=== PATIENT | female | born 1945 | race Caucasian/White ===

== ENCOUNTER 2024-12-18 08:02 | Inpatient (IN) | payer MEDICARE, BC, SELFPAY ==
[2024-12-18] VITALS (24 sets, daily range): BP systolic 115–140; BP diastolic 57–103; PULSE 2–125; BMI 53.7; BMI 53.2
--- NOTE | 2024-12-18 05:09 | ED.GENMED ---
History of Present Illness
General
Chief Complaint: Breathing Problem
Source: patient, ambulance crew, [facility] and physician
Exam Limitations: none
Time Seen by Provider: 12/18/24 04:44
Nursing documentation reviewed up to this point in time: agreed with
History of Present Illness
History of Present Illness:
The patient is a 79-year-old female with a recent history of atrial fibrillation and suspected heart failure, which was identified during her recent visit to [facility]. She was recently discharged to [facility]. She is found to have
worsening hypoxia they are also tachycardic specifically significantly hypoxic today after she took her CPAP off due to it not fitting correctly earlier in the evening. Currently pulse ox was very low in the [facility] facility. She did have some
shortness of breath and has had some difficulty with increased phlegm. Does have a history of smoking and a history of COPD.
Review of Systems
Review of Systems
Allergies reviewed?: Yes
All Other Systems: ROS reviewed and negative except as documented in HPI and ROS
Phy Exam
Physical Exam
Physical Exam:
GENERAL: Alert , in no apparent distress
EYE: pupils equal and reactive
NECK: Supple, no significant adenopathy.
ENT: o/p clr, mmm.
CARDIAC: Regular rate and rhythm .
LUNGS: Diffuse expiratory rales
ABDOMEN: Soft, without focal tenderness, no r/g, no cvat
NEUROLOGICAL: Alert and oriented, no focal neuro deficits
SKIN: Warm and dry, skin intact.
MUSCULOSKELETAL: No edema, well perfused.
PSYCH: Normal and appropriate interaction.
Scores
Heart Failure Risk
Heart Failure Risk Score: Not Applicable
Course
Orders/Labs/Results
Orders:
Orders
12/18/24 04:44
Electrocardiogram (*1) Stat
Reason for Study: Other
Other Reason for Exam: chest pain
EKG- Treatment ONCE
CR Chest Portable - 1 View Urgent
Comment:
Reason For Exam: sob
Reason Study Needs to be Portable: Patient Unstable
12/18/24 05:02
Complete Blood Count/With Diff Urgent
Comprehensive Metabolic Panel Urgent
Free T4 Urgent
Comment: ADD ON
Magnesium Urgent
TSH Urgent
12/18/24 05:10
NT-proBNP Urgent
Troponin I Urgent
12/18/24 05:14
Cefepime HCl [Maxipime] 2,000 mg IV NOW STA
Furosemide [Lasix] 40 mg IV NOW STA
12/18/24 Breakfast
Cholesterol Lowering
At Your Request: Full Participation
Cholesterol Lowering: Sodium, 2 Gram
12/18/24 06:04
Vancomycin [Vancocin] 2,000 mg 0.9% Sodium Chloride 500 ml [Nss] 500 ml IV NOW
12/18/24 06:25
Cefepime HCl [Maxipime] 2,000 mg .ROUTE .STK-MED ONE
12/18/24 07:11
Admit/Transfer Patient As Directed
Co-Sign Provider:
Level of Care: Inpatient admission
Assign to:: IMU- Intermediate Care
Physician / Group: [facility]
Diagnosis: Hypoxic respiratory failure
Reason for Hospitalization: Hypoxia
Expected length of stay greater than two midnights?: Yes
ELOS- Estimated Length of Stay in days: 2
I certify the patient meets the requirements for IP care: Yes
PRN Pain Medication Management As Directed
May give lesser potent ordered pain med per pt: Yes
preference::
Protocol:: Medication orders for pain may be administered in a
manner that supports deferring to patient preference
when the pt is:
- Requesting an ordered lesser potent pain medication.
Least to most potent pain medications are defined
as: acetaminophen < NSAID < tramadol < opioids
(morphine, oxycodone, hydromorphone).
- Requesting a lesser dose of the same medication IF
ORDERED.
- Requesting a less intrusive route of administration
if both routes are prescribed by the provider (PO <
IV).
12/18/24 07:12
Code Status As Directed
Resuscitation Status: Do not resuscitate
Reached after discussion with pt or family/Healthcare POA: Yes
12/18/24 07:13
DNR Bracelet Application ONCE
12/18/24 07:21
COVID-19 Antigen Stat
Source: Nasal Swab
Influenza A+B Rapid Molecular Stat
MOIRA Source: Nasal Swab
Specimen Description:
12/18/24 07:26
Arterial Blood Gas Stat
%Oxygen/Room Air: 30
Aspirin Chewable [Low Strength Aspirin] 324 mg PO NOW STA
12/18/24 07:30
Diltiazem 125 mg/125 ml Nss [Cardizem] 125 mg in 125 ml IV PER PROTOCOL
Initial dose in mg/hr, then titrate:: 5
Titrate to keep:: Heart rate 80-100 bpm
Titrate by mg/hr:: 5 mg/hr
Frequency of titrations (minutes):: 15
Maximum dose in mg/hr:: 15
12/18/24 09:45
Apixaban [Eliquis] 5 mg PO BID
Diltiazem 125 mg/125 ml Nss [Cardizem] 125 mg in 125 ml IV PER PROTOCOL
Currently infusing. Continue current dose and titrate:: Yes
Titrate to keep:: Heart rate 80-100 bpm
Titrate by mg/hr:: 5 mg/hr
Frequency of titrations (minutes):: 15
Maximum dose in mg/hr:: 15
Guaifenesin/Dextromethorphan [Robitussin Dm] 5 ml PO Q4HPRN PRN
Ipratropium/Albuterol Sulfate [Duoneb] 3 ml INH R Q4HPRN PRN
Ipratropium/Albuterol Sulfate [Duoneb] 3 ml INH R QID
Nicotine [Nicoderm Transdermal] 7 mg TRANSDERM DAILY
12/18/24 09:45
Echo 2D MMode Color/Doppler Routine
Reason for Study: heart failure
CARDIOLOGY CONSULT Routine
Consulting Provider: Robinson Love
Was physician already notified: Yes
HF DIETARY CONSULT Routine
HF EDUCATOR CONSULT Routine
Comment:
WOUND/OSTOMY CONSULT Routine
Reason for Consult: sacral wound
VTE Contraindication Routine
VTE Mechanical Device Contraindication: Medical Contraindication
Pharmocologic Contraindication: Medical Contraindication
Sputum Culture [Respiratory Culture/Gram Stain] Routine
MOIRA Source: Sputum
Specimen Description:
Activity As Directed
Activity Level: With Assistance
Intake/ Output As Directed
Frequency: Per unit guidelines
Patient Education As Directed
Type: CHF folder
Comment: give on admission. Document in Interdisciplinary Education record
Sleep Apnea Assessment by RN As Directed
Comment:
Physician Instructions:
Vital Signs As Directed
Frequency: Other
Additional Instructions:: Q12 or per unit guidelines if more frequent.
Weight As Directed
Frequency: Daily
Type of Scale: Standing Scale
Comment: Daily morning weight. If unable to stand, use balanced bed scale.
Weight As Directed
Frequency: Once
Type of Scale: Standing Scale
Comment: Upon Admission. If unable to stand, use balanced bed scale.
Bipap [RESP] Routine
Patient to use own unit?: No
Inspiratory Pressure (cm H2O): 10
Expiratory Pressure (cm H2O): 5
Oxygen Liter Flow: 4
Instructions: Titrate to patient comfort or home settings
O2 Therapy [RESP] Routine
Nasal Cannula Liter Flow: 4 LPM
Titrate/Wean O2 to maintain O2 sat greater than (%): 90
Pulse Ox/cont/shift [RESP] Routine
Quantity: 1
Special Instructions: Daily pulse oximetry at rest. If greater than 92% at rest also obtain pulse oximetry
while ambulating as tolerated.
12/18/24 10:00
Doxycycline Hyclate [Vibramycin] 100 mg 0.9% Sodium Chloride 250 ml [Nss] 250 ml IV Q12H
12/18/24 11:00
Atorvastatin [Lipitor] 20 mg PO DAILY
Levothyroxine [Synthroid] 175 mcg PO DAILY@0600
Metoprolol [Lopressor] 50 mg PO BID
12/18/24 16:00
Furosemide [Lasix] 80 mg IV BID AT 0800,1600
12/18/24 16:24
Troponin I Q6H
Comment: at admission & every 6 hours x 2 (3 total), ECG to be done with each level
12/18/24 23:17
Troponin I Q6H
Comment: at admission & every 6 hours x 2 (3 total), ECG to be done with each level
12/18/24 23:21
Legionella Urinary Antigen Routine
MOIRA Source: Urine
Specimen Description:
Strep pneumoniae Antigen Routine
MOIRA Source: Urine
Specimen Description:
12/19/24 05:03
Basic Metabolic Panel IN AM
Complete Blood Count/No Diff IN AM
Magnesium IN AM
12/19/24 08:00
Aspirin Low Dose EC [Aspir Low (Enteric Coated)] 81 mg PO DAILY
12/20/24 06:00
Basic Metabolic Panel IN AM
12/21/24 06:00
Basic Metabolic Panel IN AM
Abnormal Lab Results
12/18/24 12/18/24 12/18/24
05:02 05:10 07:26
RBC 4.06 L 10^6/uL
(4.20-5.40)
Hgb 10.3 L g/dL
(12.0-16.0)
Hct 35.7 L %
(37.0-47.0)
MCH 25.4 L pg
(27.0-31.0)
MCHC 28.9 L g/dL
(33.0-37.0)
RDW 22.5 H %
(11.5-14.5)
MPV 11.9 H fL
(7.4-10.4)
Abs Immat Gran (auto) 0.1 H 10^3/uL
(0-0.05)
Absolute Neuts (auto) 6.8 H 10^3/uL
(1.4-6.5)
Absolute Lymphs (auto) 1.0 L 10^3/uL
(1.2-3.4)
Absolute Monos (auto) 1.4 H 10^3/uL
(0.1-0.6)
Immature Gran % 0.6 H %
(0-0.5)
Lymphocytes % 10.7 L %
(20.5-51.1)
Monocytes % 15.0 H %
(1.7-9.3)
pCO2 75 H* mmHg
(32-35)
pO2 66 L mmHg
(83-108)
HCO3 52.1 H* mmol/L
(21-28)
Chloride 96 L mmol/L
(98-107)
Carbon Dioxide 48 H mmol/L
(22-30)
BUN 21 H mg/dl
(7-17)
Troponin I 0.036 H* ng/ml
Total Protein 5.3 L g/dl
(6.3-8.2)
Albumin 2.9 L g/dl
(3.5-5.0)
TSH 8.05 H uIU/ml
(0.47-4.68)
12/18/24 05:02
12/18/24 05:02
Vital Signs
Initial and Last Documented VS:
Initial Vital Signs
Temp Pulse Resp BP Pulse Ox
98.4 F 127 40 136/73 95
12/18/24 04:37 12/18/24 04:37 12/18/24 04:37 12/18/24 04:37 12/18/24 04:37
Last Documented Vital Signs
Temp Pulse Resp BP Pulse Ox
98 F 84 18 168/97 95
12/19/24 15:17 12/19/24 18:06 12/19/24 18:06 12/19/24 12:58 12/19/24 18:06
MDM/Problems Addressed
MDM/Problems Addressed:
79-year-old female presenting from nursing facility with concerns of shortness of breath and worsening hypoxia over the past few days also has had increased respiratory secretions. Was recently in [facility] diagnosed with a flutter..
Patient is currently Eliquis and metoprolol. Additionally has had increased fluid retention to her legs and arms. Here she is tachycardic pulse ox is in the low 90s on 6 L. She is currently in a flutter. Blood pressure in the 130s over 70s. She
is interactive and able to speak. Chest x-ray was performed that showed a right lower lobe consolidation as well as increased vascular markings and potential signs of some slight edema diffusely. She was started on antibiotics as well as diuretic.
Plan to admit for further treatment.
*Critical Care Note
Total Time (30-74mins, 75-104mins- exclusive of procedures): Not Applicable
ED Attending Note
-
Portions of this chart may have been created with voice recognition software.� Occasional wrong word or��sound alike� substitutions may have occurred due to the inherent limitations of voice recognition software.
Discharge Plan
Departure
Patient Disposition: Admit
Date of Disposition: 12/18/24
Time of Disposition: 06:14
Admit to: IMU
Admit to doctor: Benito
Presentation/result/management discussed w/ accepting MD/DO: Hospitalist
Patient with high blood pressure during this ER visit?: No
Condition: Good
Covid-19: Not Applicable
Discharge Problem:
Pneumonia, Hypoxemia, Heart failure
Interventions
Interventions:
*Risk Screen - Suicide Last Done: 12/18/24 13:30
*General Assessment Last Done: 12/18/24 04:37
*Neglect/Abuse Screening Last Done: 12/18/24 04:37
*ED- Fall Risk Assessment Last Done: 12/18/24 04:37
*ED COVID-19 Vaccine History Last Done: 12/18/24 16:14
*Nursing Disposition Last Done: 12/18/24 09:26
ED- Cardiac Assessment Last Done: 12/18/24 04:45
ED- Pulmonary Assessment Last Done: 12/18/24 04:45
Discharge Date and Time
Discharge Date/Time: 12/18/24 09:30
[2024-12-18 05:56] LABS: % Basophils 0.4 % (0-2); % Eosinophils 0.7 % (0-6); % Immature Granulocytes 0.6 % (0-0.5); % Lymphocytes 10.7 % (20.5-51.1); % Neutrophils 72.6 % (42.2-75.2); Absolute Eosinophils 0.1 10^3/uL (0-0.7); Absolute Immature Granulocytes 0.1 10^3/uL (0-0.05); Absolute Monocytes 1.4 10^3/uL (0.1-0.6); Absolute Neutrophils 6.8 10^3/uL (1.4-6.5); Hematocrit 35.7 % (37.0-47.0); Hemoglobin 10.3 g/dL (12.0-16.0); Mean Corp Hgb Conc. 28.9 g/dL (33.0-37.0); Mean Corpuscular Hgb 25.4 pg (27.0-31.0); Mean Corpuscular Volume 87.9 fL (81.0-99.0); Mean Platelet Volume 11.9 fL (7.4-10.4); Nucleated Red Blood Cells % 0 %; Platelet Count 180 10^3/uL (130-400); Red Blood Cell Count 4.06 10^6/uL (4.20-5.40); Red Cell Dist. Width 22.5 % (11.5-14.5); White Blood Cell Count 9.4 10^3/uL (4.8-10.8)
[2024-12-18] MEDS: LASIX 40 MG IV (06:00)
[2024-12-18] MEDS: MAXIPIME 2000 MG IV (06:06)
[2024-12-18 06:08] LABS: NT-proBNP 1990 pg/ml; Troponin I 0.036 ng/ml
[2024-12-18 06:16] LABS: ALT (SGPT) 22 U/L (0-35); AST (SGOT) 22 U/L (14-36); Albumin 2.9 g/dl (3.5-5.0); Alkaline Phosphatase 62 U/L (38-126); Blood Urea Nitrogen 21 mg/dl (7-17); Calcium 8.6 mg/dl (8.4-10.2); Chloride 96 mmol/L (98-107); Estimated Creatinine Clearance 102 ml/min; Glucose 81 mg/dl (70-99); Magnesium 2.1 mg/dl (1.6-2.3); Potassium 3.7 mmol/L (3.5-5.1); Sodium 144 mmol/L (135-145); Total Bilirubin 0.8 mg/dl (0.2-1.3); Total Protein 5.3 g/dl (6.3-8.2); eGFR > 60.00
[2024-12-18] MEDS: VANCOCIN 540 MG IV (06:27)
[2024-12-18 06:28] LABS: TSH 8.05 uIU/ml (0.47-4.68)
[2024-12-18 06:30] LABS: Carbon Dioxide 48 mmol/L (22-30)
--- NOTE | 2024-12-18 06:48 | HPS.HSE ---
Family Physician
-
Family Physician: NOT KNOW UNKNOWN - PT DOES
Chief Complaint
-
Hypoxia
History of Present Illness
Patient is a 79-year-old female with past medical history significant for recent diagnosis of obstructive sleep apnea, atrial flutter, congestive heart failure, hypothyroidism, oxygen dependent COPD who presents from [facility] with acute hypoxic
episode.
Patient was recently discharged from [facility] where she was diagnosed as stated above and placed on 4 L on discharge. She was on furosemide 80 mg twice daily diltiazem and started on Eliquis. At the time of discharge she was satting mid
90s on 4 L. According the patient and family she started coughing 2 days ago. Initially it was yellow. However today from liquid diet patient stated she had greenish cough production which occurred 4 times. She was still satting on her usual 4 L
when she went to sleep. However she was found by hospital staff hypoxic without oxygen and CPAP off. Later attempted to place her back on BiPAP but dimension was nonfunctional. By time EMS arrived the patient was hypoxic to the low 40s. She was
still awake and responsive. EMS placed the patient on nonrebreather and got her oxygen up to the mid 90s. She was slowly titrated down. When the titrated to 5 L she was satting in the low 90s. However she desatted again and she was placed on
nonrebreather and brought to the emergency department.
She was not complaining of any chest pain. She denies having recent fevers or chills. She has no known sick contacts. It appears they have been titrating diltiazem and Lasix and currently she is getting 80 mg twice daily of Lasix and 360 mg daily
of diltiazem.
She was afebrile with temp of 98.4, blood pressure was 136/75, she was tachycardic to 127. Respiratory rate was in the mid 30s. ECG shows atrial flutter at a rate of 127. Chest x-ray revealed small pleural effusions, pulmonary edema with patchy
scattered opacities in the right lower lobe. Cannot rule out a retrocardiac opacity.
Troponin was elevated at 0.036, BNP was 1900.
CBC shows a white count 9.4 with otherwise unremarkable hemoglobin and platelets. Electrolytes notable for bicarb of 46, BUN, creatinine, LFTs were normal.
Medical History
Past Medical History
Past Medical History: Reports Other
Additional Past Medical History:
CHF unknown EF
Atrial flutter on anticoagulation
Obstructive sleep apnea
Emphysema on 4 L home O2
Hypothyroidism
Past Surgical History: Reports Other
Additional Past Surgical History:
Thyroidectomy
Right knee replacement
Social History
Tobacco: Smoker
Alcohol: None
Drug: None
Living: Halfway
Employment: Retired
Family History
Family History: Not pertinent
Allergies / Home Medications
Allergies reflects when Allergies were last updated in [facility].
Home Medications with original date entered in [facility]
Allergy/Medication List:
Allergies
Allergy/AdvReac Type Severity Reaction Status Date / Time
lisinopril Allergy Unknown Verified 12/18/24 04:35
Home Medications
acetaminophen 325 mg tablet (Tylenol) 650 mg PO Q6H PRN mild pain 12/18/24
apixaban 5 mg tablet 5 mg PO BID 12/18/24
aspirin 81 mg tablet 81 mg PO DAILY 12/18/24
atorvastatin 20 mg tablet 20 mg PO DAILY 12/18/24
bisacodyl 10 mg rectal suppository 10 mg HI Q12 PRN constipation 12/18/24
diltiazem HCl 360 mg capsule,extended release 24 hr 360 mg PO DAILY 12/18/24
furosemide 40 mg tablet (Lasix) 40 mg PO BID 12/18/24
ipratropium 0.5 mg-albuterol 3 mg (2.5 mg base)/3 mL nebulization soln 3 ml inhalation Q4H PRN wheezing 12/18/24
levothyroxine 175 mcg tablet 175 mcg PO DAILY 12/18/24
magnesium hydroxide 400 mg/5 mL oral suspension (Milk of Magnesia) 30 ml PO BID PRN constipation 12/18/24
magnesium oxide 400 mg PO TID 12/18/24
metoprolol tartrate 25 mg tablet 50 mg PO BID 12/18/24
nicotine 7 mg/24 hr daily transdermal patch 1 patch transdermal Q24H 12/18/24
potassium, sodium phosphates 280 mg-160 mg-250 mg oral powder packet (Phos-NaK) 1 packet PO BID PRN low blood sugar 12/18/24
Review of Systems
-
History Source: Patient
Constitutional: Reports No Symptoms
EENT: Reports No Symptoms
Respiratory: Reports Cough and Trouble Breathing
Cardiac: Reports No Symptoms
Abdomen/GI: Reports No Symptoms
: Reports No Symptoms
Musculoskeletal: Reports No Symptoms
Skin: Reports No Symptoms
Neurological: Reports No Symptoms
Endocrine: Reports No Symptoms
Hematologic/Lymphatic: Reports No Symptoms
Psych: Reports No Symptoms
Physical Exam
Vital Signs
Vital Signs
Temp Pulse Resp BP Pulse Ox
98.4 F 127 32 128/80 90
12/18/24 04:37 12/18/24 06:30 12/18/24 06:30 12/18/24 06:00 12/18/24 06:30
Physical Exam
General: Respiratory Distress and Obese
HEENT: NormoCephalic, Anicteric, Moist mucous membranes, Atraumatic, PERRLA, Guerra Conjunctivae and Oxygen
Respiratory: Non Labored Respirations and Decreased Breath Sounds
Cardiac: S1/S2, Regular Rhythm and Tachycardia
Breast: Deferred by me
GI: Soft, Non Tender, Non Distended and Normal Bowel Sounds
Rectal: Deferred by Provider
Genito-urinary: Deferred by me
Musculoskeletal: No Clubbing, No Cyanosis, Edema, Left Lower Extremity and Edema, Right Lower Extremity
Skin: Warm
Neuro: AO x 3 and Nonfocal/grossly intact
Hematologic/Lymphatic: No Lymphadenopathy
Psych: Calm
Laboratory Results
-
12/18/24 05:02
12/18/24 05:02
Laboratory Results
Total Bilirubin 0.8 mg/dl (0.2-1.3) 12/18/24 05:02
AST 22 U/L (14-36) 12/18/24 05:02
ALT 22 U/L (0-35) 12/18/24 05:02
Alkaline Phosphatase 62 U/L (38-126) 12/18/24 05:02
Troponin I 0.036 ng/ml H* 12/18/24 05:10
Data Reviewed
-
Diagnostic Radiology: Image Personally Visualized and interpreted
CT Scan: Report Reviewed by me
Medical Tests (Nuc Med, Echo, EKG etc): Image Personally Visualized and interpreted
Lab Data: Labs Reviewed by me
Old Records: Reviewed
Impression/Plan
-
IMPRESSION:
79 y.o female with COPD on 4 L, MARLEY on cpap, CHF, Aflutter pesenting to the emergency department from [place] with acute hypoxia and cough. Cough x 3 days, now productive of green sputum. She is not wheezing but has shallow breaths. She is volume
overloaded with elevated BNP and troponin but no ischemia on ECG. She is in regular tachycardia fixed at rate of 127 c/w aflutter. Hypoxic and possible hypercarbic respiratory failure
PLAN:
1. PNA/COPD exacerbation -
- admit to IMU
- afebrile and no leukocytosis, no blood cultures
- obtain sputum culture
- urine pneumococcal ag
- IV Vanc/ceftriaxone/doxycycline for now
- solumedrol 40 q 12
- nebs RTC and prn
- ABG with chronic resp acidosis and metabolic alk, no indication for bipap unless work of breathing worsenes.
- pulmonary consultation
2. CHF exacerbation - Recently diagnosed but likely quite chronic. No hx of CAD. BNP 1900
- responding to lasix, continue lasix 80mg iv q 12
- continue metoprolol
- daily weights and i/os
- will diurese as BP tolerates but likely will remain on 4 L of oxygen
- obtain records from [facility] in am
- echo
- getting treated for hypothyroidism, check [facility] records, continue levothyroxine
3. Uncontrolled Aflutter - Rate 127 steadily. Not particulary compromising cardiac status
- continue with diltiazem gtt (unlikely to break)
- continue metoprolol
- continue eliquis
- cardiology consultation
5. Trop elevation - Suspect hypoxic injury and possibly demand ischemia. No cp.
- oxygenate and treat copd/pna
- diuresis
- rate control
- cycle enzymes, continue eliquis for now, unless trop rising
- asa 324 x 1
- echo
4. MARLEY
- CPAP/BIPAP prn and hs
5. Chronic wound
- ostomy consultation
DVT PPX - on apixaban,
Code status - DNR
[2024-12-18 07:09] LABS: Anisocytosis 1+; Hypochromasia Slight; Normal RBC Morphology No
[2024-12-18 07:37] LABS: B.E. 24.2 mmol/L; O2 Saturation % 95.2 % (94-98); PO2 66 mmHg (83-108); pH 7.45 (7.35-7.45)
[2024-12-18 07:39] LABS: HCO3 52.1 mmol/L (21-28); PCO2 75 mmHg (32-35)
[2024-12-18 07:54] LABS: COVID-19 Antigen Negative (Negative)
--- NOTE | 2024-12-18 09:31 | W.PN.HOSP.TC ---
Today's Communication/Plan
-
Admit to IMU
Cardiology consult
Pulmonary consult
lower extremity Doppler ultrasound
Echocardiogram
Diuresis
BiPAP
Assessment / Plan
Assessment / Plan
Gen-awake, not fully alert, conversational dyspnea, morbid obesity
HEENT-NC, AT, anicteric, clear oral mm
Neck-supple
CV-reg, no M, +S1/S2
Lungs-decreased breath sounds bilaterally
Abd-soft, NT, ND
Ext-bilateral lower extremity edema, right greater than left
Musculoskeletal-no cyanosis, clubbing
Skin-warm and dry
Neuro-grossly non-focal
Psych-calm, cooperative
Acute on chronic hypoxic/hypercapnic respiratory failure -suspect multifactorial etiology including underlying obesity hypoventilation, MARLEY, pulmonary edema from heart failure, bronchitis, etc.
Oxygenation adequate on 5 L nasal cannula. ABG noted, PCO2 75, PO2 66, bicarb 52, pH 7.4. Suspect chronic hypercapnia and hypoxia.
Does not normally use oxygen at home. Was using CPAP at home for the past 7 months.
Recently hospitalized at [facility] 7 days ago, discharged 2 days ago with transition to BiPAP. Discharged to [facility]. Subsequently admitted to our hospital for hypoxia.
New onset of cough productive of phlegm, yellow and green, 2 days ago. Denies fevers or chills. Reportedly did not get antibiotics in outside hospital. Try to obtain records. Clinically doubt pneumonia.
She is afebrile, WBC count is normal. Continue doxycycline for suspected bronchitis.
Patient denies history of COPD and states that her outpatient general hardware salesperson worked her up and told her that she does not have COPD despite lifelong smoking.
Continue BiPAP therapy at nighttime and with naps.
Pulmonary consulted.
Suspected acute on chronic heart failure exacerbation -unknown type. Echocardiogram pending. Continue IV Lasix. Looks grossly volume overloaded. BNP 1989. Cardiology consulted.
Chest x-ray with findings of pulmonary edema, I have reviewed it myself. Official report pending.
Rapid atrial flutter -continue Eliquis. IV Cardizem ordered. Is on diltiazem and metoprolol at home. Cardiology consulted.
Troponin elevation - possibly due to acute nonischemic myocardial injury. Will trend troponins.
Tobacco dependence -cessation advised.
MARLEY -previously on CPAP at home, transitioned to BiPAP on discharge a few days ago from [facility]. Patient states that the mask did not fit her well in the [facility] which likely contributed to the hypoxic event prompting her admission.
Hypothyroidism -continue levothyroxine. History of thyroidectomy.
Morbid obesity due to excess calories
DNR/DNI -confirmed with patient and niece.
Patient was living in a condo in [place] prior to her hospitalization a week ago.
Patient's niece updated at the bedside.
Anticipated Discharge: > 48 hours
Subjective/Interval History
-
Date of Service: December 18, 2024
Patient seen and examined. Able to answer questions but slow to respond. Denies shortness of breath currently.
Patient's niece is at the bedside and able to corroborate history and review of systems.
Objective Data
-
Labs:
Laboratory Results
12/18/24 12/18/24
05:02 07:26
WBC 9.4
Hgb 10.3 L
Hct 35.7 L
Plt Count 180
HCO3 52.1 H*
Sodium 144
Potassium 3.7
Chloride 96 L
Carbon Dioxide 48 H
BUN 21 H
Creatinine 0.6
Glucose 81
Calcium 8.6
Total Bilirubin 0.8
AST 22
ALT 22
Alkaline Phosphatase 62
Vital Signs:
Vital Signs
Temp Pulse Resp BP Pulse Ox
98.4 F 85 15 122/67 93
12/18/24 04:37 12/18/24 09:00 12/18/24 09:16 12/18/24 09:00 12/18/24 09:16
I&O
12/17/24 12/18/24 12/19/24
06:59 06:59 06:59
Output Total 2199 / 2199
Balance -2199 / -2199
Review of Systems
-
History Source: Patient
All other systems: Reviewed and negative
[2024-12-18 09:46] LABS: Free T4 0.86 ng/dl (0.78-2.19)
[2024-12-18] MEDS: DUONEB INH ×2 (10:18→10:27)
[2024-12-18] MEDS: DUONEB 3 ML INH ×3 (10:25→17:35)
[2024-12-18] MEDS: ELIQUIS 5 MG PO ×2 (10:33→19:39)
[2024-12-18] MEDS: LIPITOR 20 MG PO (10:33)
[2024-12-18] MEDS: DELTASONE 50 MG PO (10:33)
[2024-12-18] MEDS: LOPRESSOR 50 MG PO ×2 (10:33→19:39)
[2024-12-18] MEDS: SYNTHROID 175 MCG PO (10:39)
--- NOTE | 2024-12-18 10:39 | CON.CAR ---
Addendum entered and electronically signed by Nancy Kincaid PA-C 12/18/24 15:53:
Records obtained and reviewed from [facility]. Last cardiology office visit 01/01/2024. Follows with Dr. Guevara for hypertension, hypercholesterolemia, abdominal aortic aneurysm which by last measurements were 4.4 x 4.1 cm on 09/2021 study, PVD, nicotine
dependence. At time of that office visit was on losartan. No listed history of arrhythmia or heart failure previously. EKG from 12/2023 visit sinus rhythm with occasional PVCs.
Addendum entered and electronically signed by Robinson Love MD 12/18/24 11:35:
I saw and examined the patient.
The SECURITY SOLUTIONS ENGINEER or PA's note was reviewed and I agree with the note.
Comment: General: Well developed, well nourished in NAD.
Neck: Supple, no JVD, HJR, carotids +2 B/L, no bruits bilaterally.
Heart: Non displaced PMI, RRR, no murmurs, No S3, S4, no rubs.
Lungs: Scattered rhonchi
Extremities: No clubbing, cyanosis or edema bilaterally.
Neuro: Grossly nonfocal, awake, alert and oriented x3
Tawana has a history of atrial fibrillation, CHF, hypothyroidism, ongoing tobacco abuse, AAA, memory deficit. She was admitted to [facility] a week and a half ago due to falls. She was treated for CHF and also was rate controlled in
atrial fibrillation. She was started on Lopressor, Cardizem CD, and Eliquis. Also potassium was repleted. She was discharged on 4 L. She was [place] [facility] [place] less than 24 hours and is readmitted with shortness of breath and acute CHF.
Will treat CHF with IV Lasix. Will check echocardiogram. Will add amiodarone for rate control. Unclear whether she might be a candidate for SAMMI/cardioversion versus cardioversion alone after 4 weeks of anticoagulation. Discussed with patient and
patient's niece at bedside in detail. Will get records from [facility].
Original Note:
Consultation
Consultation Request
Date/Time Consultation Performed: 12/18/24
Requesting Provider: Dr. Amador
Performing Provider: Nancy Kincaid PA-C for Dr. Love
Reason for Consultation: CHf, aflutter
Medical History
-
Chief Complaint: SOB
History of Present Illness:
Patient is a 79 yo F with PMH of hypothyroidism resulting from nodule requiring thyroidectomy, ongoing tobacco use, abdominal aortic aneurysms, baseline forgetfulness who was admitted to [facility] a week and a half ago due to
falls. She reportedly had had 4 falls in a 2-month time span, 2 of which were within a 24-hour period leading up to admission. She reports the falls were secondary to weakness rather than dizziness or lightheadedness and denies loss of
consciousness with the events. She was living independently at the time. On admission to [facility] she was noted to be in acute heart failure and also to have rapid A-fib, both of which were new diagnoses for patient. She was diuresed
and started on Lopressor, cardizem cd, and Eliquis. Her potassium was also repleted as was noted to be low on arrival. She was discharged to [facility] on 12/16 PM, then yesterday was noted to have worsening shortness of breath and was brought
to [facility] for further evaluation. She was noted to be hypoxic requiring supplemental O2 and felt to be in heart failure. Also in rapid atrial flutter. Cardiology consulted for evaluation. Patient's niece is at bedside and helps to provide history.
PMH:
Admission to [facility] 12/2024 for new A-fib and CHF
Hypertension
Hyperlipidemia
Thyroid nodule status post thyroidectomy
Resultant hypothyroidism
AAA
Ongoing tobacco use
Obesity
MARLEY
Past Medical History
Past Medical History: Other (in HPI)
Social History
Tobacco: Smoker
Alcohol: None
Living: Other (was living independently prior to [facility] admission, was discharged to [facility])
Family History
Family History: CAD and Hypertension
Allergies / Home Medications
Allergy/AdvReac Type Severity Reaction Status Date / Time
lisinopril Allergy Unknown Verified 12/18/24 04:35
�Medication �Instructions �Recorded �Confirmed �Type
acetaminophen 325 mg tablet 650 mg PO Q6H PRN mild pain 12/18/24 12/18/24 History
(Tylenol)
apixaban 5 mg tablet 5 mg PO BID Blood Clot 12/18/24 12/18/24 History
Prevention/Tx
aspirin 81 mg tablet 81 mg PO DAILY Blood Clot 12/18/24 12/18/24 History
Prevention/Tx
atorvastatin 20 mg tablet 20 mg PO DAILY High Cholesterol 12/18/24 12/18/24 History
bisacodyl 10 mg rectal suppository 10 mg AR Q12 PRN constipation 12/18/24 12/18/24 History
diltiazem HCl 360 mg 360 mg PO DAILY Arrhythmia 12/18/24 12/18/24 History
capsule,extended release 24 hr
furosemide 40 mg tablet (Lasix) 40 mg PO BID Fluid 12/18/24 12/18/24 History
Retention/Swelling
ipratropium 0.5 mg-albuterol 3 mg 3 ml inhalation Q4H PRN wheezing 12/18/24 12/18/24 History
(2.5 mg base)/3 mL nebulization
soln
levothyroxine 175 mcg tablet 175 mcg PO DAILY Thyroid 12/18/24 12/18/24 History
magnesium hydroxide 400 mg/5 mL 30 ml PO BID PRN constipation 12/18/24 12/18/24 History
oral suspension (Milk of Magnesia)
magnesium oxide 400 mg PO TID Supplement 12/18/24 12/18/24 History
metoprolol tartrate 25 mg tablet 50 mg PO BID Heart 12/18/24 12/18/24 History
Disease/Condition
nicotine 7 mg/24 hr daily 1 patch transdermal Q24H Smoking 12/18/24 12/18/24 History
transdermal patch Cessation
potassium, sodium phosphates 280 1 packet PO BID PRN low blood sugar 12/18/24 12/18/24 History
mg-160 mg-250 mg oral powder
packet (Phos-NaK)
Review of Systems
-
History Source: Patient and Family
All other systems: Negative unless noted
Physical Exam
Vital Signs
Temp Pulse Resp BP Pulse Ox
98.4 F 126 38 140/88 94
12/18/24 04:37 12/18/24 10:33 12/18/24 10:25 12/18/24 10:33 12/18/24 10:25
Lab Results
12/18/24 05:02
12/18/24 05:02
Troponin I 0.036 ng/ml H* 12/18/24 05:10
Pev-D-Nullvfaatma Pept 1990 pg/ml 12/18/24 05:10
Physical Exam
General: No Apparent Distress, Comfortable and Other (obese. on supp O2)
HEENT: Normocephalic, Anicteric and Moist Mucous Membranes
Respiratory: Crackles and Non Labored Respirations
Cardiac: S1/S2 and Irregular Rhythm
GI: Soft, Non Tender, Non Distended and Normal Bowel Sounds
Musculoskeletal: No Clubbing, No Cyanosis and Edema (1+ of B/L LE)
Skin: Warm, Dry and Other (scattered ecchymoses of B/L UE)
Neuro: AO x 3
Impression / Plan
-
Primary Director Of Retail Analytics: Dr. Guevara of [facility]
Assessment:
SOB
Atrial flutter with RVR
Acute HFpEF
Acute on chronic hypoxic/hypercapnic respiratory failure
Elevated troponin, suspected non ischemic myocardial injury
Admission to [facility] 12/2024 for new A-fib and CHF
Hypertension
Hyperlipidemia
Thyroid nodule status post thyroidectomy
Resultant hypothyroidism
AAA
Ongoing tobacco use
Obesity
MARLEY
Forgetfulness
DNR CODE STATUS
ECHO 12/18/24: pending
Plan:
- Patient with recent admission to [facility] for new A-fib and heart failure now presents to [facility] less than 24 hours after discharge with shortness of breath. Found to be in a flutter with RVR and acute heart failure.
- Records from [facility] requested for our review. Also requested records from Dr. Guevara's office
- proBNP 1989. CXR report pending but by my review appears to have pulm edema. Continue diuresis with IV Lasix 80 mg twice daily. Creatinine stable at 0.6. Had been discharged on p.o. Lasix 40 mg twice daily. Dry weight unknown
- CHF education
- Wean supplemental oxygen as able, placing on BIPAP
- Check echo
- Continue Lopressor. Discussed with patient and niece at bedside, will plan to initiate amiodarone for rate/rhythm control. Holding outpatient Cardizem for now, however could consider resuming. follow QTc by EKG
- Continue Eliquis
- Pending clinical course could consider for SAMMI/cardioversion prior to discharge
- TSH 8 with compensated free T4. Defer adjustment in Synthroid dosing to primary service
- with mild trop elevation, 0.036. no CP. trend to peak. suspected nonischemic myocardial injury
- tobacco cessation encouraged
- d/w nursing
Data Reviewed
-
EKG: Tracing Personally Visualized and interpreted
Radiology: Report Reviewed by me
Medical Tests (Nuc Med, Echo etc): Report Reviewed by me
Labs: Labs Reviewed by me
Old Records: Reviewed
[2024-12-18] MEDS: CARDIZEM 125 IV (10:48)
--- NOTE | 2024-12-18 11:40 | CARDSERVLU ---
Echocardiogram with [facility] completed after protocol screening completed. Allergies verified.
Patent IV site: _Left forearm 22 G PC____
IV site flushed with 0.9% NaCl pre and post administration.
Diluted bolus method utilized to enhance visualization of ventricular andrade.
Total volume given: __3__ mL
Patient tolerated all procedures well without complications.
[2024-12-18] MEDS: NICODERM TRANSDERMAL 7 MG TRANSDERM (11:46)
[2024-12-18] MEDS: VIBRAMYCIN 260 MG IV ×2 (11:47→21:01)
[2024-12-18] MEDS: PACERONE 400 MG PO ×3 (12:55→21:01)
--- NOTE | 2024-12-18 13:14 | CM ---
Patient seen at bedside in IMU. Patient on bipap and niece at bedside. Patient stated that CM could talk to niece and was able to list off nieces and nephews. Patient from [facility] per transfer form and patient. Patient is there since 12/16/24.
CM called to Liaison at [facility] to clarify bed hold and level of care needs. Patient niece requested information about POA documentation and information provided. Niece asking about financial POA documents and CM confirmed unable to provide blank
financial poa documents. Patient niece to go to bank and bring patient documentation that bank requests at a later time. CM will continue to follow for discharge planning needs.
Plan; return to SNF; pending [facility] response
--- NOTE | 2024-12-18 13:34 | WOUNDNOTE ---
RIGHT LOWER BACK
--- NOTE | 2024-12-18 13:47 | WOUNDNOTE ---
WO RN NOTE: Reviewed chart and met with patient. Patient assessed with RNJackelin. All wounds POA and all details in worklist. Patient has had recent falls and has abrasions on right flank and right shoulder. Sacral area (folded to create a cleft)
is likely a stage 2 caused by pressure of skin fold. Left hip with dry, healed abrasion. Left heel stage 1 PI. All wound care provided as ordered. Patient is on a Centrella Max air and turning schedule with heels off-loaded. Will confirm orders with
hospitalist. Will follow as needed.
--- NOTE | 2024-12-18 14:52 | PTCARENOTE ---
Addendum entered by Jackelin Dee RN 12/18/24 18:29:
Patients heart rate is controlled when she is on bipap. When off bipap her heart rate increases into the 120s. Cardizem drip had to be discontinued earlier due to heart rate dropping into the 60s. Texted Nancy NGUYEN to notify.
Original Note:
Patient admitted from ER with respiratory failure. Patient placed on Bipap upon arrival, after 2 hours patient was able to be placed on 4 liters nasal cannula. Patients heart rate was in the 120s aflutter, and Cardizem drip was initiated,
discontinued after 30 minutes due to hear rate decreasing to the 60s. Patient is eating lunch now. Denying pain when asked. Oriented to person, place time and diagnosis.
[2024-12-18] MEDS: LASIX 80 MG IV (15:49)
[2024-12-18 17:03] LABS: Troponin I 0.037 ng/ml
[2024-12-18] MEDS: IMODIUM 2 MG PO (20:37)
[2024-12-19] VITALS (17 sets, daily range): BP systolic 95–168; BP diastolic 51–97; PULSE 2–133; O2SAT 95–96; BMI 52.7
[2024-12-19] LABS: Troponin I 0.037 ng/ml
--- NOTE | 2024-12-19 01:58 | PTCARENOTE ---
Pt placed back on BiPAP by request. Pt vitals stable at this time, spo2 95-96% 4L BiPAP 96-97%.. Pt having complaints of loose stool. Night EXECUTIVE ASSOCIATE made aware, stool sent Imodium ordered and given. Pt had no other complaints at this time. Assessment care
and vitals as charted.
[2024-12-19] MEDS: SYNTHROID 175 MCG PO (04:20)
[2024-12-19] MEDS: DESENEX/MITRAZOL/ZEASORB 1 APPLIC TOPICAL ×2 (04:25→19:41)
--- NOTE | 2024-12-19 05:16 | PTCARENOTE ---
Pt having dark brown to black appearing stool. Heme test done and resulting positive. Night CLEANER TOUCH UP WORKER made aware.
[2024-12-19 06:01] LABS: Blood Urea Nitrogen 31 mg/dl (7-17); Calcium 8.6 mg/dl (8.4-10.2); Chloride 95 mmol/L (98-107); Estimated Creatinine Clearance 100 ml/min; Glucose 86 mg/dl (70-99); Magnesium 1.9 mg/dl (1.6-2.3); Potassium 3.7 mmol/L (3.5-5.1); Sodium 146 mmol/L (135-145); eGFR > 60.00
[2024-12-19 06:09] LABS: Hematocrit 32.6 % (37.0-47.0); Hemoglobin 9.4 g/dL (12.0-16.0); Mean Corp Hgb Conc. 28.8 g/dL (33.0-37.0); Mean Corpuscular Hgb 25.7 pg (27.0-31.0); Mean Corpuscular Volume 89.1 fL (81.0-99.0); Mean Platelet Volume 13.2 fL (7.4-10.4); Platelet Count 187 10^3/uL (130-400); Red Blood Cell Count 3.66 10^6/uL (4.20-5.40); Red Cell Dist. Width 22.6 % (11.5-14.5); White Blood Cell Count 9.1 10^3/uL (4.8-10.8)
[2024-12-19 07:11] LABS: Carbon Dioxide 44 mmol/L (22-30)
[2024-12-19] MEDS: DUONEB 3 ML INH ×4 (07:25→18:04)
[2024-12-19] MEDS: NICODERM TRANSDERMAL 7 MG TRANSDERM (08:40)
[2024-12-19] MEDS: LASIX 80 MG IV ×2 (08:40→16:32)
--- NOTE | 2024-12-19 08:48 | W.PN.HOSP.TC ---
Today's Communication/Plan
-
Continue diuresis
Hold Eliquis
Monitor hemoglobin
PT/OT
Assessment / Plan
Assessment / Plan
Gen-awake, not fully alert, conversational dyspnea, morbid obesity
HEENT-NC, AT, anicteric, clear oral mm
Neck-supple
CV-reg, no M, +S1/S2
Lungs-decreased breath sounds bilaterally
Abd-soft, NT, ND
Ext-bilateral lower extremity edema, right greater than left
Musculoskeletal-no cyanosis, clubbing
Skin-warm and dry
Neuro-grossly non-focal
Psych-calm, cooperative
Acute on chronic hypoxic/hypercapnic respiratory failure -suspect multifactorial etiology including underlying obesity hypoventilation, MARLEY, pulmonary edema from heart failure, bronchitis, etc.
Oxygenation adequate on 4 L nasal cannula. ABG noted, PCO2 75, PO2 66, bicarb 52, pH 7.4. Suspect chronic hypercapnia and hypoxia.
Does not normally use oxygen at home. Was using CPAP at home for the past 7 months.
Recently hospitalized at [facility] 7 days ago, discharged 2 days ago with transition to BiPAP. Discharged to [facility]. Subsequently admitted to our hospital for hypoxia.
New onset of cough productive of phlegm, yellow and green, 2 days ago. Denies fevers or chills. Reportedly did not get antibiotics in outside hospital. Try to obtain records. Clinically doubt pneumonia.
She is afebrile, WBC count is normal. Continue doxycycline for suspected bronchitis.
Patient denies history of COPD and states that her outpatient revenue accountant worked her up and told her that she does not have COPD despite lifelong smoking.
Continue BiPAP therapy at nighttime and with naps.
Doppler ultrasound bilateral lower extremities negative for DVT, does show a right calf soft tissue fluid collection. She is not complaining of any symptoms at that location. Monitor for now.
Acute on chronic heart failure preserved EF exacerbation -clinically improving on IV Lasix. Echocardiogram shows LVEF 70 to 75%, normal RV size and function, trace tricuspid regurgitation. Continue IV Lasix. Looks grossly volume overloaded. BNP
1989. Cardiology following.
Weight trending down by 3 kg so far. I's and O's are negative.
Acute bronchitis -no evidence of pneumonia clinically. Started on empiric doxycycline and prednisone. No obvious wheezing on exam and can discontinue further steroids. Continue inhalers.
Rapid atrial flutter -now rate controlled. Started on amiodarone by cardiology. Continue metoprolol. Off Cardizem drip. Hold Eliquis for now given heme positive stools and anemia. Discussed with patient small risk of stroke in the short-term.
She agrees with holding Eliquis for now.
Acute on chronic anemia -component of acute blood loss anemia with heme positive stools, dark stools noted. Suspect acute blood loss anemia exacerbated by chronic anticoagulation with Eliquis. Suspect possible GI bleed. She does have a history of
diverticulosis and diverticular bleeding is a possibility. Hemodynamically stable. Hold Eliquis temporarily as above. Patient agreeable.
Admission hemoglobin 10.3, 9.4 this morning. Will trend. Baseline hemoglobin unknown.
Hold off on consulting GI as she is in acute heart failure and unlikely she will qualify for endoscopic evaluation, but will eventually need to do so. She states she was scheduled for colonoscopy prior to admission. Her last colonoscopy was 10
years ago, showing diverticular disease.
Troponin elevation - possibly due to acute nonischemic myocardial injury. Will trend troponins.
Hypernatremia -monitor for now.
Tobacco dependence -cessation advised.
MARLEY -previously on CPAP at home, transitioned to BiPAP on discharge a few days ago from [facility]. Patient states that the mask did not fit [facility] well in the [facility] which likely contributed to the hypoxic event prompting her admission.
Hypothyroidism -continue levothyroxine. History of thyroidectomy. TSH 8.0, free T40.86. Hold off on making any changes to levothyroxine dose. Need to ensure that she is taking it properly on an empty stomach, first thing in the morning, apart
from food or other medications.
Morbid obesity due to excess calories
DNR/DNI -confirmed with patient and niece.
PT/OT
Anticipated Discharge: > 48 hours
Subjective/Interval History
-
Date of Service: December 19, 2024
Patient seen and examined. Feeling much better, breathing improved. No complaints.
Objective Data
-
Labs:
Laboratory Results
12/19/24
05:03
WBC 9.1
Hgb 9.4 L
Hct 32.6 L
Plt Count 187
Sodium 146 H
Potassium 3.7
Chloride 95 L
Carbon Dioxide 44 H
BUN 31 H
Creatinine 0.6
Glucose 86
Calcium 8.6
Vital Signs:
Vital Signs
Temp Pulse Resp BP Pulse Ox
97.8 F 95 18 129/87 94
12/19/24 08:36 12/19/24 08:40 12/19/24 07:26 12/19/24 08:40 12/19/24 07:26
I&O
12/18/24 12/19/24 12/20/24
06:59 06:59 06:59
Intake Total 620 / 620
Output Total 3400 / 3400
Balance -2780 / -2780
Review of Systems
-
History Source: Patient
All other systems: Reviewed and negative
[2024-12-19] MEDS: ELIQUIS PO (10:43)
[2024-12-19] MEDS: LOPRESSOR 50 MG PO ×2 (11:45→19:46)
[2024-12-19] MEDS: DELTASONE PO (11:45)
[2024-12-19] MEDS: LIPITOR 20 MG PO (11:46)
[2024-12-19] MEDS: KCL 20 MEQ PO (11:46)
[2024-12-19] MEDS: ASPIR LOW (ENTERIC COATED) 81 MG PO (11:46)
[2024-12-19] MEDS: PACERONE 400 MG PO ×3 (11:46→21:22)
[2024-12-19] MEDS: VIBRAMYCIN 100 MG PO ×2 (11:50→19:41)
--- NOTE | 2024-12-19 11:57 | W.PN.CARDCBS ---
Today's Communication / Plan
-
Continue rate/rhythm control with amiodarone, beta-brittny
IV diuresis, monitor renal function, strict intake and outputs
Wean oxygen as tolerated
May require SAMMI/DCCV prior to DC pending clinical status
Impression / Plan
-
Primary Certified Court/Medical Interpreter: Dr. Guevara of [facility]
Assessment:
SOB, improving
Atrial flutter with RVR
Acute HFpEF, imprpving
Acute on chronic hypoxic/hypercapnic respiratory failure on bipap
Elevated troponin, suspected non ischemic myocardial injury
Admission to [facility] 12/2024 for new A-fib and CHF
Hypertension
Hyperlipidemia
Thyroid nodule status post thyroidectomy
Resultant hypothyroidism
AAA
Ongoing tobacco use
Obesity
MARLEY
Forgetfulness
DNR CODE STATUS
ECHO 12/18/24: pending
Plan:
- Patient with recent admission to [facility] for new A-fib and heart failure now presents to [facility] less than 24 hours after discharge with shortness of breath. Found to be in a flutter with RVR and acute heart failure.
- Records from [place] requested for our review. Also requested records from Dr. Guevara's office
- proBNP 1989. CXR report pending but by my review appears to have pulm edema. Continue diuresis with IV Lasix 80 mg twice daily. Creatinine stable at 0.6. Had been discharged on p.o. Lasix 40 mg twice daily. Dry weight unknown
- CHF education
- Wean supplemental oxygen as able, placing on BIPAP
- Check echo
- Continue Lopressor. Discussed with patient bedside, Tolerating amiodarone for rate/rhythm control. Holding outpatient Cardizem for now, however could consider resuming if HR elevated. follow QTc by EKG
- Continue Eliquis
- Pending clinical course could consider for SAMMI/cardioversion prior to discharge
- TSH 8 with compensated free T4. Defer adjustment in Synthroid dosing to primary service
- with mild trop elevation, 0.037. no CP. trend to peak. suspected nonischemic myocardial injury
- tobacco cessation encouraged
- d/w nursing
Progress Note - Certified Court/Medical Interpreter
Subjective
Date of Service: December 19, 2024
Patient seen and examined's morning. No acute events overnight. Patient resting comfortably in bed remaining on BiPAP. Heart rate improved on telemetry. Denies chest pain, shortness of breath, palpitations, or weakness.
Objective
Labs:
12/19/24 05:03
12/19/24 05:03
Labs
Hgb 9.4 g/dL (12.0-16.0) L 12/19/24 05:03
Hct 32.6 % (37.0-47.0) L 12/19/24 05:03
Plt Count 187 10^3/uL (130-400) 12/19/24 05:03
Sodium 146 mmol/L (135-145) H 12/19/24 05:03
Potassium 3.7 mmol/L (3.5-5.1) 12/19/24 05:03
BUN 31 mg/dl (7-17) H 12/19/24 05:03
Creatinine 0.6 mg/dL (0.6-1.0) 12/19/24 05:03
Glucose 86 mg/dl (70-99) 12/19/24 05:03
Troponins
12/18/24 12/18/24 12/18/24
05:10 16:24 23:17
Troponin I 0.036 H* 0.037 H* 0.037 H*
Vital Signs and I&O:
Vital Signs
Temp Pulse Resp BP Pulse Ox
97.4 F 84 18 129/87 95
12/19/24 11:03 12/19/24 11:14 12/19/24 11:14 12/19/24 08:40 12/19/24 11:14
Vital Signs
Temp Pulse Resp BP Pulse Ox
97.4 F 84 18 129/87 95
12/19/24 11:03 12/19/24 11:14 12/19/24 11:14 12/19/24 08:40 12/19/24 11:14
Intake & Output
12/17/24 12/18/24 12/19/24 12/20/24
06:59 06:59 06:59 06:59
Intake Total 620 / 620
Output Total 3400 / 3400
Balance -2780 / -2780
Physical Exam
Physical Exam
GENERAL: no acute distress, obese; on BiPAP
EYE: sclera anicteric
NECK: Supple, no JVD appreciated, no carotid bruit appreciated
ENT: normal nose, moist mucosal membranes
CARDIAC: Irregularly irregular, +S1/S2, no murmur, rubs, or gallops
CHEST/PULMONARY: Normal effort, clear breath sounds
ABDOMEN: Soft, without focal tenderness or distention
NEUROLOGICAL: Alert and oriented x3
SKIN: Warm and dry, no rash
PSYCH: Normal and appropriate interaction.
Telemetry demonstrates atrial flutter with variable AV block
--- NOTE | 2024-12-19 23:14 | PTCARENOTE ---
Pt in bed drowsy but easily arousable. Pt did spend about 5+ hours OOB in chair today. Pt mouth care done with HS care. Pt given HS medications and placed back on BiPAP for bed. Pt had no inct stool today. Pt having large amounts of incont urine. PW
replaced to protect open area on bottom. Pt not having any more inct loose stools at this time. Call garrett with in reach. Assessment care and vitals as charted.
[2024-12-20] VITALS (12 sets, daily range): BP systolic 101–132; BP diastolic 49–72; PULSE 2–77; BMI 51.6
[2024-12-20] MEDS: SYNTHROID 175 MCG PO (03:33)
[2024-12-20 04:15] LABS: % Basophils 0.1 % (0-2); % Immature Granulocytes 0.4 % (0-0.5); % Lymphocytes 8.5 % (20.5-51.1); % Monocytes 8.6 % (1.7-9.3); % Neutrophils 82.4 % (42.2-75.2); Absolute Lymphocytes 0.8 10^3/uL (1.2-3.4); Absolute Monocytes 0.8 10^3/uL (0.1-0.6); Absolute Neutrophils 7.5 10^3/uL (1.4-6.5); Hematocrit 31.6 % (37.0-47.0); Mean Corp Hgb Conc. 28.5 g/dL (33.0-37.0); Mean Corpuscular Hgb 25.4 pg (27.0-31.0); Mean Platelet Volume 12.6 fL (7.4-10.4); Nucleated Red Blood Cells % 0 %; Platelet Count 180 10^3/uL (130-400); Red Blood Cell Count 3.55 10^6/uL (4.20-5.40); Red Cell Dist. Width 22.5 % (11.5-14.5); White Blood Cell Count 9.1 10^3/uL (4.8-10.8)
[2024-12-20 04:30] LABS: Blood Urea Nitrogen 33 mg/dl (7-17); Calcium 8.9 mg/dl (8.4-10.2); Chloride 92 mmol/L (98-107); Estimated Creatinine Clearance 85 ml/min; Glucose 106 mg/dl (70-99); Potassium 3.7 mmol/L (3.5-5.1); Sodium 145 mmol/L (135-145); eGFR > 60.00
[2024-12-20 05:24] LABS: Carbon Dioxide 45 mmol/L (22-30)
--- NOTE | 2024-12-20 07:35 | W.PN.HOSP.TC ---
Today's Communication/Plan
-
Continue diuresis
Resume Eliquis
Transfer to telemetry
Monitor hemoglobin
Assessment / Plan
Assessment / Plan
Gen-awake, alert, NAD, BiPAP mask
HEENT-NC, AT, anicteric, clear oral mm
Neck-supple
CV-reg, no M, +S1/S2
Lungs-decreased breath sounds bilaterally
Abd-soft, NT, ND
Ext-bilateral lower extremity edema, right greater than left
Musculoskeletal-no cyanosis, clubbing
Skin-warm and dry
Neuro-grossly non-focal
Psych-calm, cooperative
Acute on chronic hypoxic/hypercapnic respiratory failure -suspect multifactorial etiology including underlying obesity hypoventilation, MARLEY, pulmonary edema from heart failure, bronchitis, etc.
Oxygenation adequate on 4 L nasal cannula. ABG noted, PCO2 75, PO2 66, bicarb 52, pH 7.4. Suspect chronic hypercapnia and hypoxia.
Does not normally use oxygen at home. Was using CPAP at home for the past 7 months.
Recently hospitalized at [facility] 7 days ago, discharged 2 days ago with transition to BiPAP. Discharged to [facility]. Subsequently admitted to our hospital for hypoxia.
New onset of cough productive of phlegm, yellow and green, 2 days ago. Denies fevers or chills. Reportedly did not get antibiotics in outside hospital. Try to obtain records. Clinically doubt pneumonia.
She is afebrile, WBC count is normal. Continue doxycycline for suspected bronchitis.
Patient denies history of COPD and states that her outpatient power house control room operator worked her up and told her that she does not have COPD despite lifelong smoking.
Continue BiPAP therapy at nighttime and with naps.
Doppler ultrasound bilateral lower extremities negative for DVT, does show a right calf soft tissue fluid collection. She is not complaining of any symptoms at that location. Monitor for now.
Acute on chronic heart failure preserved EF exacerbation -clinically improving on IV Lasix. Echocardiogram shows LVEF 70 to 75%, normal RV size and function, trace tricuspid regurgitation. Continue IV Lasix. Looks grossly volume overloaded. BNP
1989. Cardiology following.
Weight trending down by 6kg so far. I's and O's are negative.
Acute bronchitis -no evidence of pneumonia clinically. Started on empiric doxycycline and prednisone, now steroids discontinued. Continue inhalers.
Rapid atrial flutter -now rate controlled. Started on amiodarone by cardiology. Continue metoprolol. Off Cardizem drip. Will resume Eliquis given clinical stability.
Acute on chronic anemia -component of acute blood loss anemia with heme positive stools, dark stools noted. Suspect acute blood loss anemia exacerbated by chronic anticoagulation with Eliquis. Suspect possible GI bleed. She does have a history of
diverticulosis and diverticular bleeding is a possibility. Hemodynamically stable. Hemoglobin this morning 9.0, not a significant change compared to 24 hours ago. Doubt clinically significant bleeding. Will resume Eliquis. Discussed with
patient.
Hold off on consulting GI as she is in acute heart failure and unlikely she will qualify for endoscopic evaluation, but will eventually need to do so. She states she was scheduled for colonoscopy prior to admission. Her last colonoscopy was 10
years ago, showing diverticular disease.
Troponin elevation - possibly due to acute nonischemic myocardial injury.
Hypernatremia -improved.
Tobacco dependence -cessation advised.
MARLEY -previously on CPAP at home, transitioned to BiPAP on discharge a few days ago from [facility]. Patient states that the mask did not fit her well in the half-way which likely contributed to the hypoxic event prompting her admission.
Hypothyroidism -continue levothyroxine. History of thyroidectomy. TSH 8.0, free T40.86. Hold off on making any changes to levothyroxine dose. Need to ensure that she is taking it properly on an empty stomach, first thing in the morning, apart
from food or other medications.
Morbid obesity due to excess calories
DNR/DNI -confirmed with patient and niece.
PT/OT -SNF recommended.
Transfer to telemetry
Anticipated Discharge: > 48 hours
Subjective/Interval History
-
Date of Service: December 20, 2024
Patient seen and examined. Feeling better. Denies shortness of breath. No complaints.
Objective Data
-
Labs:
Laboratory Results
12/20/24
03:44
WBC 9.1
Hgb 9.0 L
Hct 31.6 L
Plt Count 180
Sodium 145
Potassium 3.7
Chloride 92 L
Carbon Dioxide 45 H
BUN 33 H
Creatinine 0.7
Glucose 106 H
Calcium 8.9
Vital Signs:
Vital Signs
Temp Pulse Resp BP Pulse Ox
98.2 F 70 18 125/60 98
12/20/24 07:24 12/20/24 06:00 12/20/24 06:00 12/20/24 06:00 12/20/24 06:00
I&O
12/19/24 12/20/24 12/21/24
06:59 06:59 06:59
Intake Total 620 / 620 260 / 260
Output Total 3400 / 3400 500 / 500
Balance -2780 / -2780 -240 / -240
Review of Systems
-
History Source: Patient
All other systems: Reviewed and negative
[2024-12-20] MEDS: DUONEB 3 ML INH ×4 (08:00→19:30)
[2024-12-20] MEDS: LIPITOR 20 MG PO (09:01)
[2024-12-20] MEDS: LOPRESSOR 50 MG PO ×2 (09:01→20:28)
[2024-12-20] MEDS: PACERONE 400 MG PO ×3 (09:01→21:29)
[2024-12-20] MEDS: VIBRAMYCIN 100 MG PO ×2 (09:01→20:29)
[2024-12-20] MEDS: LASIX 80 MG IV ×2 (09:02→16:49)
[2024-12-20] MEDS: KCL 20 MEQ PO (09:02)
[2024-12-20] MEDS: ELIQUIS 5 MG PO ×2 (09:02→20:29)
[2024-12-20] MEDS: ASPIR LOW (ENTERIC COATED) 81 MG PO (09:02)
[2024-12-20] MEDS: NICODERM TRANSDERMAL TRANSDERM ×2 (09:03→09:12)
[2024-12-20] MEDS: DESENEX/MITRAZOL/ZEASORB 1 APPLIC TOPICAL ×2 (09:03→20:24)
--- NOTE | 2024-12-20 09:51 | W.PN.CARDCBS ---
Today's Communication / Plan
-
Continue IV diuresis, monitor intake and output/daily weights
Rate control with metoprolol, amiodarone with Eliquis for stroke risk reduction
Impression / Plan
-
Primary Rn Sane: Dr. Guevara of [facility]
Assessment:
SOB, improving, off BiPAP on nasal cannula
Atrial flutter with RVR, improved
Acute HFpEF, improving
Acute on chronic hypoxic/hypercapnic respiratory failure on bipap, improved
Elevated troponin, suspected non ischemic myocardial injury
Admission to [facility] 12/2024 for new A-fib and CHF
Hypertension
Hyperlipidemia
Thyroid nodule status post thyroidectomy
Resultant hypothyroidism
AAA
Ongoing tobacco use
Obesity
MARLEY
Forgetfulness
DNR CODE STATUS
ECHO 12/18/24: Mild concentric LVH, EF 70 to 75%, normal RV, trace TR PASP 30 to 35 mmHg
Plan:
- Patient with recent admission to [facility] for new A-fib and heart failure now presents to [facility] less than 24 hours after discharge with shortness of breath. Found to be in a flutter with RVR and acute heart failure.
- Records from [facility] requested for our review. Also requested records from Dr. Guevara's office
- proBNP 1989. CXR report pending but by my review appears to have pulm edema. Continue diuresis with IV Lasix 80 mg twice daily. Creatinine stable at 0.6. Had been discharged on p.o. Lasix 40 mg twice daily. Dry weight unknown
- CHF education
- Wean supplemental oxygen as able
- Check echo
- Continue Lopressor. Discussed with patient bedside, Tolerating amiodarone for rate/rhythm control. Holding outpatient Cardizem for now, however could consider resuming if HR elevated. follow QTc by EKG
- Continue Eliquis
- Pending clinical course could consider for SAMMI/cardioversion prior to discharge
- TSH 8 with compensated free T4. Defer adjustment in Synthroid dosing to primary service
- with mild trop elevation, 0.037. no CP. trend to peak. suspected nonischemic myocardial injury
- tobacco cessation encouraged
- d/w nursing
Progress Note - Rn Sane
Subjective
Date of Service: December 20, 2024
Patient seen and examined this morning. No acute events overnight. Patient resting comfortably in bed reporting improvement in breathing. Still notes mild shortness of breath and lower extremity swelling. No chest pain, palpitations, weakness.
-240 cc over 24 hours with 2 incontinent urine.
Objective
Labs:
12/20/24 03:44
12/20/24 03:44
Labs
Hgb 9.0 g/dL (12.0-16.0) L 12/20/24 03:44
Hct 31.6 % (37.0-47.0) L 12/20/24 03:44
Plt Count 180 10^3/uL (130-400) 12/20/24 03:44
Sodium 145 mmol/L (135-145) 12/20/24 03:44
Potassium 3.7 mmol/L (3.5-5.1) 12/20/24 03:44
BUN 33 mg/dl (7-17) H 12/20/24 03:44
Creatinine 0.7 mg/dL (0.6-1.0) 12/20/24 03:44
Glucose 106 mg/dl (70-99) H 12/20/24 03:44
Troponins
12/18/24 12/18/24 12/18/24
05:10 16:24 23:17
Troponin I 0.036 H* 0.037 H* 0.037 H*
Vital Signs and I&O:
Vital Signs
Temp Pulse Resp BP Pulse Ox
98.2 F 84 16 124/50 97
12/20/24 07:24 12/20/24 09:02 12/20/24 08:08 12/20/24 09:02 12/20/24 08:08
Vital Signs
Temp Pulse Resp BP Pulse Ox
98.2 F 84 16 124/50 97
12/20/24 07:24 12/20/24 09:02 12/20/24 08:08 12/20/24 09:02 12/20/24 08:08
Intake & Output
12/18/24 12/19/24 12/20/24 12/21/24
06:59 06:59 06:59 06:59
Intake Total 620 / 620 260 / 260
Output Total 3400 / 3400 500 / 500
Balance -2780 / -2780 -240 / -240
Physical Exam
Physical Exam
GENERAL: no acute distress, obese; on BiPAP
EYE: sclera anicteric
NECK: Supple, no JVD appreciated, no carotid bruit appreciated
ENT: normal nose, moist mucosal membranes
CARDIAC: Irregularly irregular, +S1/S2, no murmur, rubs, or gallops
CHEST/PULMONARY: Normal effort, clear breath sounds
ABDOMEN: Soft, without focal tenderness or distention
NEUROLOGICAL: Alert and oriented x3
SKIN: Warm and dry, no rash; bilateral lower extremities 2+ pitting edema
PSYCH: Normal and appropriate interaction.
Telemetry demonstrates atrial flutter with variable AV block
--- NOTE | 2024-12-20 17:40 | PTCARENOTE ---
Patient's bp has been running on the soft side. Last blood pressure 99/45. MD given permission to give pm lasix via [facility].
[2024-12-21] VITALS (8 sets, daily range): BP systolic 85–115; BP diastolic 44–57; PULSE 2–80; BMI 51.1
[2024-12-21] MEDS: SYNTHROID 175 MCG PO (05:50)
[2024-12-21 07:10] LABS: Hematocrit 30.1 % (37.0-47.0); Hemoglobin 8.5 g/dL (12.0-16.0); Mean Corp Hgb Conc. 28.2 g/dL (33.0-37.0); Mean Corpuscular Hgb 25.8 pg (27.0-31.0); Mean Corpuscular Volume 91.5 fL (81.0-99.0); Mean Platelet Volume 12.9 fL (7.4-10.4); Platelet Count 162 10^3/uL (130-400); Red Blood Cell Count 3.29 10^6/uL (4.20-5.40)
[2024-12-21] MEDS: DUONEB 3 ML INH ×4 (07:23→19:51)
[2024-12-21 07:34] LABS: Blood Urea Nitrogen 32 mg/dl (7-17); Calcium 8.7 mg/dl (8.4-10.2); Chloride 89 mmol/L (98-107); Estimated Creatinine Clearance 74 ml/min; Glucose 81 mg/dl (70-99); Potassium 3.7 mmol/L (3.5-5.1); Sodium 143 mmol/L (135-145); eGFR > 60.00
[2024-12-21] MEDS: KCL 20 MEQ PO (08:18)
[2024-12-21] MEDS: LASIX 80 MG IV (08:18)
[2024-12-21] MEDS: ELIQUIS 5 MG PO ×2 (08:18→19:45)
[2024-12-21] MEDS: ASPIR LOW (ENTERIC COATED) 81 MG PO (08:18)
[2024-12-21] MEDS: PACERONE 400 MG PO ×3 (08:19→21:11)
[2024-12-21] MEDS: LOPRESSOR 50 MG PO ×2 (08:19→19:45)
[2024-12-21] MEDS: VIBRAMYCIN 100 MG PO ×2 (08:19→19:45)
[2024-12-21] MEDS: LIPITOR 20 MG PO (08:19)
[2024-12-21] MEDS: NICODERM TRANSDERMAL TRANSDERM (08:20)
[2024-12-21 08:38] LABS: % Eosinophils 1.1 % (0-6); % Immature Granulocytes 0.5 % (0-0.5); % Lymphocytes 16.2 % (20.5-51.1); % Monocytes 15.8 % (1.7-9.3); % Neutrophils 65.4 % (42.2-75.2); Absolute Basophils 0.1 10^3/uL (0-0.2); Absolute Eosinophils 0.1 10^3/uL (0-0.7); Absolute Lymphocytes 1.3 10^3/uL (1.2-3.4); Absolute Monocytes 1.3 10^3/uL (0.1-0.6); Absolute Neutrophils 5.3 10^3/uL (1.4-6.5); Nucleated Red Blood Cells % 0 %
--- NOTE | 2024-12-21 08:46 | W.PN.HOSP.TC ---
Today's Communication/Plan
-
See plan
Assessment / Plan
Assessment / Plan
Physical Exam
Gen-awake, alert, NAD, BiPAP mask
HEENT-NC, AT, anicteric, clear oral mm
Neck-supple
CV-irregular, no M, +S1/S2
Lungs-CTAB
Abd-soft, NT, ND. Positive bowel sounds.
Musculoskeletal-no cyanosis
Skin-warm and dry
Neuro-grossly non-focal
Psych-calm, cooperative
Assessment/Plan
#Acute on chronic hypoxic/hypercapnic respiratory failure -suspect multifactorial etiology including underlying obesity hypoventilation, MARLEY, pulmonary edema from heart failure, bronchitis, etc.
Oxygenation adequate on 4 L nasal cannula. ABG noted, PCO2 75, PO2 66, bicarb 52, pH 7.4. Suspect chronic hypercapnia and hypoxia.
Does not normally use oxygen at home. Was using CPAP at home for the past 7 months.
Recently hospitalized at [facility] ~7 days prior to presentation, discharged ~2 days prior to presentation, with transition to BiPAP. Discharged to [facility]. Subsequently admitted to our hospital for hypoxia.
New onset of cough productive of phlegm, yellow and green, ~2 days prior to presentation. Denied fevers or chills. Reportedly did not get antibiotics in outside hospital. Clinically doubt pneumonia.
She is afebrile, WBC count is normal. Continue doxycycline for suspected bronchitis.
Patient denies history of COPD and states that her outpatient ocean biologist worked her up and told her that she does not have COPD despite lifelong smoking.
Continue BiPAP therapy at nighttime and with naps.
#Bilateral Lower Extremity Edema
Doppler ultrasound bilateral lower extremities negative for DVT, does show a right calf soft tissue fluid collection. She is not complaining of any symptoms at that location. Monitor for now.
#Acute on chronic heart failure preserved EF exacerbation -clinically improving on IV Lasix. Echocardiogram shows LVEF 70 to 75%, normal RV size and function, trace tricuspid regurgitation. Continue IV Lasix. Looks grossly volume overloaded. BNP
1989. Cardiology following.
Weight trending down by 6kg so far. I's and O's are negative.
#Acute bronchitis -no evidence of pneumonia clinically. Started on empiric doxycycline and prednisone, now steroids discontinued. Continue inhalers.
#Rapid atrial flutter -now rate controlled. Started on amiodarone by cardiology. Continue metoprolol. Off Cardizem drip. Will resume Eliquis given clinical stability.
#Acute on chronic anemia -component of acute blood loss anemia with heme positive stools, dark stools noted. Suspect acute blood loss anemia exacerbated by chronic anticoagulation with Eliquis. Suspect possible GI bleed. She does have a history
of diverticulosis and diverticular bleeding is a possibility. Hemodynamically stable. Hemoglobin this morning 8.5, not a significant change compared to 24 hours ago. Doubt clinically significant bleeding. Eliquis resumed this hospitalization.
Dr. Amador Discussed with patient.
Hold off on consulting GI as she is in acute heart failure and unlikely she will qualify for endoscopic evaluation, but will eventually need to do so. She states she was scheduled for colonoscopy prior to admission. Her last colonoscopy was 10
years ago, showing diverticular disease.
Troponin elevation - possibly due to acute nonischemic myocardial injury.
Hypernatremia -improved.
Tobacco dependence -cessation advised.
MARLEY -previously on CPAP at home, transitioned to BiPAP on discharge a few days ago from [facility]. Patient states that the mask did not fit her well in the usp which likely contributed to the hypoxic event prompting her admission.
Hypothyroidism -continue levothyroxine. History of thyroidectomy. TSH 8.0, free T40.86. Hold off on making any changes to levothyroxine dose. Need to ensure that she is taking it properly on an empty stomach, first thing in the morning, apart
from food or other medications.
Morbid obesity due to excess calories
DNR/DNI -confirmed with patient and niece.
PT/OT -SNF recommended.
Continue to monitor on telemetry
Anticipated Discharge: > 48 hours
Subjective/Interval History
-
Date of Service: December 21, 2024
Patient was seen and examined. She reported that her shortness of breath is better. She denied any chest pain.
Objective Data
-
Labs:
Laboratory Results
12/21/24
06:43
WBC 8.0
Hgb 8.5 L
Hct 30.1 L
Plt Count 162
Sodium 143
Potassium 3.7
Chloride 89 L
Carbon Dioxide Pending
BUN 32 H
Creatinine 0.8
Glucose 81
Calcium 8.7
Vital Signs:
Vital Signs
Temp Pulse Resp BP Pulse Ox
97.8 F 61 14 95/52 96
12/21/24 03:30 12/21/24 07:26 12/21/24 07:26 12/21/24 03:30 12/21/24 07:26
I&O
12/20/24 12/21/24 12/22/24
06:59 06:59 06:59
Intake Total 260 / 260 120 / 120
Output Total 500 / 500
Balance -240 / -240 120 / 120
[2024-12-21] MEDS: DESENEX/MITRAZOL/ZEASORB 1 APPLIC TOPICAL ×2 (08:54→19:44)
[2024-12-21 09:04] LABS: Normal RBC Morphology No
[2024-12-21 09:10] LABS: Anisocytosis 1+; Hypochromasia 2+; Poikilocytosis Slight
[2024-12-21 09:11] LABS: Ovalocytes Slight
--- NOTE | 2024-12-21 09:53 | WOUNDNOTE ---
CLIFTON MICHAELS NOTE: Confirmed patient is on a [facility] air bed.
[2024-12-21 09:57] LABS: Carbon Dioxide 49 mmol/L (22-30)
--- NOTE | 2024-12-21 12:17 | W.PN.CARDCBS ---
Today's Communication / Plan
-
Cont IV lasix diuresis with lasix 80 mg IV BID. Had been discharged on p.o. Lasix 40 mg twice daily. Dry weight unknown
[facility] [place] [facility] records and [facility]
HF education
Wean supplemental oxygen as able
Echo pending
Continue Eliquis. May consider SAMMI/cv prior to d/c vs as outpt pending clinical course.
TSH 8, Synthroid and management as per primary service.
Cont medical tx of nonMI troponin.
Impression / Plan
-
.
Primary Charge Accounts Audit Clerk: Dr. Guevara of [facility]
Impression:
Atrial flutter with RVR, improved
Acute HFpEF, improving
Acute on chronic hypoxic/hypercapnic respiratory failure on bipap, improved
Elevated troponin, suspected non ischemic myocardial injury
Admission to [facility] 12/2024 for new A-fib and CHF
Hypertension
Hyperlipidemia
Thyroid nodule status post thyroidectomy
Resultant hypothyroidism
AAA
Ongoing tobacco use
Obesity
MARLEY
Forgetfulness
DNR CODE STATUS
ECHO 12/18/24: Mild concentric LVH, EF 70 to 75%, normal RV, trace TR PASP 30 to 35 mmHg
Plan:
HPI: Patient with recent admission to [facility] for new A-fib and heart failure now presents to [facility] less than 24 hours after discharge with shortness of breath. Found to be in a flutter with RVR and acute heart failure. - proBNP 1989
Cont IV lasix diuresis with lasix 80 mg IV BID. Had been discharged on p.o. Lasix 40 mg twice daily. Dry weight unknown
[facility] [place] records and [facility]
HF education
Wean supplemental oxygen as able
Echo pending
Continue Eliquis. May consider SAMMI/cv prior to d/c vs as outpt pending clinical course.
TSH 8, Synthroid and management as per primary service.
Cont medical tx of nonMI troponin.
Tobacco cessation has been encouraged
Discussed with nursing
Progress Note - Charge Accounts Audit Clerk
Subjective
Date of Service: December 21, 2024
Pt seen and examined. No complaints. No chest pain or shortness of breath.
Objective
Labs:
12/21/24 06:43
12/21/24 06:43
Labs
Hgb 8.5 g/dL (12.0-16.0) L 12/21/24 06:43
Hct 30.1 % (37.0-47.0) L 12/21/24 06:43
Plt Count 162 10^3/uL (130-400) 12/21/24 06:43
Sodium 143 mmol/L (135-145) 12/21/24 06:43
Potassium 3.7 mmol/L (3.5-5.1) 12/21/24 06:43
BUN 32 mg/dl (7-17) H 12/21/24 06:43
Creatinine 0.8 mg/dL (0.6-1.0) 12/21/24 06:43
Glucose 81 mg/dl (70-99) 12/21/24 06:43
Troponins
12/18/24 12/18/24
16:24 23:17
Troponin I 0.037 H* 0.037 H*
Vital Signs and I&O:
Vital Signs
Temp Pulse Resp BP Pulse Ox
97.8 F 77 16 115/57 99
12/21/24 07:00 12/21/24 11:24 12/21/24 11:24 12/21/24 07:00 12/21/24 11:24
Vital Signs
Temp Pulse Resp BP Pulse Ox
97.8 F 77 16 115/57 99
12/21/24 07:00 12/21/24 11:24 12/21/24 11:24 12/21/24 07:00 12/21/24 11:24
Intake & Output
12/19/24 12/20/24 12/21/24 12/22/24
06:59 06:59 06:59 06:59
Intake Total 620 / 620 260 / 260 120 / 120
Output Total 3400 / 3400 500 / 500
Balance -2780 / -2780 -240 / -240 120 / 120
Physical Exam
Physical Exam
General: No acute distress, AAOX3
Neck: Negative JVD
Heart: Irregularly irregular, Negative S3 positive S1/S2, Negative S4, No murmur
Lungs: CTA b/l, negative wheezes/rales/rhonchi
Abd: morbid obesity. Positive BS, NT/ND, neg rebound/rigidity/guarding
Ext: Negative cyanosis/clubbing/edema
Neuro: nonfocal
[2024-12-21] MEDS: LASIX IV (16:14)
--- NOTE | 2024-12-21 16:18 | PTCARENOTE ---
Pt's B/P 85/[address] Borjas and Nichole Unger PA made aware. Lasix 80mg IV held this afternoon. Okay to give Pacerone 400mg po as ordered.
[2024-12-22] VITALS (8 sets, daily range): BP systolic 101–157; BP diastolic 53–88; PULSE 2–75; O2SAT 93; BMI 50.2
[2024-12-22] MEDS: SYNTHROID 175 MCG PO (05:09)
[2024-12-22 06:32] LABS: Hematocrit 28.3 % (37.0-47.0); Hemoglobin 8.2 g/dL (12.0-16.0); Mean Corpuscular Hgb 26.1 pg (27.0-31.0); Mean Corpuscular Volume 90.1 fL (81.0-99.0); Mean Platelet Volume 12.7 fL (7.4-10.4); Platelet Count 157 10^3/uL (130-400); Red Blood Cell Count 3.14 10^6/uL (4.20-5.40); Red Cell Dist. Width 21.8 % (11.5-14.5); White Blood Cell Count 9.1 10^3/uL (4.8-10.8)
[2024-12-22 06:56] LABS: Blood Urea Nitrogen 29 mg/dl (7-17); Calcium 8.9 mg/dl (8.4-10.2); Chloride 87 mmol/L (98-107); Estimated Creatinine Clearance 83 ml/min; Glucose 79 mg/dl (70-99); Magnesium 1.6 mg/dl (1.6-2.3); Potassium 3.6 mmol/L (3.5-5.1); Sodium 141 mmol/L (135-145); eGFR > 60.00
[2024-12-22 07:09] LABS: Carbon Dioxide 54 mmol/L (22-30)
[2024-12-22] MEDS: DUONEB 3 ML INH ×4 (07:29→19:39)
--- NOTE | 2024-12-22 09:03 | PN.CDI ---
CDI
- -
CDI:
Physician Documentation Request
Admit Date: 12/18/24 08:02
Dear Doctor Noe,
Please review the following and provide your response in the progress notes.
Clinical Indicators:
Pt admitted with Acute Diastolic CHF/ Acute on Chronic Hypercapnic/Hypoxic Respiratory Failure
Documented per [facility] note 12/18 @ 1347,' ...All wounds POA and all details in worklist. Patient has had recent falls and has abrasions on right flank and right shoulder. Sacral area (folded to create a cleft) is likely a stage 2 caused by pressure
of skin fold. Left hip with dry, healed abrasion. Left heel stage 1 PI....'
Physician documentation of the type and location of wounds is required for compliant documentation. Based on the above clinical findings and your assessment, please provide the following in your progress note:
1. Location of the ulcer/wound, including laterality.
2. Type (etiology) of ulcer/wound:
- Pressure (decubitus) ulcer
- Non-pressure ulcer
- Other ( please specify)
Use of terms such as suspected, likely, concern for, or probable (associated with a specific diagnosis that is being evaluated, monitored, or treated as if it exists) are acceptable and can be coded in the inpatient setting, when documented at the
time of discharge.
Thank you,
Veronika Head RN
CDI Specialist
[place]
Please use your independent medical judgment in providing your response.
*Source: National Pressure Ulcer Advisory Panel (NPUAP)
[2024-12-22] MEDS: LIPITOR 20 MG PO (09:04)
[2024-12-22] MEDS: PACERONE 400 MG PO ×2 (09:04→15:52)
[2024-12-22] MEDS: DESENEX/MITRAZOL/ZEASORB 1 APPLIC TOPICAL ×2 (09:04→19:51)
[2024-12-22] MEDS: ASPIR LOW (ENTERIC COATED) 81 MG PO (09:04)
[2024-12-22] MEDS: KCL 20 MEQ PO (09:04)
[2024-12-22] MEDS: LOPRESSOR 50 MG PO ×2 (09:04→19:55)
[2024-12-22] MEDS: VIBRAMYCIN 100 MG PO ×2 (09:04→19:51)
[2024-12-22] MEDS: ELIQUIS 5 MG PO ×2 (09:04→19:50)
[2024-12-22] MEDS: LASIX 80 MG IV ×2 (09:05→15:53)
[2024-12-22] MEDS: NICODERM TRANSDERMAL TRANSDERM (09:06)
--- NOTE | 2024-12-22 12:14 | CM ---
Chart reviewed. Discussed w/ PT, patient remains appropriate for skilled rehab. Patient admitted from [facility] where she was getting rehab.
Spoke w/ patient bedside about if she would like to return to [facility] or explore another SNF at d/c. 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
d/c. CM will inquire about bed availability at [facility] closer to d/c, referral placed in [facility].
Plan: [facility] SNF when stable
--- NOTE | 2024-12-22 13:00 | W.PN.CARDCBS ---
Addendum entered and electronically signed by Braxton Borjas DO 12/22/24 16:25:
I saw and examined the patient.
The Cutter Apprentice Hand's note was reviewed and I agree with the note.
Comment:
Plan:
Cont IV diuresis. Weight continues to come down.
Continue pulmonary toilet
Wean O2 as able.
Lower amiodarone to 200 mg BID for 2 weeks and then 200 mg once daily. Remains in rate controlled atrial flutter.
Monitor QTc on Amiodarone.
Consider outpatient SAMMI/cardioversion if her hemoglobin remained stable.
H/H has been slowly dropping. Continue to follow H/H
Outpatient follow-up with ATC.
Original Note:
Today's Communication / Plan
-
-replete K
-cont diuresis
-check EKG /QTc on Amio
-PT/OOB
Impression / Plan
-
Primary Vibration Engineer: Dr. Guevara of [facility], last visit 12/2023
Impression:
Atrial flutter with RVR, improved
Acute HFpEF, improving
Acute on chronic hypoxic/hypercapnic respiratory failure on bipap, improved
Elevated troponin, suspected non ischemic myocardial injury
Admission to [facility] 12/2024 for new A-fib and CHF
Hypertension
Hyperlipidemia
Thyroid nodule status post thyroidectomy
Resultant hypothyroidism
AAA
Ongoing tobacco use
Obesity
MARLEY
Forgetfulness
DNR CODE STATUS
ECHO 12/18/24: Mild concentric LVH, EF 70 to 75%, normal RV, trace TR PASP 30 to 35 mmHg
Plan:
afib
-new diagnosis during earlier December 2024 admission to [facility] (also w/ new HF)
-started Eliquis, Cardizem, metoprolol at [facility]
-upon presentation to [facility] on 12/18/2024, was in atrial flutter with RVR HRs 120s (had been discharged to rehab facility from [facility] only 24 hr prior to presentation to [facility]).
-started Amiodarone 12/18/2024 for rate control, started on Amio 400 mg TID. Today 12/22/2024 Day 5 of med.
-outpt Cardizem on hold
-remains in atrial flutter, personally reviewed telem, HRs 70-80s
-will repeat EKG today to assess QTc on Amio-I ordered
-continue Eliquis, on appropriate dose for age, wt renal fxn, creat 0.7 12/22/2024. One dose of Eliquis held 12/19/2024 due to decreasing Hgb, but resumed
-Hgb trending down over course of admission. Was 10.3 12/18/2024, 8.2 12/22/2024. She is not thought to have a clinically significant bleed however hemoglobin continues to trend down, would consider GI consult.
-TSH 8.05, free T4 0.86 on admission 12/18/2024, mgmt per primary team, monitor closely on Amio
-could consider SAMMI/CV prior to discharge however would want resp status maximized prior to anesthesia/SAMMI.
-denies palps
acute HFpEF
-HF new diagnosis as of 12/2024 admission to [facility]
-proBNP 1989 on admit 12/18/2024
-has been on IV lasix 80 mg IV BID. Outpt dose COLUMNIST to was Lasix 40 mg twice daily. Dry weight unknown
-wt down 19 lbs since admission. BUN/creat stable 29/0.7
-K 3.6 - on KCl 20 meq daily, will order additional 40meq now -ordered
-Echo with EF 70-75%, nl RV
-HF education
-smoking cessation
-down to 2L of O2 12/18/2024, was on 4L , wean as able, not on O2 in outpt setting
-LE U/S negative for DVT
Wean supplemental oxygen as able
-PT
Troponin elevation
-peak troponin 0.037
-no chest pain
-Thought to be nonischemic myocardial injury
TSH 8, Synthroid and management as per primary service.
Cont medical tx of nonMI troponin.
Tobacco cessation has been encouraged
Discussed with nursing
Progress Note - Vibration Engineer
Subjective
Date of Service: December 22, 2024
-
Objective
Labs:
12/22/24 06:10
12/22/24 06:10
Labs
Hgb 8.2 g/dL (12.0-16.0) L 12/22/24 06:10
Hct 28.3 % (37.0-47.0) L 12/22/24 06:10
Plt Count 157 10^3/uL (130-400) 12/22/24 06:10
Sodium 141 mmol/L (135-145) 12/22/24 06:10
Potassium 3.6 mmol/L (3.5-5.1) 12/22/24 06:10
BUN 29 mg/dl (7-17) H 12/22/24 06:10
Creatinine 0.7 mg/dL (0.6-1.0) 12/22/24 06:10
Glucose 79 mg/dl (70-99) 12/22/24 06:10
Vital Signs and I&O:
Vital Signs
Temp Pulse Resp BP Pulse Ox
97.9 F 82 16 135/68 93
12/22/24 11:00 12/22/24 11:35 12/22/24 11:35 12/22/24 11:00 12/22/24 11:35
Vital Signs
Temp Pulse Resp BP Pulse Ox
97.9 F 82 16 135/68 93
12/22/24 11:00 12/22/24 11:35 12/22/24 11:35 12/22/24 11:00 12/22/24 11:35
Intake & Output
12/20/24 12/21/24 12/22/24 12/23/24
06:59 06:59 06:59 06:59
Intake Total 260 / 260 120 / 120 240 / 240
Output Total 500 / 500 300 / 300
Balance -240 / -240 120 / 120 -60 / -60
Physical Exam
Physical Exam
GEN: No distress, awake, Ox3
HEENT: supple, anicteric, mmm
LUNGS:insp wheezing SAM
CV: irreg, irreg
ABD: soft, BS+, NT/ND
EXT: trace B/L LE edema
NEURO: Gross non-focal
SKIN: No rash
[2024-12-22] MEDS: KCL 40 MEQ PO (13:50)
--- NOTE | 2024-12-22 14:31 | W.PN.HOSP.TC ---
Today's Communication/Plan
-
Continue IV Lasix
Assessment / Plan
Assessment / Plan
Physical Exam
Gen-awake, alert, NAD, BiPAP mask
HEENT-NC, AT, anicteric, clear oral mm
Neck-supple
CV-irregular, no M, +S1/S2
Lungs-Scattered wheezing
Abd-soft, NT, ND. Positive bowel sounds.
Musculoskeletal-no cyanosis
Skin-warm and dry
Neuro-grossly non-focal
Psych-calm, cooperative
Assessment/Plan
#Acute on chronic hypoxic/hypercapnic respiratory failure -suspect multifactorial etiology including underlying obesity hypoventilation, MARLEY, pulmonary edema from heart failure, bronchitis, etc.
Oxygenation adequate on 2 L nasal cannula (previously was on 4 L NC).
ABG noted, PCO2 75, PO2 66, bicarb 52, pH 7.4. Suspect chronic hypercapnia and hypoxia.
Does not normally use oxygen at home. Was using CPAP at home for the past 7 months.
Recently hospitalized at [facility] ~7 days prior to presentation, discharged ~2 days prior to presentation, with transition to BiPAP. Discharged to [facility]. Subsequently admitted to our hospital for hypoxia.
New onset of cough productive of phlegm, yellow and green, ~2 days prior to presentation. Denied fevers or chills. Reportedly did not get antibiotics in outside hospital. Clinically doubt pneumonia.
She is afebrile, WBC count is normal. Continue doxycycline for suspected bronchitis.
Patient denies history of COPD and states that her outpatient erosion control specialist worked her up and told her that she does not have COPD despite lifelong smoking.
Continue BiPAP therapy at nighttime and with naps.
#Bilateral Lower Extremity Edema
Doppler ultrasound bilateral lower extremities negative for DVT, does show a right calf soft tissue fluid collection. She is not complaining of any symptoms at that location. Monitor for now.
#Acute on chronic heart failure preserved EF exacerbation
-clinically improving on IV Lasix. Echocardiogram shows LVEF 70 to 75%, normal RV size and function, trace tricuspid regurgitation. Continue IV Lasix. Looks grossly volume overloaded. BNP 1989. Cardiology following.
Weight trending down by 6kg so far. I's and O's are negative.
#Acute bronchitis
- no evidence of pneumonia clinically. Started on empiric doxycycline and prednisone, now steroids discontinued. Continue Doxycycline through 12/24/24. Continue inhalers.
#Rapid atrial flutter
- now rate controlled. Started on amiodarone by cardiology. Continue metoprolol. Off Cardizem drip. Continue Eliquis.
#Acute on chronic anemia
-component of acute blood loss anemia with heme positive stools, dark stools noted. Suspect acute blood loss anemia exacerbated by chronic anticoagulation with Eliquis. Suspect possible GI bleed. She does have a history of diverticulosis and
diverticular bleeding is a possibility. Hemodynamically stable. Hemoglobin this morning 8.2, not a significant change compared to 24 hours ago. Doubt clinically significant bleeding. Eliquis resumed this hospitalization. Dr. Amador Discussed
with patient.
Hold off on consulting GI as she is in acute heart failure and unlikely she will qualify for endoscopic evaluation, but will eventually need to do so. She states she was scheduled for colonoscopy prior to admission. Her last colonoscopy was 10
years ago, showing diverticular disease.
Troponin elevation
- possibly due to acute nonischemic myocardial injury.
Hypernatremia
- Resolved
Tobacco dependence -cessation advised.
MARLEY
-previously on CPAP at home, transitioned to BiPAP on discharge a few days ago from [facility]. Patient states that the mask did not fit her well in the [place] [facility] which likely contributed to the hypoxic event prompting her admission.
Hypothyroidism
-continue levothyroxine. History of thyroidectomy. TSH 8.0, free T4 0.86. Hold off on making any changes to levothyroxine dose. Need to ensure that she is taking it properly on an empty stomach, first thing in the morning, apart from food or
other medications. Recheck TFTs outpatient.
Morbid obesity due to excess calories
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
Left hip with dry, healed abrasion MOLD STAMPER AND REPAIRER
Left heel stage 1 Pressure Injury MOLD STAMPER AND REPAIRER
-Continue wound care
DNR/DNI -confirmed with patient and niece.
PT/OT -SNF recommended.
Continue to monitor on telemetry
Anticipated Discharge: 24 - 48 hours
Subjective/Interval History
-
Date of Service: December 22, 2024
Patient was seen and examined. She denied any new chest pain or shortness of breath.
Objective Data
-
Labs:
Laboratory Results
12/22/24
06:10
WBC 9.1
Hgb 8.2 L
Hct 28.3 L
Plt Count 157
Sodium 141
Potassium 3.6
Chloride 87 L
Carbon Dioxide 54 H
BUN 29 H
Creatinine 0.7
Glucose 79
Calcium 8.9
Vital Signs:
Vital Signs
Temp Pulse Resp BP Pulse Ox
97.9 F 82 16 135/68 93
12/22/24 11:00 12/22/24 11:35 12/22/24 11:35 12/22/24 11:00 12/22/24 11:35
I&O
12/21/24 12/22/24 12/23/24
06:59 06:59 06:59
Intake Total 120 / 120 240 / 240
Output Total 300 / 300
Balance 120 / 120 -60 / -60
[2024-12-22] MEDS: PACERONE 200 MG PO (19:51)
[2024-12-23] VITALS (9 sets, daily range): BP systolic 93–118; BP diastolic 57–68; PULSE 2–109; O2SAT 91; BMI 49.4
--- NOTE | 2024-12-23 04:18 | DOWNTIME ---
Addendum entered by Charla Kwok RN 12/23/24 14:21:
Correction: Downtime was 12/23/2024 from 0100 to 12/23/2024 at 0415
Original Note:
There was a [employer] Client Purchasing And Claims Supervisor Downtime on 12/22/2024 from 0100 to 12/23/2024 at 0415. Downtime documentation of patient's care, including medication administrations, has been reconciled in the electronic record per guidelines. Refer to the
patient's paper chart under the miscellaneous tab to see printed paper medication records and downtime forms.
[2024-12-23] MEDS: SYNTHROID 175 MCG PO (06:12)
[2024-12-23] MEDS: DUONEB 3 ML INH ×3 (07:54→19:51)
[2024-12-23 08:09] LABS: Hematocrit 31.1 % (37.0-47.0); Hemoglobin 8.9 g/dL (12.0-16.0); Mean Corp Hgb Conc. 28.6 g/dL (33.0-37.0); Mean Corpuscular Hgb 25.8 pg (27.0-31.0); Mean Corpuscular Volume 90.1 fL (81.0-99.0); Mean Platelet Volume 13.4 fL (7.4-10.4); Platelet Count 171 10^3/uL (130-400); Red Blood Cell Count 3.45 10^6/uL (4.20-5.40); Red Cell Dist. Width 22.1 % (11.5-14.5); White Blood Cell Count 9.7 10^3/uL (4.8-10.8)
[2024-12-23 08:26] LABS: Blood Urea Nitrogen 26 mg/dl (7-17); Chloride 87 mmol/L (98-107); Estimated Creatinine Clearance 72 ml/min; Glucose 72 mg/dl (70-99); Magnesium 1.7 mg/dl (1.6-2.3); Potassium 3.8 mmol/L (3.5-5.1); Sodium 141 mmol/L (135-145); eGFR > 60.00
[2024-12-23 08:44] LABS: Carbon Dioxide 55 mmol/L (22-30)
[2024-12-23] MEDS: ASPIR LOW (ENTERIC COATED) 81 MG PO (09:18)
[2024-12-23] MEDS: LIPITOR 20 MG PO (09:18)
[2024-12-23] MEDS: VIBRAMYCIN 100 MG PO ×2 (09:18→19:43)
[2024-12-23] MEDS: PACERONE 200 MG PO ×2 (09:18→19:44)
[2024-12-23] MEDS: KCL 20 MEQ PO (09:18)
[2024-12-23] MEDS: ELIQUIS 5 MG PO ×2 (09:18→19:43)
[2024-12-23] MEDS: DESENEX/MITRAZOL/ZEASORB 1 APPLIC TOPICAL ×2 (09:18→19:48)
[2024-12-23] MEDS: LASIX 80 MG IV ×2 (09:19→17:30)
[2024-12-23] MEDS: NICODERM TRANSDERMAL TRANSDERM (09:19)
[2024-12-23] MEDS: LOPRESSOR PO (09:19)
--- NOTE | 2024-12-23 09:24 | W.PN.CARDCBS ---
Addendum entered and electronically signed by Zi Castaneda MD 12/23/24 15:05:
I saw and examined the patient.
The Voucher Clerk's note was reviewed and I agree with the note.
Comment: Briefly, 79-year-old woman past medical history of heart failure preserved ejection fraction and paroxysmal atrial fibrillation presenting with hypoxic respiratory failure in part due to decompensated heart failure.
Has been diuresing well with IV Lasix twice daily
Weight is coming down and creatinine remained stable
Difficult volume assessment given body habitus, would continue with IV diuretics for now and wean oxygen as able
Has been in rate controlled atrial flutter here
Continue metoprolol and amiodarone, goal heart rate less than 110 bpm
Would consider outpatient cardioversion after she has been reliably anticoagulated for 3 to 4 weeks
Rest per Cindy Eattorri
Original Note:
Today's Communication / Plan
-
Cont amio BID for now
Change Lopressor to Toprol XL
Impression / Plan
-
Primary Juice Standardizer: Dr. Guevara of [facility], last visit 12/2023
Impression:
Admitted with acute on chronic hypoxic/hypercapnic respiratory failure 12/18/24
Typical atrial flutter with RVR on admission
Paroxysmal Afib
Chronic Eliquis OAC
Acute HFpEF
Acute on chronic hypoxic/hypercapnic respiratory failure on BiPAP
Elevated troponin, suspected non ischemic myocardial injury
Admission to [facility] for new A-fib and CHF, d/c'd to [facility] 12/16/2024
Hypertension
Hyperlipidemia
Thyroid nodule status post thyroidectomy
Resultant hypothyroidism
AAA
Ongoing tobacco use
Obesity
MARLEY
Forgetfulness
DNR CODE STATUS
ECHO 12/18/24: Mild concentric LVH, EF 70 to 75%, normal RV, trace TR PASP 30 to 35 mmHg
Plan:
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 Then sent to [facility] for respiratory failure and new atrial
flutter and CHF on admission.
-Weight is down 20 lbs this admission if bed scale weights are correct. Diuresed with Lasix 80 mg IV BID. Patient was taking Lasix 40 mg PO BID prior to admission.
-EF 70-75% by echo this admission.
-Outpatient dose of Lopressor 50 mg BID was continued this admission, will change to Toprol XL 50 mg BID
-Patient was not taking EDMUNDO/ARB/ARNI/aldosterone antagonist prior to admission. Cannot add as of 12/23/24 due to hypotension, BP 93/58 on VS reviewed by me
-Remains hypoxic on 2 L NC. Patient was not using supplemental oxygen prior to admission
-Patient with new Afib at [facility] last week and then atrial flutter on admission here.
-Outpatient dose of Eliquis 5 mg BID (age 79, Cre 0.8) has been continued. Of note, Eliquis held 12/19/24 for dropping Hgb, but resumed with stable Hgb.
-Amiodarone added for adjunct rate control this admission, patient received 6 gram load as of 12/23/24 AM. Currently ordered amiodarone 200 mg BID. Plan is for amiodarone 200 mg BID until 01/05/25 and then transition to amiodarone 200 mg daily
thereafter
-Possible eventual outpatient CV pending respiratory status
-QTc 418 ms by ECG 12/22/24, reviewed by me. Recheck ECG in AM
-Tele reviewed, by me, HRs controlled. No palpitations.
-Outpatient dose of Cardizem CD 360 mg daily stopped this admission
-Peak troponin 0.037 managed as a nonischemic myocardial injury Troponin elevation
Progress Note - Juice Standardizer
Subjective
Date of Service: December 23, 2024
Feels well, no palpitations
Objective
Labs:
12/23/24 06:49
12/23/24 06:49
Labs
Hgb 8.9 g/dL (12.0-16.0) L 12/23/24 06:49
Hct 31.1 % (37.0-47.0) L 12/23/24 06:49
Plt Count 171 10^3/uL (130-400) 12/23/24 06:49
Sodium 141 mmol/L (135-145) 12/23/24 06:49
Potassium 3.8 mmol/L (3.5-5.1) 12/23/24 06:49
BUN 26 mg/dl (7-17) H 12/23/24 06:49
Creatinine 0.8 mg/dL (0.6-1.0) 12/23/24 06:49
Glucose 72 mg/dl (70-99) 12/23/24 06:49
Vital Signs and I&O:
Vital Signs
Temp Pulse Resp BP Pulse Ox
97.7 F 102 20 95/64 95
12/23/24 07:00 12/23/24 07:00 12/23/24 07:00 12/23/24 07:00 12/23/24 07:00
Vital Signs
Temp Pulse Resp BP Pulse Ox
97.7 F 102 20 95/64 95
12/23/24 07:00 12/23/24 07:00 12/23/24 07:00 12/23/24 07:00 12/23/24 07:00
Intake & Output
12/21/24 12/22/24 12/23/24 12/24/24
06:59 06:59 06:59 06:59
Intake Total 120 / 120 240 / 240 240 / 240
Output Total 300 / 300 1550 / 1550
Balance 120 / 120 -60 / -60 -1310 / -1310
Physical Exam
Physical Exam
GEN: AAOx3
HEENT: EOMI
LUNGS: 2 L NC. No audible wheeze
CV: Atrial flutter on tele
EXT: Trace LE edema
NEURO: Gross non-focal
SKIN: No rash
--- NOTE | 2024-12-23 10:44 | W.HF.CON ---
Heart Failure
- LV Function
Left ventricular function study result: LV Ejection fraction >/= 50%
Ejection Fraction Percentage: 70-75
- ARNI
Patient already on ARNI: No
Heart Failure ARNI Not Indicated: LV Ejection Fraction >/= 40%
- ACEI/ARB
Patient already on ACEI/ARB: No
Heart Failure ACEI/ARB Not Indicated: LV Ejection Fraction > 40%
- Beta Linda
Patient already on Evidence Based Beta Linda: No
Heart Failure Evidence Based Beta Linda Not Indicated: LV Ejection Fraction > 40%
- Mineralocorticord Receptor Antagonist
Patient already on MRA: No
Heart Failure MRA Not Indicated: LV Ejection Fraction > 40%
- SGLT-2 Inhibitor
Patient already on SGLT-2 Inhibitor: No
Heart Failure SGLT-2 Inhibitor Contraindication: Patient Refusal (sacral pressure wound)
- Afib Anticoagulation
Patient already on Anticoagulation for Afib: Yes
- NYHA CHF Classification
NYHA CHF Classification Level: Class III - Symptoms w/ min exertion, interferes w/ nml daily activity
- ACC/AHA Stage
ACC/AHA Stage: Stage C: Symptomatic Heart Failure
[2024-12-23] MEDS: DUONEB INH (11:44)
--- NOTE | 2024-12-23 14:37 | W.PN.HOSP.TC ---
Today's Communication/Plan
-
Continue IV Lasix
Lopressor changed to Toprol XL
See plan
Assessment / Plan
Assessment / Plan
Physical Exam
Gen-awake, alert, NAD
HEENT-NC, AT, anicteric, clear oral mm
Neck-supple
CV-irregular, no M, +S1/S2
Lungs-Decreased breath sounds bilaterally
Abd-soft, NT, ND. Positive bowel sounds.
Musculoskeletal-no cyanosis
Skin-warm and dry
Neuro-grossly non-focal
Psych-calm, cooperative
Assessment/Plan
#Acute on chronic hypoxic/hypercapnic respiratory failure -suspect multifactorial etiology including underlying obesity hypoventilation, MARLEY, pulmonary edema from heart failure, bronchitis, etc.
#Admitted with acute on chronic hypoxic/hypercapnic respiratory failure 12/18/24
Oxygenation adequate on 2 L nasal cannula (previously was on 4 L NC).
ABG noted, PCO2 75, PO2 66, bicarb 52, pH 7.4. 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
Does not normally use oxygen at home. Was using CPAP at home for the past 7 months.
Recently hospitalized at [facility] ~7 days prior to presentation, discharged ~2 days prior to presentation, with transition to BiPAP. Discharged to [facility]. Subsequently admitted to our hospital for hypoxia.
New onset of cough productive of phlegm, yellow and green, ~2 days prior to presentation. Denied fevers or chills. Reportedly did not get antibiotics in outside hospital. Clinically doubt pneumonia.
She is afebrile, WBC count is normal. Continue doxycycline for suspected bronchitis.
Patient denies history of COPD and states that her outpatient manager disaster recovery worked her up and told her that she does not have COPD despite lifelong smoking.
Continue outpatient BiPAP therapy at nighttime and with naps
#Bilateral Lower Extremity Edema
Doppler ultrasound bilateral lower extremities negative for DVT, does show a right calf soft tissue fluid collection. She is not complaining of any symptoms at that location. Monitor for now.
#Acute on chronic heart failure preserved EF exacerbation
-clinically improving on IV Lasix. Echocardiogram shows LVEF 70 to 75%, normal RV size and function, trace tricuspid regurgitation.
-Continue IV Lasix
-Appreciate cardiology
-Can't add EDMUNDO/ARB/ARNI/aldosterone antagonist due to hypotension
#Acute bronchitis
- no evidence of pneumonia clinically. Started on empiric doxycycline and prednisone, now steroids discontinued. Continue Doxycycline through 12/24/24. Continue inhalers.
#Rapid atrial flutter
#Paroxysmal Atrial Fibrillation
#Admission to [facility] for new A-fib and CHF, d/c'd to [facility] 12/16/2024
- Patient had new Afib at [facility] recently and then atrial flutter on admission here.
- now rate controlled. Started on amiodarone by cardiology -- received Amiodarone load; plan is for amiodarone 200 mg BID until 01/05/25 and then transition to amiodarone 200 mg daily thereafter
- Continue metoprolol (outpatient dose of Lopressor 50 mg BID will be changed to Toprol XL 50 mg BID as per cardiology)
- Off Cardizem drip.
- Also, outpatient dose of Cardizem CD 360 mg daily stopped this admission
- Continue Eliquis.
- Will be considered for outpatient cardioversion
- Monitor QTc while on Amiodarone -- QTc okay so far
#Hypertension
- Continue beta brittny and Lasix
#Hyperlipidemia
- Continue Lipitor
#Acute on chronic anemia
-Component of acute blood loss anemia with heme positive stools, dark stools noted. Suspect acute blood loss anemia exacerbated by chronic anticoagulation with Eliquis. Suspect possible GI bleed. She does have a history of diverticulosis and
diverticular bleeding is a possibility. Hemodynamically stable. Hemoglobin this morning 8.9, improved compared to 24 hours ago. Doubt clinically significant bleeding. Eliquis was held but then resumed this hospitalization. Dr. Amador Discussed with
patient.
Hold off on consulting GI as she is in acute heart failure and unlikely she will qualify for endoscopic evaluation, but will eventually need to do so. She states she was scheduled for colonoscopy prior to admission. Her last colonoscopy was 10
years ago, showing diverticular disease.
#Troponin elevation
- possibly due to acute nonischemic myocardial injury.
#Hypernatremia
- Resolved
#Tobacco dependence
-cessation advised.
#MARLEY
-previously on CPAP at home, transitioned to BiPAP on discharge a few days prior to [facility]. Patient states that [facility] which likely contributed to the hypoxic event prompting
her admission.
#Hypothyroidism
-continue levothyroxine. History of thyroidectomy. TSH 8.0, free T4 0.86. Hold off on making any changes to levothyroxine dose. Need to ensure that she is taking it properly on an empty stomach, first thing in the morning, apart from food or
other medications. Recheck TFTs outpatient.
#Morbid obesity due to excess calories
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
#Left hip with dry, healed abrasion VESSEL MANAGER
#Left heel stage 1 Pressure Injury VESSEL MANAGER
-Continue wound care
#Thyroid nodule status post thyroidectomy
#Resultant hypothyroidism
#AAA
DNR/DNI -confirmed with patient and niece.
PT/OT -SNF recommended.
Continue to monitor on telemetry
Anticipated Discharge: > 48 hours
Subjective/Interval History
-
Date of Service: December 23, 2024
Patient was seen and examined. She denied any new symptoms, and she denied any new chest pain or worsening shortness of breath.
Objective Data
-
Labs:
Laboratory Results
12/23/24
06:49
WBC 9.7
Hgb 8.9 L
Hct 31.1 L
Plt Count 171
Sodium 141
Potassium 3.8
Chloride 87 L
Carbon Dioxide 55 H
BUN 26 H
Creatinine 0.8
Glucose 72
Calcium 9.0
Vital Signs:
Vital Signs
Temp Pulse Resp BP Pulse Ox
97.9 F 112 20 93/58 95
12/23/24 11:40 12/23/24 11:40 12/23/24 11:40 12/23/24 11:40 12/23/24 11:40
I&O
12/22/24 12/23/24 12/24/24
06:59 06:59 06:59
Intake Total 240 / 240 240 / 240
Output Total 300 / 300 1550 / 1550
Balance -60 / -60 -1310 / -1310
[2024-12-23] MEDS: TOPROL XL 50 MG PO (19:44)
[2024-12-24] VITALS (10 sets, daily range): BP systolic 81–104; BP diastolic 37–62; PULSE 2–81; O2SAT 94; BMI 48.7
[2024-12-24] MEDS: SYNTHROID 175 MCG PO (04:51)
[2024-12-24] MEDS: DUONEB 3 ML INH ×4 (07:19→19:37)
--- NOTE | 2024-12-24 07:38 | W.PN.CARDCBS ---
Addendum entered and electronically signed by Zi Castaneda MD 12/24/24 13:52:
I saw and examined the patient on morning rounds.
The Security Assistant's note was reviewed and I agree with the note.
Comment: Briefly, 79-year-old woman with past medical history of heart failure with preserved ejection fraction and paroxysmal atrial fibrillation presenting in acute heart failure found to have rapid atrial flutter
Has been diuresing well with IV Lasix twice daily
Weight is coming down and creatinine remaining stable
Difficult volume assessment given body habitus
Would continue with IV Lasix today and hopefully can transition to oral in the next 24 to 48 hours
Wean oxygen as able
Has been in rate controlled atrial flutter here
Continue metoprolol and amiodarone for goal heart rate less than 110 bpm
Would consider outpatient cardioversion after she has been reliably anticoagulated for 3 to 4 weeks
Discussed with nursing
Original Note:
Today's Communication / Plan
-
-cont diuresis
-replete K- will increase KCl to 20 meq BID while on IV Lasix- i ordered
-try to wean off O2
-PT/OT
Impression / Plan
-
Primary Post Doc Fellowship: Dr. Guevara of [facility], last visit 12/2023
Impression:
Admitted with acute on chronic hypoxic/hypercapnic respiratory failure 12/18/24
Typical atrial flutter with RVR on admission
Paroxysmal Afib
Chronic Eliquis OAC
Acute HFpEF
Acute on chronic hypoxic/hypercapnic respiratory failure on BiPAP
Elevated troponin, suspected non ischemic myocardial injury
Admission to [facility] for new A-fib and CHF, d/c'd to [facility] 12/16/2024
Hypertension
Hyperlipidemia
Thyroid nodule status post thyroidectomy
Resultant hypothyroidism
AAA
Ongoing tobacco use
Obesity
MARLEY
Forgetfulness
DNR CODE STATUS
ECHO 12/18/24: Mild concentric LVH, EF 70 to 75%, normal RV, trace TR PASP 30 to 35 mmHg
Plan:
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 Then sent to [facility] for respiratory failure and new atrial
flutter and CHF on admission.
-Weight is down 4 lbs overnight to 266 lbs and 27 lbs this admission if bed scale weights are correct. Diuresed with Lasix 80 mg IV BID. Patient was taking Lasix 40 mg PO BID prior to admission.
-renal fxn stable BUN/creat 22/0.8 12/24. K 3.7 12/24
-will increase KCl from 20 meq daily to BID while on IV Lasix.
-EF 70-75% by echo this admission.
-Outpatient dose of Lopressor 50 mg BID changed to Toprol XL 50 mg BID 12/24/2024
-Patient was not taking EDMUNDO/ARB/ARNI/aldosterone antagonist prior to admission. Cannot add as of 12/24/24 due to hypotension, BP 91/58 on VS reviewed by me
-Remains on O2, decreased to 1L. Desaturated to 84% off O2 with activity with PT. Sat returned to 92% on 1 L NC. Patient was not using supplemental oxygen prior to admission. Cpntinue to try to wean
-Patient with new Afib at [facility] last week and then atrial flutter on admission here.
-Outpatient dose of Eliquis 5 mg BID (age 79, Cre 0.8) has been continued. Of note, Eliquis held 12/19/24 for dropping Hgb, but resumed with stable Hgb.
-Amiodarone added for adjunct rate control this admission, patient received 6 gram load as of 12/23/24 AM. Currently ordered amiodarone 200 mg BID. Plan is for amiodarone 200 mg BID until 01/05/25 and then transition to amiodarone 200 mg daily
thereafter
-Possible eventual outpatient CV pending improvement in respiratory status and after 4 weeks uninterrupted OAC
-QTc 418 ms by ECG 12/22/24
-Tele reviewed, by me, HRs controlled. No palpitations.
-Outpatient dose of Cardizem CD 360 mg daily stopped this admission
-Peak troponin 0.037 managed as a nonischemic myocardial injury Troponin elevation
Progress Note - Post Doc Fellowship
Subjective
Date of Service: December 24, 2024
walked with PT yesterday
no palps
remains on O2
continues to diuresis
Objective
Labs:
Labs
Hgb 8.9 g/dL (12.0-16.0) L 12/23/24 06:49
Hct 31.1 % (37.0-47.0) L 12/23/24 06:49
Plt Count 171 10^3/uL (130-400) 12/23/24 06:49
Sodium 141 mmol/L (135-145) 12/23/24 06:49
Potassium 3.8 mmol/L (3.5-5.1) 12/23/24 06:49
BUN 26 mg/dl (7-17) H 12/23/24 06:49
Creatinine 0.8 mg/dL (0.6-1.0) 12/23/24 06:49
Glucose 72 mg/dl (70-99) 12/23/24 06:49
Vital Signs and I&O:
Vital Signs
Temp Pulse Resp BP Pulse Ox
97.8 F 92 18 94/49 94
12/24/24 03:17 12/24/24 07:23 12/24/24 07:23 12/24/24 03:17 12/24/24 07:23
Vital Signs
Temp Pulse Resp BP Pulse Ox
97.8 F 92 18 94/49 94
12/24/24 03:17 12/24/24 07:23 12/24/24 07:23 12/24/24 03:17 12/24/24 07:23
Intake & Output
12/22/24 12/23/24 12/24/24 12/25/24
06:59 06:59 06:59 06:59
Intake Total 240 / 240 240 / 240 720 / 720
Output Total 300 / 300 1550 / 1550
Balance -60 / -60 -1310 / -1310 720 / 720
Physical Exam
Physical Exam
GEN: No distress, awake, Ox3
HEENT: supple, anicteric, mmm
LUNGS: decreased BS
CV: irreg, irreg
ABD: soft, BS+, NT/ND
EXT: trace B/L LE edema
NEURO: Gross non-focal
SKIN: No rash
[2024-12-24 07:58] LABS: Hematocrit 28.2 % (37.0-47.0); Hemoglobin 8.3 g/dL (12.0-16.0); Mean Corp Hgb Conc. 29.4 g/dL (33.0-37.0); Mean Corpuscular Volume 88.4 fL (81.0-99.0); Mean Platelet Volume 12.7 fL (7.4-10.4); Platelet Count 159 10^3/uL (130-400); Red Blood Cell Count 3.19 10^6/uL (4.20-5.40); Red Cell Dist. Width 22.4 % (11.5-14.5); White Blood Cell Count 9.4 10^3/uL (4.8-10.8)
[2024-12-24] MEDS: VIBRAMYCIN 100 MG PO (08:11)
[2024-12-24] MEDS: TOPROL XL 50 MG PO (08:11)
[2024-12-24] MEDS: ELIQUIS 5 MG PO ×2 (08:11→20:40)
[2024-12-24] MEDS: DESENEX/MITRAZOL/ZEASORB 1 APPLIC TOPICAL ×2 (08:11→20:43)
[2024-12-24 08:12] LABS: Blood Urea Nitrogen 22 mg/dl (7-17); Calcium 8.7 mg/dl (8.4-10.2); Chloride 89 mmol/L (98-107); Estimated Creatinine Clearance 72 ml/min; Glucose 73 mg/dl (70-99); Magnesium 1.7 mg/dl (1.6-2.3); Potassium 3.7 mmol/L (3.5-5.1); Sodium 139 mmol/L (135-145); eGFR > 60.00
[2024-12-24] MEDS: PACERONE 200 MG PO ×2 (08:12→20:40)
[2024-12-24] MEDS: ASPIR LOW (ENTERIC COATED) 81 MG PO (08:12)
[2024-12-24] MEDS: KCL 20 MEQ PO ×2 (08:12→20:40)
[2024-12-24] MEDS: LIPITOR 20 MG PO (08:12)
[2024-12-24] MEDS: LASIX 80 MG IV (08:13)
[2024-12-24] MEDS: NICODERM TRANSDERMAL TRANSDERM (08:15)
[2024-12-24 08:31] LABS: Carbon Dioxide 50 mmol/L (22-30)
--- NOTE | 2024-12-24 15:23 | CM ---
Chart reviewed. Care ongoing
Therapy cont to recommend skilled rehab at d/c. [facility] accepted for patient to return when stable
Wean O2 as able
Plan: [facility]
--- NOTE | 2024-12-24 15:29 | W.PN.HOSP.TC ---
Today's Communication/Plan
-
Continue to monitor on telemetry
Continue IV Lasix
See plan
Assessment / Plan
Assessment / Plan
Physical Exam
Gen-awake, alert, NAD
HEENT-NC, AT, anicteric, clear oral mm
Neck-supple
CV-irregular, +S1/S2
Lungs-Decreased breath sounds bilaterally
Abd-soft, NT, ND. Positive bowel sounds.
Musculoskeletal-no cyanosis
Skin-warm and dry
Neuro-grossly non-focal
Psych-calm, cooperative
Assessment/Plan
#Acute on chronic hypoxic/hypercapnic respiratory failure -suspect multifactorial etiology including underlying obesity hypoventilation, MARLEY, pulmonary edema from heart failure, bronchitis, etc.
#Admitted with acute on chronic hypoxic/hypercapnic respiratory failure 12/18/24
Oxygenation adequate on 1 L nasal cannula (previously was on 4 L NC --> 2 L NC).
ABG noted, PCO2 75, PO2 66, bicarb 52, pH 7.4. 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
Does not normally use oxygen at home. Was using CPAP at home for the past 7 months.
Recently hospitalized at [facility] ~7 days prior to presentation, discharged ~2 days prior to presentation, with transition to BiPAP. Discharged to [facility]. Subsequently admitted to our hospital for hypoxia.
New onset of cough productive of phlegm, yellow and green, ~2 days prior to presentation. Denied fevers or chills. Reportedly did not get antibiotics in outside hospital. Clinically doubt pneumonia.
She is afebrile, WBC count is normal. Completed ~5-day course of doxycycline for suspected bronchitis.
Patient denies history of COPD and states that her outpatient cytology supervisor worked her up and told her that she does not have COPD despite lifelong smoking.
Continue outpatient BiPAP therapy at nighttime and with naps
#Bilateral Lower Extremity Edema
Doppler ultrasound bilateral lower extremities negative for DVT, does show a right calf soft tissue fluid collection. She is not complaining of any symptoms at that location. Monitor for now.
#Acute on chronic heart failure preserved ejection fraction exacerbation
-clinically improving on IV Lasix. Echocardiogram shows LVEF 70 to 75%, normal RV size and function, trace tricuspid regurgitation.
-Continue IV Lasix twice daily
-Appreciate cardiology
-Can't add EDMUNDO/ARB/ARNI/aldosterone antagonist due to hypotension
#Acute bronchitis
- no evidence of pneumonia clinically. Started on empiric doxycycline and prednisone, now steroids discontinued. Continue Doxycycline through 12/24/24. Continue inhalers.
#Rapid atrial flutter
#Paroxysmal Atrial Fibrillation
#Admission to [facility] for new A-fib and CHF, d/c'd to [facility] 12/16/2024
- Patient had new Afib at [facility] recently and then atrial flutter on admission here.
- now rate controlled. Started on amiodarone by cardiology -- received Amiodarone load; plan is for amiodarone 200 mg BID until 01/05/25 and then transition to amiodarone 200 mg daily thereafter
- Continue metoprolol (outpatient dose of Lopressor 50 mg BID will be changed to Toprol XL 50 mg BID as per cardiology)
- Off Cardizem drip.
- Also, outpatient dose of Cardizem CD 360 mg daily stopped this admission
- Continue Eliquis.
- Will be considered for outpatient cardioversion after patient has been anticoagulated for 3 to 4 weeks
- Monitor QTc while on Amiodarone -- QTc okay so far
#Hypertension
- Continue beta brittny and Lasix
#Hyperlipidemia
- Continue Lipitor
#Acute on chronic anemia
-Component of acute blood loss anemia with heme positive stools, dark stools noted. Suspect acute blood loss anemia exacerbated by chronic anticoagulation with Eliquis. Suspect possible GI bleed. She does have a history of diverticulosis and
diverticular bleeding is a possibility. Hemodynamically stable. Hemoglobin this morning 8.3, overall stable. Doubt clinically significant bleeding. Eliquis was held but then resumed this hospitalization. Dr. Amador Discussed with patient.
Hold off on consulting GI as she is in acute heart failure and unlikely she will qualify for endoscopic evaluation, but will eventually need to do so. She states she was scheduled for colonoscopy prior to admission. Her last colonoscopy was 10
years ago, showing diverticular disease.
#Troponin elevation
- possibly due to acute nonischemic myocardial injury.
#Hypernatremia
- Resolved
#Tobacco dependence
-cessation advised.
#MARLEY
-previously on CPAP at home, transitioned to BiPAP on discharge a few days prior to presentationfrom [facility]. Patient states that the mask did not fit her well in the assisted which likely contributed to the hypoxic event prompting
her admission.
#Hypothyroidism
-continue levothyroxine. History of thyroidectomy. TSH 8.0, free T4 0.86. Hold off on making any changes to levothyroxine dose. Need to ensure that she is taking it properly on an empty stomach, first thing in the morning, apart from food or
other medications. Recheck TFTs outpatient.
#Morbid obesity due to excess calories
#Stage 2 Sacral Decubitus Wound LINE INSTALLER
#Left hip with dry, healed abrasion LINE INSTALLER
#Left heel stage 1 Pressure Injury LINE INSTALLER
-Continue wound care
#Thyroid nodule status post thyroidectomy
#Resultant hypothyroidism
#AAA
DNR/DNI -confirmed with patient and niece.
PT/OT -SNF recommended.
Anticipated Discharge: 24 - 48 hours
Subjective/Interval History
-
Date of Service: December 24, 2024
Patient was seen and examined. She reported feeling okay, denied any new chest pain or shortness of breath.
Objective Data
-
Labs:
Laboratory Results
12/24/24
06:45
WBC 9.4
Hgb 8.3 L
Hct 28.2 L
Plt Count 159
Sodium 139
Potassium 3.7
Chloride 89 L
Carbon Dioxide 50 H
BUN 22 H
Creatinine 0.8
Glucose 73
Calcium 8.7
Vital Signs:
Vital Signs
Temp Pulse Resp BP Pulse Ox
98 F 94 18 92/60 94
12/24/24 11:36 12/24/24 14:54 12/24/24 14:54 12/24/24 11:36 12/24/24 14:54
I&O
12/23/24 12/24/24 12/25/24
06:59 06:59 06:59
Intake Total 240 / 240 720 / 720
Output Total 1550 / 1550
Balance -1310 / -1310 720 / 720
[2024-12-24] MEDS: ProAmatine 2.5 MG PO ×2 (16:06→17:16)
--- NOTE | 2024-12-24 16:10 | PTCARENOTE ---
BP 81/37, at 1600- recheck 86/48, hospitalist notified and Midodrine 2.5 mg ordered and given. Lasix not given at present secondary to low BP.
--- NOTE | 2024-12-24 18:30 | PTCARENOTE ---
Pt BP 87/49 , hospitalist aware and lasix dose held. Pt does state she feels a 'little lightheaded ' when going from lying to sitting , resolves on its own in a few minutes.
[2024-12-24] MEDS: TOPROL XL PO (20:45)
[2024-12-25] VITALS (9 sets, daily range): BP systolic 86–126; BP diastolic 42–88; PULSE 2–107; O2SAT 92–94; BMI 48.9
[2024-12-25 07:17] LABS: Blood Urea Nitrogen 22 mg/dl (7-17); Calcium 8.7 mg/dl (8.4-10.2); Chloride 91 mmol/L (98-107); Estimated Creatinine Clearance 72 ml/min; Glucose 77 mg/dl (70-99); Magnesium 1.7 mg/dl (1.6-2.3); Potassium 3.5 mmol/L (3.5-5.1); Sodium 140 mmol/L (135-145); eGFR > 60.00
[2024-12-25] MEDS: DUONEB 3 ML INH ×4 (07:20→20:20)
[2024-12-25 07:22] LABS: Hematocrit 26.5 % (37.0-47.0); Hemoglobin 8.2 g/dL (12.0-16.0); Mean Corp Hgb Conc. 30.9 g/dL (33.0-37.0); Mean Corpuscular Volume 87.2 fL (81.0-99.0); Platelet Count 192 10^3/uL (130-400); Red Blood Cell Count 3.04 10^6/uL (4.20-5.40); Red Cell Dist. Width 22.6 % (11.5-14.5); White Blood Cell Count 9.3 10^3/uL (4.8-10.8)
[2024-12-25 07:56] LABS: Carbon Dioxide 46 mmol/L (22-30)
[2024-12-25] MEDS: NICODERM TRANSDERMAL TRANSDERM (09:02)
[2024-12-25] MEDS: LASIX IV (09:02)
[2024-12-25] MEDS: TOPROL XL PO (09:03)
[2024-12-25] MEDS: ProAmatine PO (09:05)
[2024-12-25] MEDS: ProAmatine 5 MG PO ×3 (09:08→16:43)
[2024-12-25] MEDS: ELIQUIS 5 MG PO ×2 (09:09→20:01)
[2024-12-25] MEDS: PACERONE 200 MG PO ×2 (09:09→20:02)
[2024-12-25] MEDS: ASPIR LOW (ENTERIC COATED) 81 MG PO (09:09)
[2024-12-25] MEDS: KCL 20 MEQ PO ×2 (09:09→20:01)
[2024-12-25] MEDS: SYNTHROID 175 MCG PO (09:09)
[2024-12-25] MEDS: DESENEX/MITRAZOL/ZEASORB 1 APPLIC TOPICAL ×2 (09:11→20:08)
[2024-12-25] MEDS: LIPITOR 20 MG PO (09:11)
--- NOTE | 2024-12-25 11:41 | W.PN.CARDCBS ---
Addendum entered and electronically signed by Zi Castaneda MD 12/25/24 12:52:
I saw and examined the patient.
The Crematorium Operator's note was reviewed and I agree with the note.
Comment: Briefly, 79-year-old woman with past medical history of heart failure with preserved ejection fraction and paroxysmal atrial fibrillation presenting in acute heart failure found to have rapid atrial flutter
Hypotensive this AM, suspect she may be overdiuresed
Hold further diuretics today
Start maintenance PO lasix tomorrow as BP tolerates
Has been in rate controlled atrial flutter here
Hold metoprolol for hypotension
Continue amiodarone for goal heart rate less than 110 bpm
Would consider outpatient cardioversion after she has been reliably anticoagulated for 3 to 4 weeks
Discussed with hospitalist
Original Note:
Today's Communication / Plan
-
will hold diuretics and metoprolol today due to hypotension
compression stockings to LE
Impression / Plan
-
Primary Inspector Filters: Dr. Guevara of [facility], last visit 12/2023
Impression:
Admitted with acute on chronic hypoxic/hypercapnic respiratory failure 12/18/24
Typical atrial flutter with RVR on admission
Paroxysmal Afib
Chronic Eliquis OAC
Acute HFpEF
Acute on chronic hypoxic/hypercapnic respiratory failure on BiPAP
Elevated troponin, suspected non ischemic myocardial injury
Admission to [facility] for new A-fib and new CHF, d/c'd to [facility] 12/16/2024
Hypertension
Hyperlipidemia
Thyroid nodule status post thyroidectomy
Resultant hypothyroidism
AAA
Ongoing tobacco use
Obesity
MARLEY
Forgetfulness
DNR CODE STATUS
ECHO 12/18/24: Mild concentric LVH, EF 70 to 75%, normal RV, trace TR PASP 30 to 35 mmHg
Plan:
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 Then sent to [facility] for respiratory failure and new
atrial flutter and HF on admission.
-since admission 12/18, wt down 26 lbs. Has been diuresed with Lasix 80 mg IV BID since admission. Patient was taking Lasix 40 mg PO BID prior to admission.
-Blood pressure 80s/50s 12/24 and complain of positional dizziness. Lasix held 12/24 p.m. and 12/25 a.m. and started on Midodrine.
-may be overdiuresed, although BUN/creat remain stable 22/0.8.
- will hold diuretics today, transition to oral Lasix 40 mg bid 12/26 as BP tolerates.
-started Midodrine 5 mg TID
-renal fxn stable BUN/creat 22/0.8 12/25. K 3.5 12/25.
-KCl increased to 20 meq BID 12/24. Holding diuretics today.
-EF 70-75% by echo this admission.
-Outpatient dose of Lopressor 50 mg BID changed to Toprol XL 50 mg BID 12/24/2024. Given lower BPs will reduce to Toprol 25 mg bid.
-Patient was not taking EDMUNDO/ARB/ARNI/aldosterone antagonist prior to admission. Cannot add due to hypotension
-Remains on O2, decreased to 1L 12/24 but back on 2L 12/25. Desaturated to 84% off O2 with activity with PT 12/24. Sat returned to 92% on 1 L NC. Patient was not using supplemental oxygen prior to admission. Continue to try to wean
-consider repeat CXR given continued O2 requirement despite diuresis.
-compression stockings to LEs
-Patient with new Afib at [facility] last week and then atrial flutter on admission here.
-Outpatient dose of Eliquis 5 mg BID (age 79, Cre 0.8) has been continued. Of note, Eliquis held 12/19/24 for dropping Hgb, but resumed with stable Hgb.
-Amiodarone added for adjunct rate control this admission, patient received 6 gram load as of 12/23/24 AM. Currently ordered amiodarone 200 mg BID. Plan is for amiodarone 200 mg BID until 01/05/25 and then transition to amiodarone 200 mg daily
thereafter
-decreasing Toprol to 25 mg bid due to hypotension
-Possible eventual outpatient CV pending improvement in respiratory status and after 4 weeks uninterrupted OAC
-QTc 418 ms by ECG 12/22/24
-Tele reviewed, by me, afib/flutter, HRs 70-110s. No palpitations.
-Outpatient dose of Cardizem CD 360 mg daily stopped this admission
-Peak troponin 0.037 managed as a nonischemic myocardial injury Troponin elevation
Progress Note - Inspector Filters
Subjective
Date of Service: December 25, 2024
BPs lower requiring initiation on Midodrine
pt with positional dizziness supine-->sitting
continues diuresis, down 28 lbs since admit but still requiring O2
denies SOB
Objective
Labs:
12/25/24 06:26
12/25/24 06:26
Labs
Hgb 8.2 g/dL (12.0-16.0) L 12/25/24 06:26
Hct 26.5 % (37.0-47.0) L 12/25/24 06:26
Plt Count 192 10^3/uL (130-400) D 12/25/24 06:26
Sodium 140 mmol/L (135-145) 12/25/24 06:26
Potassium 3.5 mmol/L (3.5-5.1) 12/25/24 06:26
BUN 22 mg/dl (7-17) H 12/25/24 06:26
Creatinine 0.8 mg/dL (0.6-1.0) 12/25/24 06:26
Glucose 77 mg/dl (70-99) 12/25/24 06:26
Vital Signs and I&O:
Vital Signs
Temp Pulse Resp BP Pulse Ox
97.1 F 103 16 94/42 94
12/25/24 11:00 12/25/24 11:19 12/25/24 11:19 12/25/24 11:00 12/25/24 11:19
Vital Signs
Temp Pulse Resp BP Pulse Ox
97.1 F 103 16 94/42 94
12/25/24 11:00 12/25/24 11:19 12/25/24 11:19 12/25/24 11:00 12/25/24 11:19
Intake & Output
12/23/24 12/24/24 12/25/24 12/26/24
06:59 06:59 06:59 06:59
Intake Total 240 / 240 720 / 720 960 / 960
Output Total 1550 / 1550
Balance -1310 / -1310 720 / 720 960 / 960
Physical Exam
Physical Exam
GEN: No distress, awake, Ox3
HEENT: supple, anicteric, mmm
LUNGS: decreased BS R base, exp wheezing
CV: irreg, irreg, no murmur
ABD: soft, BS+, NT/ND
EXT: trace B/L edema
NEURO: Gross non-focal
SKIN: No rash
--- NOTE | 2024-12-25 12:09 | W.PN.HOSP.TC ---
Today's Communication/Plan
-
CXR suggest worsening CHF
Although Lasix was held for hypotension, one dose given today given slightly increased O2 requirements and CXR findings from today
Beta brittny dose reduced due to hypotension
Continue Midodrine
Continue monitoring on telemetry
Assessment / Plan
Assessment / Plan
Physical Exam
Gen-awake, alert, NAD
HEENT-NC, AT, anicteric, clear oral mm
Neck-supple
CV-irregular, +S1/S2
Lungs-Decreased breath sounds bilaterally
Abd-soft, NT, ND. Positive bowel sounds.
Musculoskeletal-no cyanosis
Skin-warm and dry
Neuro-grossly non-focal
Psych-calm, cooperative
Assessment/Plan
#Acute on chronic hypoxic/hypercapnic respiratory failure -suspect multifactorial etiology including underlying obesity hypoventilation, MARLEY, pulmonary edema from heart failure, bronchitis, etc.
#Admitted with acute on chronic hypoxic/hypercapnic respiratory failure 12/18/24
Oxygenation adequate on 2 L nasal cannula (previously was on 4 L NC --> 2 L NC --> 1 L NC, now back up as of 12/25/24).
Worsening CHF based on CXR on 12/25/24 -- although holding Lasix given hypotension, plan to give 1 dose of Lasix today and recheck proBNP in the morning
ABG noted, PCO2 75, PO2 66, bicarb 52, pH 7.4. 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
Does not normally use oxygen at home. Was using CPAP at home for the past 7 months.
Recently hospitalized at [facility] ~7 days prior to presentation, discharged ~2 days prior to presentation, with transition to BiPAP. Discharged to [facility]. Subsequently admitted to our hospital for hypoxia.
New onset of cough productive of phlegm, yellow and green, ~2 days prior to presentation. Denied fevers or chills. Reportedly did not get antibiotics in outside hospital. Clinically doubt pneumonia.
She is afebrile, WBC count is normal. Completed ~5-day course of doxycycline for suspected bronchitis.
Patient denies history of COPD and states that her outpatient field broomer worked her up and told her that she does not have COPD despite lifelong smoking.
Continue outpatient BiPAP therapy at nighttime and with naps
#Bilateral Lower Extremity Edema
Doppler ultrasound bilateral lower extremities negative for DVT, does show a right calf soft tissue fluid collection. She is not complaining of any symptoms at that location. Monitor for now.
#Acute on chronic heart failure preserved ejection fraction exacerbation
-clinically improving on IV Lasix. Echocardiogram shows LVEF 70 to 75%, normal RV size and function, trace tricuspid regurgitation.
-Worsening CHF based on CXR on 12/25/24 -- although holding Lasix given hypotension and initial concern for overdiuresis, plan to give 1 dose of Lasix today and recheck proBNP in the morning
-Appreciate cardiology
-Can't add EDMUNDO/ARB/ARNI/aldosterone antagonist due to hypotension
#Acute bronchitis
- no evidence of pneumonia clinically. Started on empiric doxycycline and prednisone, now steroids discontinued. Continue Doxycycline through 12/24/24. Continue inhalers.
#Rapid atrial flutter
#Paroxysmal Atrial Fibrillation
#Admission to [facility] for new A-fib and CHF, d/c'd to [facility] 12/16/2024
- Patient had new Afib at [facility] recently and then atrial flutter on admission here.
- now rate controlled. Started on amiodarone by cardiology -- received Amiodarone load; plan is for amiodarone 200 mg BID until 01/05/25 and then transition to amiodarone 200 mg daily thereafter
- Continue metoprolol -- beta brittny dose reduced to Toprol 25 mg bid (instead of 50 mg BID) given hypotension
- Off Cardizem drip.
- Also, outpatient dose of Cardizem CD 360 mg daily stopped this admission
- Continue Eliquis.
- Will be considered for outpatient cardioversion after patient has been anticoagulated for 3 to 4 weeks
- Monitor QTc while on Amiodarone -- QTc okay so far
#Hypotension
- Midodrine ordered
#Hypertension
- Continue beta brittny and Lasix
#Hyperlipidemia
- Continue Lipitor
#Acute on chronic anemia
-Component of acute blood loss anemia with heme positive stools, dark stools noted. Suspect acute blood loss anemia exacerbated by chronic anticoagulation with Eliquis. Suspect possible GI bleed. She does have a history of diverticulosis and
diverticular bleeding is a possibility. Hemodynamically stable. Hemoglobin this morning 8.2, overall stable. Doubt clinically significant bleeding. Eliquis was held but then resumed this hospitalization. Dr. Amador Discussed with patient.
Hold off on consulting GI as she is in acute heart failure and unlikely she will qualify for endoscopic evaluation, but will eventually need to do so. She states she was scheduled for colonoscopy prior to admission. Her last colonoscopy was 10
years ago, showing diverticular disease.
#Troponin elevation
- possibly due to acute nonischemic myocardial injury.
#Hypernatremia
- Resolved
#Tobacco dependence
-cessation advised.
#MARLEY
-previously on CPAP at home, transitioned to BiPAP on discharge a few days prior to presentationfrom [facility]. Patient states that the mask did not fit her well in the alf which likely contributed to the hypoxic event prompting
her admission.
#Hypothyroidism
-continue levothyroxine. History of thyroidectomy. TSH 8.0, free T4 0.86. Hold off on making any changes to levothyroxine dose. Need to ensure that she is taking it properly on an empty stomach, first thing in the morning, apart from food or
other medications. Recheck TFTs outpatient.
#Morbid obesity due to excess calories
#Stage 2 Sacral Decubitus Wound FRUIT RAISER
#Left hip with dry, healed abrasion FRUIT RAISER
#Left heel stage 1 Pressure Injury FRUIT RAISER
-Continue wound care
#Thyroid nodule status post thyroidectomy
#Resultant hypothyroidism
#AAA
DNR/DNI -confirmed with patient and niece.
PT/OT -SNF recommended.
Anticipated Discharge: > 48 hours
Subjective/Interval History
-
Date of Service: December 25, 2024
Patient was seen and examined. She denied any chest pain or shortness of breath.
Objective Data
-
Labs:
Laboratory Results
12/25/24
06:26
WBC 9.3
Hgb 8.2 L
Hct 26.5 L
Plt Count 192 D
Sodium 140
Potassium 3.5
Chloride 91 L
Carbon Dioxide 46 H
BUN 22 H
Creatinine 0.8
Glucose 77
Calcium 8.7
Vital Signs:
Vital Signs
Temp Pulse Resp BP Pulse Ox
97.1 F 103 16 94/42 94
12/25/24 11:00 12/25/24 11:19 12/25/24 11:19 12/25/24 11:00 12/25/24 11:19
I&O
12/24/24 12/25/24 12/26/24
06:59 06:59 06:59
Intake Total 720 / 720 960 / 960
Balance 720 / 720 960 / 960
--- NOTE | 2024-12-25 15:32 | WOUNDNOTE ---
WOC RN NOTE: Visited patients room 4 times over the past 2 days to re-assess patients wounds. Patient has been sleeping each time I have stopped by. Per chart review patient has had low BP's and CHF has worsened. Spoke to patient's RN Taylor who
said patients sacrum is covered with silicone border foam. Worklist from 12/23 notes that sacral wound as stage 1. Patient remains on [facility] bed and turning schedule. Will follow as needed.
[2024-12-25] MEDS: LASIX 60 MG IV (16:42)
[2024-12-25] MEDS: TOPROL XL 25 MG PO (20:03)
[2024-12-26] VITALS (7 sets, daily range): BP systolic 86–131; BP diastolic 48–63; PULSE 2–110; BMI 48.7; BMI 46.9
[2024-12-26] MEDS: SYNTHROID 175 MCG PO (05:49)
[2024-12-26 06:33] LABS: Hematocrit 26.2 % (37.0-47.0); Hemoglobin 7.9 g/dL (12.0-16.0); Mean Corp Hgb Conc. 30.2 g/dL (33.0-37.0); Mean Corpuscular Hgb 26.6 pg (27.0-31.0); Mean Corpuscular Volume 88.2 fL (81.0-99.0); Mean Platelet Volume 12.7 fL (7.4-10.4); Platelet Count 209 10^3/uL (130-400); Red Blood Cell Count 2.97 10^6/uL (4.20-5.40); Red Cell Dist. Width 22.7 % (11.5-14.5); White Blood Cell Count 9.4 10^3/uL (4.8-10.8)
[2024-12-26 06:50] LABS: Blood Urea Nitrogen 21 mg/dl (7-17); Calcium 8.9 mg/dl (8.4-10.2); Chloride 94 mmol/L (98-107); Estimated Creatinine Clearance 72 ml/min; Glucose 81 mg/dl (70-99); Potassium 3.7 mmol/L (3.5-5.1); Sodium 142 mmol/L (135-145); eGFR > 60.00
[2024-12-26 06:59] LABS: NT-proBNP 1380 pg/ml
[2024-12-26 07:02] LABS: Carbon Dioxide 43 mmol/L (22-30)
[2024-12-26] MEDS: DUONEB 3 ML INH ×4 (07:14→20:09)
[2024-12-26] MEDS: TOPROL XL PO ×2 (09:41→21:09)
[2024-12-26] MEDS: NICODERM TRANSDERMAL 7 MG TRANSDERM (10:07)
[2024-12-26] MEDS: LIPITOR 20 MG PO (10:08)
[2024-12-26] MEDS: LASIX 40 MG IV ×2 (10:08→17:28)
[2024-12-26] MEDS: ELIQUIS 5 MG PO ×2 (10:08→21:00)
[2024-12-26] MEDS: ASPIR LOW (ENTERIC COATED) 81 MG PO (10:08)
[2024-12-26] MEDS: PACERONE 200 MG PO ×2 (10:08→21:10)
[2024-12-26] MEDS: KCL 20 MEQ PO ×3 (10:08→21:10)
[2024-12-26] MEDS: ProAmatine 5 MG PO ×3 (10:08→17:40)
--- NOTE | 2024-12-26 10:42 | W.PN.CARDCBS ---
Addendum entered and electronically signed by Arvin Rosario MD 12/26/24 11:00:
Patient seen and examined
Agree with HOSTESS PARTY SALES REPRESENTATIVE note and assessment
Agree with HOSTESS PARTY SALES REPRESENTATIVE plan
����Physical Exam
���������������������General:��no apparent distress, not acutely ill
���������������������������Neck:��supple. no meningeal signs. normal psoterior pharynx
������������������������
���������������������������Heart:��s1/s2 regular rate and rhythm, no murmur. equal radial pulses.
��������������������������Lungs: ��no acute respiratory distress. clear bilaterally
����������������������Abdomen:�normal bowel sounds. not tender. no CVAT
��������������������������Neuro:��alert and oriented. no focal neurological deficits
������������������������������Skin: ��no rash
�����������������������Psychiatric:�well kept. interactive and cooperative
�����������������������Extremities:��no edema. no calf tenderness. negative homans. good distal pulses
Primary Lamination Inspector: Dr. Guevara of [facility], last visit 12/2023
Impression:
Admitted with acute on chronic hypoxic/hypercapnic respiratory failure 12/18/24
Typical atrial flutter with RVR on admission
Paroxysmal Afib
Chronic Eliquis OAC
Acute HFpEF
Acute on chronic hypoxic/hypercapnic respiratory failure on BiPAP
Elevated troponin, suspected non ischemic myocardial injury
Admission to [facility] for new A-fib and new CHF, d/c'd to [facility] 12/16/2024
Hypertension
Hyperlipidemia
Thyroid nodule status post thyroidectomy
Resultant hypothyroidism
AAA
Ongoing tobacco use
Obesity
MARLEY
Forgetfulness
DNR CODE STATUS
ECHO 12/18/24: Mild concentric LVH, EF 70 to 75%, normal RV, trace TR PASP 30 to 35 mmHg
Plan:
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 Then sent to [facility] for respiratory failure and new
atrial flutter and HF on admission.
-since admission 12/18, wt down 27 lbs. Has been diuresed with Lasix 80 mg IV BID since admission. Patient was taking Lasix 40 mg PO BID prior to admission.
-Blood pressure 80s/50s 12/24 and complain of positional dizziness. Lasix held 12/24 p.m. and 12/25 a.m. and started on Midodrine.
-BUN/creat remain stable 22/0.8 with diuresis
-Chest x-ray 12/25 w/ pulm edema/HF, proBNP 12/26 1380 (was 1989 on admit)
-will cont IV diuresis as BP tolerates. Will reduce Lasix to 40 mg IV bid (has been on 80 mg IV bid).
-started Midodrine 5 mg TID w/ improvement in BPs
-renal fxn stable BUN/creat 21/0.8 12/26. K 3.7 12/26.
-will increase KCl to 20 meq TID
-EF 70-75% by echo this admission.
-Outpatient dose of Lopressor 50 mg BID changed to Toprol XL 50 mg BID 12/24/2024. Does reduced to Toprol 25 mg bid due to lower BPs
-Patient was not taking EDMUNDO/ARB/ARNI/aldosterone antagonist prior to admission. Cannot add due to hypotension
-Remains on O2, decreased to 1L 12/24 but back on 2L 12/25. Desaturated to 84% off O2 with activity with PT 12/24. Sat returned to 92% on 1 L NC. Patient was not using supplemental oxygen prior to admission. Continue to try to wean. Spoke with
ceci Wyman on phone who reports home O2 sat had been in low 90s prior to admission.
-compression stockings to LEs
-increase physical activity/OOB
-Patient with new Afib at [facility] last week and then atrial flutter on admission here.
-Outpatient dose of Eliquis 5 mg BID (age 79, Cre 0.8) has been continued. Of note, Eliquis held 12/19/24 for dropping Hgb, but resumed with stable Hgb.
-Amiodarone added for adjunct rate control this admission, patient received 6 gram load as of 12/23/24 AM. Currently ordered amiodarone 200 mg BID. Plan is for amiodarone 200 mg BID until 01/05/25 and then transition to amiodarone 200 mg daily
thereafter
-decreased Toprol to 25 mg bid due to hypotension
-Possible eventual outpatient CV pending improvement in respiratory status and after 4 weeks uninterrupted OAC
-QTc 418 ms by ECG 12/22/24
-Tele reviewed, by me, afib/flutter, HRs 70-110s. No palpitations.
-Outpatient dose of Cardizem CD 360 mg daily stopped this admission
-Peak troponin 0.037 managed as a nonischemic myocardial injury Troponin elevation
- Reasonable to consider evaluation by PT. We will arrange for outpatient cardioversion on uninterrupted oral anticoagulation hopefully can change to oral diuretic on Saturday. December 28
Original Note:
Today's Communication / Plan
-
cont IV diuresis at reduced dose of Lasix 40 mg IV BID
increase supplemental KCl
PT/OT
wean O2
Impression / Plan
-
Primary Lamination Inspector: Dr. Guevara of [facility], last visit 12/2023
Impression:
Admitted with acute on chronic hypoxic/hypercapnic respiratory failure 12/18/24
Typical atrial flutter with RVR on admission
Paroxysmal Afib
Chronic Eliquis OAC
Acute HFpEF
Acute on chronic hypoxic/hypercapnic respiratory failure on BiPAP
Elevated troponin, suspected non ischemic myocardial injury
Admission to [facility] for new A-fib and new CHF, d/c'd to [facility] 12/16/2024
Hypertension
Hyperlipidemia
Thyroid nodule status post thyroidectomy
Resultant hypothyroidism
AAA
Ongoing tobacco use
Obesity
MARLEY
Forgetfulness
DNR CODE STATUS
ECHO 12/18/24: Mild concentric LVH, EF 70 to 75%, normal RV, trace TR PASP 30 to 35 mmHg
Plan:
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 Then sent to [facility] for respiratory failure and new
atrial flutter and HF on admission.
-since admission 12/18, wt down 27 lbs. Has been diuresed with Lasix 80 mg IV BID since admission. Patient was taking Lasix 40 mg PO BID prior to admission.
-Blood pressure 80s/50s 12/24 and complain of positional dizziness. Lasix held 12/24 p.m. and 12/25 a.m. and started on Midodrine.
-BUN/creat remain stable 22/0.8 with diuresis
-Chest x-ray 12/25 w/ pulm edema/HF, proBNP 12/26 1380 (was 1988 on admit)
-will cont IV diuresis as BP tolerates. Will reduce Lasix to 40 mg IV bid (has been on 80 mg IV bid).
-started Midodrine 5 mg TID w/ improvement in BPs
-renal fxn stable BUN/creat 21/0.8 12/26. K 3.7 12/26.
-will increase KCl to 20 meq TID
-EF 70-75% by echo this admission.
-Outpatient dose of Lopressor 50 mg BID changed to Toprol XL 50 mg BID 12/24/2024. Does reduced to Toprol 25 mg bid due to lower BPs
-Patient was not taking EDMUNDO/ARB/ARNI/aldosterone antagonist prior to admission. Cannot add due to hypotension
-Remains on O2, decreased to 1L 12/24 but back on 2L 12/25. Desaturated to 84% off O2 with activity with PT 12/24. Sat returned to 92% on 1 L NC. Patient was not using supplemental oxygen prior to admission. Continue to try to wean. Spoke with
niece Zamzam on phone who reports home O2 sat had been in low 90s prior to admission.
-compression stockings to LEs
-increase physical activity/OOB
-Patient with new Afib at [facility] last week and then atrial flutter on admission here.
-Outpatient dose of Eliquis 5 mg BID (age 79, Cre 0.8) has been continued. Of note, Eliquis held 12/19/24 for dropping Hgb, but resumed with stable Hgb.
-Amiodarone added for adjunct rate control this admission, patient received 6 gram load as of 12/23/24 AM. Currently ordered amiodarone 200 mg BID. Plan is for amiodarone 200 mg BID until 01/05/25 and then transition to amiodarone 200 mg daily
thereafter
-decreased Toprol to 25 mg bid due to hypotension
-Possible eventual outpatient CV pending improvement in respiratory status and after 4 weeks uninterrupted OAC
-QTc 418 ms by ECG 12/22/24
-Tele reviewed, by me, afib/flutter, HRs 70-110s. No palpitations.
-Outpatient dose of Cardizem CD 360 mg daily stopped this admission
-Peak troponin 0.037 managed as a nonischemic myocardial injury Troponin elevation
Progress Note - Lamination Inspector
Subjective
Date of Service: December 26, 2024
still requiring O2
Objective
Labs:
12/26/24 06:00
12/26/24 06:00
Labs
Hgb 7.9 g/dL (12.0-16.0) L 12/26/24 06:00
Hct 26.2 % (37.0-47.0) L 12/26/24 06:00
Plt Count 209 10^3/uL (130-400) 12/26/24 06:00
Sodium 142 mmol/L (135-145) 12/26/24 06:00
Potassium 3.7 mmol/L (3.5-5.1) 12/26/24 06:00
BUN 21 mg/dl (7-17) H 12/26/24 06:00
Creatinine 0.8 mg/dL (0.6-1.0) 12/26/24 06:00
Glucose 81 mg/dl (70-99) 12/26/24 06:00
Vital Signs and I&O:
Vital Signs
Temp Pulse Resp BP Pulse Ox
97.8 F 99 18 90/63 92
12/26/24 07:00 12/26/24 07:16 12/26/24 07:16 12/26/24 07:00 12/26/24 07:16
Vital Signs
Temp Pulse Resp BP Pulse Ox
97.8 F 99 18 90/63 92
12/26/24 07:00 12/26/24 07:16 12/26/24 07:16 12/26/24 07:00 12/26/24 07:16
Intake & Output
12/24/24 12/25/24 12/26/24 12/27/24
06:59 06:59 06:59 06:59
Intake Total 720 / 720 960 / 960 480 / 480
Balance 720 / 720 960 / 960 480 / 480
Physical Exam
Physical Exam
GEN: No distress, awake, Ox3
HEENT: supple, anicteric, mmm
LUNGS: decreased bases
CV: irreg, irreg, no murmur
ABD: soft, BS+, NT/ND
EXT: trace edema
NEURO: Gross non-focal
SKIN: No rash
--- NOTE | 2024-12-26 11:03 | W.PN.HOSP.TC ---
Today's Communication/Plan
-
Continue IV Lasix
Anticipate transitioning to oral Lasix on Saturday
Continue monitoring on telemetry
Assessment / Plan
Assessment / Plan
Physical Exam
Gen-awake, alert, NAD
HEENT-NC, AT, anicteric, clear oral mm
Neck-supple
CV-irregular, +S1/S2
Lungs-Decreased breath sounds bilaterally
Abd-soft, NT, ND. Positive bowel sounds.
Musculoskeletal-no cyanosis
Skin-warm and dry
Neuro-grossly non-focal
Psych-calm, cooperative
Assessment/Plan
#Acute on chronic hypoxic/hypercapnic respiratory failure -suspect multifactorial etiology including underlying obesity hypoventilation, MARLEY, pulmonary edema from heart failure, bronchitis, etc.
#Admitted with acute on chronic hypoxic/hypercapnic respiratory failure 12/18/24
No oxygen use at home. Oxygenation adequate on 2 L nasal cannula (previously was on 4 L NC --> 2 L NC --> 1 L NC, now back up to 2 L as of 12/25/24).
Worsening CHF based on CXR on 12/25/24 -- continue Lasix IV 40 mg BID (was previously on IV 80 mg BID, but this was stopped due to hypotension, now lower dose IV Lasix resumed given CXR findings 12/25+increased O2 requirements)
ABG noted, PCO2 75, PO2 66, bicarb 52, pH 7.4. 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
Does not normally use oxygen at home. Was using CPAP at home for the past 7 months.
Recently hospitalized at [facility] ~7 days prior to presentation, discharged ~2 days prior to presentation, with transition to BiPAP. Discharged to [facility]. Subsequently admitted to our hospital for hypoxia.
New onset of cough productive of phlegm, yellow and green, ~2 days prior to presentation. Denied fevers or chills. Reportedly did not get antibiotics in outside hospital. Clinically doubt pneumonia.
She is afebrile, WBC count is normal. Completed ~5-day course of doxycycline for suspected bronchitis.
Patient denies history of COPD and states that her outpatient women's lacrosse coach worked her up and told her that she does not have COPD despite lifelong smoking.
Continue outpatient BiPAP therapy at nighttime and with naps
#Bilateral Lower Extremity Edema
Doppler ultrasound bilateral lower extremities negative for DVT, does show a right calf soft tissue fluid collection. She is not complaining of any symptoms at that location. Monitor for now.
#Acute on chronic heart failure preserved ejection fraction exacerbation
-clinically improving on IV Lasix. Echocardiogram shows LVEF 70 to 75%, normal RV size and function, trace tricuspid regurgitation.
-Worsening CHF based on CXR on 12/25/24 -- continue Lasix IV 40 mg BID (was previously on IV 80 mg BID, but this was stopped due to hypotension, now lower dose IV Lasix resumed given CXR
findings on 12/25+increased O2 requirements)
-Appreciate cardiology
-Can't add EDMUNDO/ARB/ARNI/aldosterone antagonist due to hypotension
#Acute bronchitis
- no evidence of pneumonia clinically. Started on empiric doxycycline and prednisone, now steroids discontinued. Continue Doxycycline through 12/24/24. Continue inhalers.
#Rapid atrial flutter
#Paroxysmal Atrial Fibrillation
#Admission to [facility] for new A-fib and CHF, d/c'd to [facility] 12/16/2024
- Patient had new Afib at [facility] recently and then atrial flutter on admission here.
- now rate controlled. Started on amiodarone by cardiology -- received Amiodarone load; plan is for amiodarone 200 mg BID until 01/05/25 and then transition to amiodarone 200 mg daily thereafter
- Continue metoprolol -- beta brittny dose reduced to Toprol 25 mg bid (instead of 50 mg BID) given hypotension
- Off Cardizem drip.
- Also, outpatient dose of Cardizem CD 360 mg daily stopped this admission
- Continue Eliquis.
- Will be considered for outpatient cardioversion after patient has been anticoagulated for 3 to 4 weeks
- Monitor QTc while on Amiodarone -- QTc okay so far
#Hypotension
- Midodrine ordered
#Hypertension
- Continue beta brittny and Lasix
#Hyperlipidemia
- Continue Lipitor
#Acute on chronic anemia
-Component of acute blood loss anemia with heme positive stools, dark stools noted. Suspect acute blood loss anemia exacerbated by chronic anticoagulation with Eliquis. Suspect possible GI bleed. She does have a history of diverticulosis and
diverticular bleeding is a possibility. Hemodynamically stable. Hemoglobin this morning 7.9, slight drop from day before. Doubt clinically significant bleeding. Eliquis was held but then resumed this hospitalization. Dr. Amador Discussed with
patient.
Hold off on consulting GI as she is in acute heart failure and unlikely she will qualify for endoscopic evaluation, but will eventually need to do so. She states she was scheduled for colonoscopy prior to admission. Her last colonoscopy was 10
years ago, showing diverticular disease.
-Iron Studies and stool for occult blood test
#Troponin elevation
- possibly due to acute nonischemic myocardial injury.
#Hypernatremia
- Resolved
#Tobacco dependence
-cessation advised.
#MARLEY
-previously on CPAP at home, transitioned to BiPAP on discharge a few days prior to [facility]. Patient states that the mask did not fit her well in the [facility] which likely contributed to the hypoxic event prompting
her admission.
#Hypothyroidism
-continue levothyroxine. History of thyroidectomy. TSH 8.0, free T4 0.86. Hold off on making any changes to levothyroxine dose. Need to ensure that she is taking it properly on an empty stomach, first thing in the morning, apart from food or
other medications. Recheck TFTs outpatient.
#Morbid obesity due to excess calories
#Stage 2 Sacral Decubitus Wound FIRST OFFICER
#Left hip with dry, healed abrasion FIRST OFFICER
#Left heel stage 1 Pressure Injury FIRST OFFICER
-Continue wound care
#Thyroid nodule status post thyroidectomy
#Resultant hypothyroidism
#AAA
DNR/DNI -confirmed with patient and niece.
PT/OT -SNF recommended.
On 12/26/24, I spoke to patient's niece and answered all her questions and concerns.
Anticipated Discharge: 24 - 48 hours
Subjective/Interval History
-
Date of Service: December 26, 2024
Patient was seen and examined. She denied any new symptoms or complaints.
Objective Data
-
Labs:
Laboratory Results
12/26/24
06:00
WBC 9.4
Hgb 7.9 L
Hct 26.2 L
Plt Count 209
Sodium 142
Potassium 3.7
Chloride 94 L
Carbon Dioxide 43 H
BUN 21 H
Creatinine 0.8
Glucose 81
Calcium 8.9
Vital Signs:
Vital Signs
Temp Pulse Resp BP Pulse Ox
97.8 F 99 18 90/63 92
12/26/24 07:00 12/26/24 07:16 12/26/24 07:16 12/26/24 07:00 12/26/24 07:16
I&O
12/25/24 12/26/24 12/27/24
06:59 06:59 06:59
Intake Total 960 / 960 480 / 480
Balance 960 / 960 480 / 480
[2024-12-26] MEDS: DESENEX/MITRAZOL/ZEASORB 1 APPLIC TOPICAL ×2 (12:38→21:11)
[2024-12-26 12:47] LABS: Iron 45 ug/dl (37-170)
[2024-12-26 12:56] LABS: Percent Saturation 14 % (20-50); Total Iron Binding Capacity 321 ug/dl (265-497)
[2024-12-26 13:23] LABS: Ferritin 32.3 ng/ml (11.1-264.0)
--- NOTE | 2024-12-26 22:02 | W.PN.UPDATE ---
Update Note
Progress Note Update
Attending physician recommended to
-Transfer the patient to IMU level for close monitoring/ hypotension and one time bag of NSS 250cc at slow rate. Current bp 86/48, hr 115 Spo2 in 90s and afebrile.
-IVF did not started in IMU as BP improved without intervention with SBP in 100s.
--- NOTE | 2024-12-26 23:00 | PTCARENOTE ---
Pt. was transferred to IMU, notified by VEGA Arias, pt. AAO x 3, having low blood pressures ongoing, asymtomatic, transported pt. with respiratory, gave report to Rowan
--- NOTE | 2024-12-26 23:45 | PTCARENOTE ---
Patient transported from in the bed. Report received from RN. Pt AAOx3. BPs currently stable 131/57 MAP 78. WEB SUPPORT ENGINEER Dee Dee bedside, advised to hold off of NSS bolus and continue to closely monitor. HR 110 sinus tachycardia w/ PACs. Received pt on 2L
NC SpO2 95%. RT Vignesh bedside to place pt on BiPAP. Pt states 'I will see if I can tolerate that mask'. Education provided and reassurance. Lungs are diminished. Pt asymptomatic. Wounds assessed and redressed see worklist. Pt educated and oriented
to the unit. Call garrett is within reach.
[2024-12-27] VITALS (14 sets, daily range): BP systolic 86–130; BP diastolic 50–77; PULSE 2–112; BMI 46.9
[2024-12-27 04:33] LABS: Hematocrit 25.3 % (37.0-47.0); Hemoglobin 7.6 g/dL (12.0-16.0); Mean Corpuscular Hgb 25.9 pg (27.0-31.0); Mean Corpuscular Volume 86.3 fL (81.0-99.0); Mean Platelet Volume 12.4 fL (7.4-10.4); Platelet Count 225 10^3/uL (130-400); Red Blood Cell Count 2.93 10^6/uL (4.20-5.40); Red Cell Dist. Width 22.6 % (11.5-14.5); White Blood Cell Count 10.7 10^3/uL (4.8-10.8)
[2024-12-27 04:57] LABS: Blood Urea Nitrogen 20 mg/dl (7-17); Calcium 8.3 mg/dl (8.4-10.2); Chloride 97 mmol/L (98-107); Estimated Creatinine Clearance 62 ml/min; Glucose 83 mg/dl (70-99); Magnesium 1.9 mg/dl (1.6-2.3); Potassium 3.9 mmol/L (3.5-5.1); Sodium 141 mmol/L (135-145); eGFR > 60.00
[2024-12-27 05:56] LABS: Carbon Dioxide 39 mmol/L (22-30)
[2024-12-27] MEDS: SYNTHROID 175 MCG PO (05:59)
[2024-12-27] MEDS: DUONEB 3 ML INH ×4 (07:25→19:57)
--- NOTE | 2024-12-27 07:59 | W.PN.HOSP.TC ---
Today's Communication/Plan
-
Transferred to IMU overnight given MAP in the low 60s+fatigue/tiredness
IV iron for anemia
Continue to hold Lasix
If needed, can do 250 cc to 500 cc IV fluid bolus
Check AM Hgb and watch vital signs for improvement
If Hgb stable/better tomorrow, blood pressure improves, patient feels okay, then can discharge tomorrow
Assessment / Plan
Assessment / Plan
Physical Exam
Gen-awake, alert, NAD
HEENT-NC, AT, anicteric, clear oral mm
Neck-supple
CV-irregular, +S1/S2
Lungs-Decreased breath sounds bilaterally
Abd-soft, NT, ND. Positive bowel sounds.
Musculoskeletal-no cyanosis
Skin-warm and dry
Neuro-grossly non-focal
Psych-calm, cooperative
Assessment/Plan
#Acute on chronic hypoxic/hypercapnic respiratory failure -suspect multifactorial etiology including underlying obesity hypoventilation, MARLEY, pulmonary edema from heart failure, bronchitis, etc.
#Admitted with acute on chronic hypoxic/hypercapnic respiratory failure 12/18/24
No oxygen use at home. Oxygenation adequate on 2 L nasal cannula (previously was on 4 L NC --> 2 L NC --> 1 L NC, now back up to 2 L as of 12/25/24).
Worsening CHF based on CXR on 12/25/24 -- continue Lasix IV 40 mg BID (was previously on IV 80 mg BID, but this was stopped due to hypotension, now lower dose IV Lasix resumed given CXR findings 12/25+increased O2 requirements)
ABG noted, PCO2 75, PO2 66, bicarb 52, pH 7.4. 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
Does not normally use oxygen at home. Was using CPAP at home for the past 7 months.
Recently hospitalized at [facility] ~7 days prior to presentation, discharged ~2 days prior to presentation, with transition to BiPAP. Discharged to [facility]. Subsequently admitted to our hospital for hypoxia.
New onset of cough productive of phlegm, yellow and green, ~2 days prior to presentation. Denied fevers or chills. Reportedly did not get antibiotics in outside hospital. Clinically doubt pneumonia.
She is afebrile, WBC count is normal. Completed ~5-day course of doxycycline for suspected bronchitis.
Patient denies history of COPD and states that her outpatient toy parts former supervisor worked her up and told her that she does not have COPD despite lifelong smoking.
Continue outpatient BiPAP therapy at nighttime and with naps
#Bilateral Lower Extremity Edema
Doppler ultrasound bilateral lower extremities negative for DVT, does show a right calf soft tissue fluid collection. She is not complaining of any symptoms at that location. Monitor for now.
#Acute on chronic heart failure preserved ejection fraction exacerbation
-clinically improving on IV Lasix. Echocardiogram shows LVEF 70 to 75%, normal RV size and function, trace tricuspid regurgitation.
- Despite Midodrine, hypotension persists --> blood pressure now gradually improving after holding Lasix (last dose Lasix was 12/26/24 evening)
- Spoke with travel attendants Dr. Rosario: we probably finally hit the overdiuresis wall, hold ALL Lasix for now and resume P.O. Lasix in a day or two
-Appreciate cardiology
-Can't add EDMUNDO/ARB/ARNI/aldosterone antagonist due to hypotension
#Hypotension associated with fatigue and tiredness
- Midodrine ordered
- Despite Midodrine, hypotension persists --> blood pressure now gradually improving after holding Lasix (last dose Lasix was 12/26/24 evening)
- Spoke with travel attendants Dr. Rosario: we probably finally hit the overdiuresis wall, hold ALL Lasix for now and resume P.O. Lasix in a day or two
- Can give 250 to a 500 cc IV fluid bolus if needed for hypotension
- If hypotension persists despite holding Lasix and potential IV fluid bolus, consider increasing Midodrine to 10 mg
#Acute on chronic anemia
-Component of acute blood loss anemia with heme positive stools, dark stools noted. Suspect acute blood loss anemia exacerbated by chronic anticoagulation with Eliquis. Suspect possible GI bleed. She does have a history of diverticulosis and
diverticular bleeding is a possibility. Hemodynamically stable. Hemoglobin this morning 7.6, dropped from day before. Eliquis was held but then resumed this hospitalization.
-Hold off on consulting GI as she is in acute heart failure and unlikely she will qualify for endoscopic evaluation, but will eventually need to do so. She states she was scheduled for colonoscopy prior to admission. Her last colonoscopy was 10
years ago, showing diverticular disease.
-Iron Studies ordered showing iron deficiency anemia with low ferritin and low % saturation
-IV iron ordered 12/27/24
-Still awaiting bowel movement to check stool occult blood
-If Hgb dropping still going into 12/28/24, consider GI consult
-Transfuse PRBC if Hgb<7 (I discussed with travel attendants Dr. Rosario and this is an acceptable threshold for transfusion)
#Acute bronchitis
- no evidence of pneumonia clinically. Started on empiric doxycycline and prednisone, now steroids discontinued. Continue Doxycycline through 12/24/24. Continue inhalers.
#Rapid atrial flutter
#Paroxysmal Atrial Fibrillation
#Admission to [facility] for new A-fib and CHF, d/c'd to [facility] 12/16/2024
- Was previously on Cardizem Drip, now off. Also, outpatient dose of Cardizem CD 360 mg daily stopped this admission.
- Patient had new Afib at [facility] recently and then atrial flutter on admission here.
- now rate controlled. Started on amiodarone by cardiology -- received Amiodarone load; plan is for amiodarone 200 mg BID until 01/05/25 and then transition to amiodarone 200 mg daily thereafter
- Continue metoprolol -- beta brittny dose reduced to Toprol 25 mg bid (instead of 50 mg BID) given hypotension
- Continue Eliquis.
- Will be considered for outpatient cardioversion after patient has been anticoagulated for 3 to 4 weeks
- Monitor QTc while on Amiodarone -- QTc okay so far
#Hypertension
- Currently HYPOtensive (see above)
#Hyperlipidemia
- Continue Lipitor
#Troponin elevation
- possibly due to acute nonischemic myocardial injury.
#Hypernatremia
- Resolved
#Tobacco dependence
-cessation advised.
#MARLEY
-previously on CPAP at home, transitioned to BiPAP on discharge a few days prior to presentation[facility]. Patient states that the mask did not fit her well in the [facility] which likely contributed to the hypoxic event prompting
her admission.
#Hypothyroidism
-continue levothyroxine. History of thyroidectomy. TSH 8.0, free T4 0.86. Hold off on making any changes to levothyroxine dose. Need to ensure that she is taking it properly on an empty stomach, first thing in the morning, apart from food or
other medications. Recheck TFTs outpatient.
#Morbid obesity due to excess calories
#Stage 2 Sacral Decubitus Wound ELECTRICAL HIGH TENSION TESTER
#Left hip with dry, healed abrasion ELECTRICAL HIGH TENSION TESTER
#Left heel stage 1 Pressure Injury ELECTRICAL HIGH TENSION TESTER
-Continue wound care
#Thyroid nodule status post thyroidectomy
#Resultant hypothyroidism
#AAA
DNR/DNI -confirmed with patient and niece.
PT/OT -SNF recommended.
On 12/26/24, I spoke to patient's niece and answered all her questions and concerns.
Anticipated Discharge: Within 24 hours
Subjective/Interval History
-
Date of Service: December 27, 2024
Patient was seen and examined. She reported a bit fatigued, denied any chest pain or shortness of breath.
Objective Data
-
Labs:
Laboratory Results
12/27/24
04:08
WBC 10.7
Hgb 7.6 L
Hct 25.3 L
Plt Count 225
Sodium 141
Potassium 3.9
Chloride 97 L
Carbon Dioxide 39 H
BUN 20 H
Creatinine 0.9
Glucose 83
Calcium 8.3 L
Vital Signs:
Vital Signs
Temp Pulse Resp BP Pulse Ox
97.7 F 100 16 94/70 98
12/27/24 02:27 12/27/24 07:26 12/27/24 07:26 12/27/24 06:00 12/27/24 07:26
I&O
12/26/24 12/27/24 12/28/24
06:59 06:59 06:59
Intake Total 480 / 480
Balance 480 / 480
[2024-12-27] MEDS: ASPIR LOW (ENTERIC COATED) 81 MG PO (09:20)
[2024-12-27] MEDS: ELIQUIS 5 MG PO ×2 (09:21→20:53)
[2024-12-27] MEDS: DESENEX/MITRAZOL/ZEASORB 1 APPLIC TOPICAL ×2 (09:21→20:53)
[2024-12-27] MEDS: KCL 20 MEQ PO ×3 (09:22→20:53)
[2024-12-27] MEDS: LIPITOR 20 MG PO (09:22)
[2024-12-27] MEDS: NICODERM TRANSDERMAL TRANSDERM (09:23)
[2024-12-27] MEDS: ProAmatine 5 MG PO ×2 (09:23→12:47)
[2024-12-27] MEDS: PACERONE 200 MG PO ×2 (09:23→20:54)
--- NOTE | 2024-12-27 10:41 | W.PN.CARDCBS ---
Today's Communication / Plan
-
Holding diuretic
Support blood pressure
I have no objection to fluid bolus
IV iron
Transfuse for hemoglobin less than 7
Outpatient cardioversion in 4 weeks on oral anticoagulation currently
Amiodarone for adjuvant rate control
Impression / Plan
-
Primary Beef Lugger: Dr. Guevara of [facility], last visit 12/2023
Impression:
Admitted with acute on chronic hypoxic/hypercapnic respiratory failure 12/18/24
Typical atrial flutter with RVR on admission
Paroxysmal Afib
Chronic Eliquis OAC
Acute HFpEF
Acute on chronic hypoxic/hypercapnic respiratory failure on BiPAP
Elevated troponin, suspected non ischemic myocardial injury
Admission to [facility] for new A-fib and new CHF, d/c'd to [facility] 12/16/2024
Hypertension
Hyperlipidemia
Thyroid nodule status post thyroidectomy
Resultant hypothyroidism
AAA
Ongoing tobacco use
Obesity
MARLEY
Forgetfulness
DNR CODE STATUS
ECHO 12/18/24: Mild concentric LVH, EF 70 to 75%, normal RV, trace TR PASP 30 to 35 mmHg
Plan:
- It looks like we finally hit the limit of diuresis and she is having some hypotension. I have no objection to a 250 cc to 500 cc fluid bolus.
-Please transfuse if hemoglobin is less than 7. IV iron is noted.
- Kidney function has remained stable
-Chest x-ray 12/25 w/ pulm edema/HF, proBNP 12/26 1380 (was 1989 on admit)
- Continue midodrine as needed. Thankfully her hypotension is asymptomatic
-renal fxn stable BUN/creat 21/0.8 12/26. K 3.7 12/26.
-will increase KCl to 20 meq TID
-EF 70-75% by echo this admission.
-Outpatient dose of Lopressor 50 mg BID changed to Toprol XL 50 mg BID 12/24/2024. Dose reduced to Toprol 25 mg bid due to lower BPs
-Patient was not taking EDMUNDO/ARB/ARNI/aldosterone antagonist prior to admission. Cannot add due to hypotension
-Remains on O2, decreased to 1L 12/24 but back on 2L 12/25. Desaturated to 84% off O2 with activity with PT 12/24. Sat returned to 92% on 1 L NC. Patient was not using supplemental oxygen prior to admission. Continue to try to wean. Spoke with
ceci Wyman on phone who reports home O2 sat had been in low 90s prior to admission.
-compression stockings to LEs
-increase physical activity/OOB
-Patient with new Afib at [facility] last week and then atrial flutter on admission here.
-Outpatient dose of Eliquis 5 mg BID (age 79, Cre 0.8) has been continued. Of note, Eliquis held 12/19/24 for dropping Hgb, but resumed with stable Hgb.
-Amiodarone added for adjunct rate control this admission, patient received 6 gram load as of 12/23/24 AM. Currently ordered amiodarone 200 mg BID. Plan is for amiodarone 200 mg BID until 01/05/25 and then transition to amiodarone 200 mg daily
thereafter
-decreased Toprol to 25 mg bid due to hypotension
- Eventual outpatient CV pending improvement in respiratory status and after 4 weeks uninterrupted OAC
-QTc 418 ms by ECG 12/22/24
-Tele reviewed, by me, afib/flutter, HRs 70-110s. No palpitations.
-Outpatient dose of Cardizem CD 360 mg daily stopped this admission
-Peak troponin 0.037 managed as a nonischemic myocardial injury Troponin elevation
Progress Note - Beef Lugger
Subjective
Date of Service: December 27, 2024
Moved to the IMU for asymptomatic hypotension
Objective
Labs:
12/27/24 04:08
12/27/24 04:08
Labs
Hgb 7.6 g/dL (12.0-16.0) L 12/27/24 04:08
Hct 25.3 % (37.0-47.0) L 12/27/24 04:08
Plt Count 225 10^3/uL (130-400) 12/27/24 04:08
Sodium 141 mmol/L (135-145) 12/27/24 04:08
Potassium 3.9 mmol/L (3.5-5.1) 12/27/24 04:08
BUN 20 mg/dl (7-17) H 12/27/24 04:08
Creatinine 0.9 mg/dL (0.6-1.0) 12/27/24 04:08
Glucose 83 mg/dl (70-99) 12/27/24 04:08
Vital Signs and I&O:
Vital Signs
Temp Pulse Resp BP Pulse Ox
97.7 F 106 23 86/55 92
12/27/24 02:27 12/27/24 10:00 12/27/24 10:00 12/27/24 10:00 12/27/24 10:00
Vital Signs
Temp Pulse Resp BP Pulse Ox
97.7 F 106 23 86/55 92
12/27/24 02:27 12/27/24 10:00 12/27/24 10:00 12/27/24 10:00 12/27/24 10:00
Intake & Output
12/25/24 12/26/24 12/27/24 12/28/24
06:59 06:59 06:59 06:59
Intake Total 960 / 960 480 / 480
Balance 960 / 960 480 / 480
Physical Exam
Physical Exam
����Physical Exam
���������������������General:��no apparent distress, not acutely ill
���������������������������Neck:��supple. no meningeal signs. normal psoterior pharynx
������������������������
���������������������������Heart:��s1/s2 regular rate and rhythm, no murmur. equal radial pulses.
��������������������������Lungs: ��no acute respiratory distress. clear bilaterally
����������������������Abdomen:�normal bowel sounds. not tender. no CVAT
��������������������������Neuro:��alert and oriented. no focal neurological deficits
������������������������������Skin: ��no rash
�����������������������Psychiatric:�well kept. interactive and cooperative
�����������������������Extremities:��no edema. no calf tenderness. negative homans. good distal pulses
--- NOTE | 2024-12-27 10:51 | CM ---
Patient seen at bedside in IMU. Patient from [facility], plan to return to SNF when medically appropriate. Patient sleeping in room. CM will continue to follow for discharge planning needs.
Plan; return to SNF; when medically appropriate.
[2024-12-27] MEDS: TOPROL XL PO (11:09)
[2024-12-27] MEDS: FERRLECIT 110 MG IV (12:47)
[2024-12-27] MEDS: ProAmatine PO (17:59)
[2024-12-27] MEDS: TOPROL XL 25 MG PO (20:53)
--- NOTE | 2024-12-27 22:22 | PTCARENOTE ---
Assumed care of patient from foxprhortensia RN. Pt aaox3. Sinus tach on monitor, hr 80-110s this shift. Pt is 92% on 6L NC. GRIS medications administered (see MAR). Assessment and vitals as documented. Pt resting in bed with call garrett in reach.
[2024-12-28] VITALS (10 sets, daily range): BP systolic 101–135; BP diastolic 57–84; BMI 47.1
[2024-12-28] MEDS: SYNTHROID 175 MCG PO (03:20)
[2024-12-28 03:55] LABS: Hematocrit 25.9 % (37.0-47.0); Hemoglobin 7.7 g/dL (12.0-16.0); Mean Corp Hgb Conc. 29.7 g/dL (33.0-37.0); Mean Corpuscular Hgb 26.3 pg (27.0-31.0); Mean Corpuscular Volume 88.4 fL (81.0-99.0); Mean Platelet Volume 12.6 fL (7.4-10.4); Platelet Count 268 10^3/uL (130-400); Red Blood Cell Count 2.93 10^6/uL (4.20-5.40); Red Cell Dist. Width 22.8 % (11.5-14.5); White Blood Cell Count 11.3 10^3/uL (4.8-10.8)
[2024-12-28 04:12] LABS: Blood Urea Nitrogen 17 mg/dl (7-17); Calcium 8.9 mg/dl (8.4-10.2); Carbon Dioxide 39 mmol/L (22-30); Chloride 99 mmol/L (98-107); Estimated Creatinine Clearance 70 ml/min; Glucose 85 mg/dl (70-99); Potassium 4.1 mmol/L (3.5-5.1); Sodium 141 mmol/L (135-145); eGFR > 60.00
[2024-12-28] MEDS: DUONEB 3 ML INH ×3 (07:20→15:35)
--- NOTE | 2024-12-28 09:38 | W.PN.HOSP.TC ---
Today's Communication/Plan
-
Resume Lasix orally if okay with cardiology
Discharge planning
Assessment / Plan
Assessment / Plan
Gen-AAOx3, NAD
HEENT-NC, AT, anicteric, clear oral mm
Neck-supple
CV-reg, no M, +S1/S2
Lungs-clear B/L
Abd-soft, NT, ND
Ext-no edema
Musculoskeletal-no cyanosis, clubbing
Skin-warm and dry
Neuro-grossly non-focal
Psych-calm, cooperative
Acute on chronic hypoxic/hypercapnic respiratory failure -suspect multifactorial etiology including underlying obesity hypoventilation, MARLEY, pulmonary edema from heart failure, bronchitis, etc.
Admitted with acute on chronic hypoxic/hypercapnic respiratory failure 12/18/24
No oxygen use at home. Oxygenation adequate on 3 L nasal cannula today.
Worsening CHF based on CXR on 12/25/24 -- continue Lasix IV 40 mg BID (was previously on IV 80 mg BID, but this was stopped due to hypotension, now lower dose IV Lasix resumed given CXR findings 12/25+increased O2 requirements)
ABG noted, PCO2 75, PO2 66, bicarb 52, pH 7.4. 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
Does not normally use oxygen at home. Was using CPAP at home for the past 7 months.
Recently hospitalized at [facility] ~7 days prior to presentation, discharged ~2 days prior to presentation, with transition to BiPAP. Discharged to [facility]. Subsequently admitted to our hospital for hypoxia.
New onset of cough productive of phlegm, yellow and green, ~2 days prior to presentation. Denied fevers or chills. Reportedly did not get antibiotics in outside hospital. Clinically doubt pneumonia.
She is afebrile, WBC count is normal. Completed ~5-day course of doxycycline for suspected bronchitis.
Patient denies history of COPD and states that her outpatient general assembler installer worked her up and told her that she does not have COPD despite lifelong smoking.
Continue outpatient BiPAP therapy at nighttime and with naps
Acute on chronic heart failure preserved ejection fraction exacerbation
-clinically improving on IV Lasix. Echocardiogram shows LVEF 70 to 75%, normal RV size and function, trace tricuspid regurgitation.
Blood pressure improved with midodrine 5 mg 3 times daily.
-Appreciate cardiology
-Can't add EDMUNDO/ARB/ARNI/aldosterone antagonist due to hypotension
Anticipate resuming Lasix orally, discussed with cardiology.
Hypotension associated with fatigue and tiredness
- Midodrine ordered
- Despite Midodrine, hypotension persists --> blood pressure now gradually improving after holding Lasix (last dose Lasix was 12/26/24 evening)
- Spoke with umbrella finisher Dr. Rosario: we probably finally hit the overdiuresis wall, hold ALL Lasix for now and resume P.O. Lasix in a day or two
- If hypotension persists despite holding Lasix and potential IV fluid bolus, consider increasing Midodrine to 10 mg
Acute on chronic anemia
-Component of acute blood loss anemia with heme positive stools, dark stools noted. Suspect acute blood loss anemia exacerbated by chronic anticoagulation with Eliquis. Suspect possible GI bleed. She does have a history of diverticulosis and
diverticular bleeding is a possibility. Hemodynamically stable. Hemoglobin stable at 7.7 today. Eliquis was held but then resumed this hospitalization.
-Hold off on consulting GI as she is in acute heart failure and unlikely she will qualify for endoscopic evaluation, but will eventually need to do so. She states she was scheduled for colonoscopy prior to admission. Her last colonoscopy was 10
years ago, showing diverticular disease.
-Iron Studies ordered showing iron deficiency anemia with low ferritin and low % saturation
-IV iron ordered 12/27/24
-Still awaiting bowel movement to check stool occult blood
-If Hgb dropping still going into 12/28/24, consider GI consult
-Transfuse PRBC if Hgb<7 (I discussed with umbrella finisher Dr. Rosario and this is an acceptable threshold for transfusion)
Acute bronchitis
- no evidence of pneumonia clinically. Completed course of doxycycline and steroids. Continue inhalers.
Rapid atrial flutter
Paroxysmal Atrial Fibrillation
Admission to [facility] for new A-fib and CHF, d/c'd to [facility] 12/16/2024
- Was previously on Cardizem Drip, now off. Also, outpatient dose of Cardizem CD 360 mg daily stopped this admission.
- Patient had new Afib at [facility] recently and then atrial flutter on admission here.
- now rate controlled. Started on amiodarone by cardiology -- received Amiodarone load; plan is for amiodarone 200 mg BID until 01/05/25 and then transition to amiodarone 200 mg daily thereafter
- Continue metoprolol -- beta brittny dose reduced to Toprol 25 mg bid (instead of 50 mg BID) given hypotension
- Continue Eliquis.
- Will be considered for outpatient cardioversion after patient has been anticoagulated for 3 to 4 weeks
- Monitor QTc while on Amiodarone -- QTc okay so far
Hypertension
- Currently HYPOtensive (see above)
Hyperlipidemia
- Continue Lipitor
Troponin elevation
- possibly due to acute nonischemic myocardial injury.
Hypernatremia
- Resolved
Tobacco dependence
-cessation advised.
MARLEY
-previously on CPAP at home, transitioned to BiPAP on discharge a few days prior to presentationfrom [facility]. Patient states that the mask did not fit her well in the [facility] which likely contributed to the hypoxic event prompting
her admission.
Hypothyroidism
-continue levothyroxine. History of thyroidectomy. TSH 8.0, free T4 0.86. Hold off on making any changes to levothyroxine dose. Need to ensure that she is taking it properly on an empty stomach, first thing in the morning, apart from food or
other medications. Recheck TFTs outpatient.
Morbid obesity due to excess calories
Stage 2 Sacral Decubitus Wound [facility]
Left hip with dry, healed abrasion [facility]
Left heel stage 1 Pressure Injury [facility]
-Continue wound care
Thyroid nodule status post thyroidectomy
Resultant hypothyroidism
AAA
DNR/DNI -confirmed with patient and niece.
Dispo -appears stable to go to rehab. Await cardiology input. Updated sister on the phone.
Anticipated Discharge: Today
Subjective/Interval History
-
Date of Service: December 28, 2024
Patient seen and examined. Denies shortness of breath.
Objective Data
-
Labs:
Laboratory Results
12/28/24
03:31
WBC 11.3 H
Hgb 7.7 L
Hct 25.9 L
Plt Count 268
Sodium 141
Potassium 4.1
Chloride 99
Carbon Dioxide 39 H
BUN 17
Creatinine 0.8
Glucose 85
Calcium 8.9
Vital Signs:
Vital Signs
Temp Pulse Resp BP Pulse Ox
98.1 F 103 22 107/63 96
12/28/24 03:07 12/28/24 07:21 12/28/24 07:21 12/28/24 06:00 12/28/24 07:21
I&O
12/27/24 12/28/24 12/29/24
06:59 06:59 06:59
Intake Total 900 / 900
Balance 900 / 900
Review of Systems
-
History Source: Patient
All other systems: Reviewed and negative
[2024-12-28] MEDS: KCL 20 MEQ PO (09:41)
[2024-12-28] MEDS: ASPIR LOW (ENTERIC COATED) 81 MG PO (09:41)
[2024-12-28] MEDS: ELIQUIS 5 MG PO (09:41)
[2024-12-28] MEDS: LIPITOR 20 MG PO (09:42)
[2024-12-28] MEDS: NICODERM TRANSDERMAL 7 MG TRANSDERM (09:42)
[2024-12-28] MEDS: TOPROL XL 25 MG PO (09:43)
[2024-12-28] MEDS: ProAmatine 5 MG PO ×2 (09:43→11:54)
[2024-12-28] MEDS: PACERONE 200 MG PO (09:45)
--- NOTE | 2024-12-28 10:13 | W.PN.CARDCBS ---
Addendum entered and electronically signed by Gus Amador MD 12/28/24 14:36:
79-year-old patient of Dr. Gus Guevara admitted December 17 with heart failure with preserved EF and atrial fibrillation/flutter after recent hospital stay at [facility]. During his hospital stay she has been diuresed close to 30 pounds.
PMH/PSH: Hypertension, hyperlipidemia, abdominal aortic aneurysm, tobacco use, obesity, sleep apnea
Medications: Apixaban 5 mg a day, aspirin 81 mg a day, atorvastatin 20 mg a day, levothyroxine 175 mcg daily, nicotine, 7 mg daily, DuoNebs, amiodarone 200 mg twice daily, midodrine 5 mg 3 times daily, metoprolol ER 25 mg twice daily, iron,
furosemide 80 mg orally a.m., 40 mg orally p.m., potassium 20 mill equivalents daily, MiraLAX, dapagliflozin 10 mg a day
101/70, pulse 106, respiratory rate 22, sats 97%, weight is 116.7 kg, on admission was 133 kg, head neck exam is unremarkable, lungs are diminished in bases, tachycardic and regular, JVD okay, abdomen obese, mild edema
White count is 11.3, hemoglobin is 7.7 CO2 is 39, potassium is 4.1, BUN/creatinine are 17 and 0.8, ABG on 3 L, 7.5, PCO2 58, PO2 63, bicarb is 45
Impression:
As below per Nichole Unger, reviewed in detail and agree unless specifically noted otherwise
Plan:
Oral furosemide, 80 in the a.m. and 40 in the p.m.
Consider Diamox, for now we will hold off, acid-base status is actually improved prior to prior gas
Add Farxiga
Consider outpatient cardioversion in several weeks
Okay for discharge
Recommended cardiac medications at discharge:
Apixaban 5 mg twice daily
Atorvastatin 20 mg a day
Levothyroxine 175 mcg daily
Amiodarone 200 mg twice daily for 4 weeks, then 200 mg a day or per Dr. Guevara
Furosemide 80 mg in a.m. and 40 mg in p.m.
Potassium 20 mill equivalents twice daily
Farxiga 10 mg daily
Would stop aspirin
Please check BMP 1 week
Follow-up to Dr. Guevara
Original Note:
Today's Communication / Plan
-
transition to oral Lasix
IV iron supplementation
check f/u BMP 1 week after discharge
consider CV after 4 weeks uninterrupted OAC which would be after 01/17/2025
f/u arranged with outpt java solutions architect, Dr Guevara
Impression / Plan
-
Primary Assembly Line Machine Operator: Dr. Guevara of [facility], last visit 12/2023
Impression:
Admitted with acute on chronic hypoxic/hypercapnic respiratory failure 12/18/24
Typical atrial flutter with RVR on admission
Paroxysmal Afib
Chronic Eliquis OAC
Acute HFpEF
Acute on chronic hypoxic/hypercapnic respiratory failure on BiPAP
Elevated troponin, suspected non ischemic myocardial injury
Admission to [facility] for new A-fib and new CHF, [facility]
Hypertension
Hyperlipidemia
Thyroid nodule status post thyroidectomy
Resultant hypothyroidism
AAA
Ongoing tobacco use
Obesity
MARLEY
Forgetfulness
DNR CODE STATUS
ECHO 12/18/24: Mild concentric LVH, EF 70 to 75%, normal RV, trace TR PASP 30 to 35 mmHg
Plan:
-wt down 36 lbs since admission. Hypotensive 12/27 and Lasix held. Was transferred to IMU for hypotension 12/27 with plan for IVFs but BP improved and did not require IVF. Last dose diuretic 12/26 pm.
-will transition to oral diuretics. Previously on Lasix 40 mg bid, will increase to Lasix 80 mg in am, 40 mg in pm.
-will decrease potassium supplement to 20 meq bid since lowering Lasix dose
-check BMP one week after discharge
-remains on O2 at 3L, has not been able to wean over course of hospitalization. Pt not using supplemental O2 prior to admission.
-creat 0.8 12/28 and has remained stable throughout hospitalization
-Toprol previously decreased due to lower BPs. Now on Toprol 25 mg bid.
-Patient was not taking EDMUNDO/ARB/ARNI/aldosterone antagonist prior to admission. Cannot add due to hypotension
-EF 70-75% by echo this admission
-compression stocking to LEs
- Continue midodrine. c/o positional dizziness w/ sitting/standing
-increase physical activity/OOB
-transfuse if hemoglobin is less than 7. IV iron started 12/27. Hgb 7.7 12/28
-Patient with new Afib at [facility] last week and then atrial flutter on admission here.
-Outpatient dose of Eliquis 5 mg BID (age 79, Cre 0.8) has been continued. Of note, Eliquis held 12/19/24 for dropping Hgb, but resumed with stable Hgb.
-Amiodarone added for adjunct rate control this admission, patient received 6 gram load as of 12/23/24 AM. Currently ordered amiodarone 200 mg BID. Plan is for amiodarone 200 mg BID until 01/05/25 and then transition to amiodarone 200 mg daily
thereafter
-decreased Toprol to 25 mg bid due to hypotension
- Eventual outpatient CV pending improvement in respiratory status and after 4 weeks uninterrupted OAC-advised close f/u with outpt java solutions architect, Dr Guevara, and apptmt made for 01/05/2025
-QTc 418 ms by ECG 12/22/24
-Tele reviewed, by me, afib/flutter, HRs 110s. No palpitations.
-Outpatient dose of Cardizem CD 360 mg daily stopped this admission
-Peak troponin 0.037 managed as a nonischemic myocardial injury Troponin elevation
Progress Note - Assembly Line Machine Operator
Subjective
Date of Service: December 28, 2024
transferred to IMU for concerns of hypotension, resolved with hold of diuretics 12/27
denies LH/dizziness
denies SOB
Objective
Labs:
12/28/24 03:31
12/28/24 03:31
Labs
Hgb 7.7 g/dL (12.0-16.0) L 12/28/24 03:31
Hct 25.9 % (37.0-47.0) L 12/28/24 03:31
Plt Count 268 10^3/uL (130-400) 12/28/24 03:31
Sodium 141 mmol/L (135-145) 12/28/24 03:31
Potassium 4.1 mmol/L (3.5-5.1) 12/28/24 03:31
BUN 17 mg/dl (7-17) 12/28/24 03:31
Creatinine 0.8 mg/dL (0.6-1.0) 12/28/24 03:31
Glucose 85 mg/dl (70-99) 12/28/24 03:31
Vital Signs and I&O:
Vital Signs
Temp Pulse Resp BP Pulse Ox
98.1 F 112 22 106/62 96
12/28/24 03:07 12/28/24 09:45 12/28/24 07:21 12/28/24 09:45 12/28/24 07:21
Vital Signs
Temp Pulse Resp BP Pulse Ox
98.1 F 112 22 106/62 96
12/28/24 03:07 12/28/24 09:45 12/28/24 07:21 12/28/24 09:45 12/28/24 07:21
Intake & Output
12/26/24 12/27/24 12/28/24 12/29/24
06:59 06:59 06:59 06:59
Intake Total 480 / 480 900 / 900
Balance 480 / 480 900 / 900
Physical Exam
Physical Exam
GEN: No distress, awake, Ox3
HEENT: supple, anicteric, mmm
LUNGS: rales bases
CV: Irreg, irreg, no murmur
ABD: soft, BS+, NT/ND
EXT: trace ankle edema
NEURO: Gross non-focal
SKIN: No rash
[2024-12-28] MEDS: LASIX 80 MG PO (11:31)
[2024-12-28] MEDS: MIRALAX 17 GRAMS PO (11:31)
[2024-12-28] MEDS: DULCOLAX 10 MG RECTAL (11:32)
[2024-12-28] MEDS: DESENEX/MITRAZOL/ZEASORB 1 APPLIC TOPICAL (11:43)
[2024-12-28] MEDS: FARXIGA 10 MG PO (11:54)
--- NOTE | 2024-12-28 11:55 | PTOTSP ---
Pt transferred to IMU 12/26 for higher level of care. PT/OT orders not continued upon transfer. Will need new orders to resume PT/OT.
[2024-12-28 12:04] LABS: Glucose - Point of Care 120 mg/dl (70-99)
[2024-12-28 12:50] LABS: B.E. 19.8 mmol/L; O2 Saturation % 95.1 % (94-98); PCO2 58 mmHg (32-35); PO2 63 mmHg (83-108)
[2024-12-28 12:53] LABS: HCO3 45.2 mmol/L (21-28)
--- NOTE | 2024-12-28 13:18 | W.DS.TRANS ---
DC Summary - Tail Trimmer
-
Discharge Instructions:
Discharge Diagnosis/Procedures Heart failure exacerbation, acute on chronic
anemia, rapid atrial flutter
Diet 2 Gram Sodium,Low Fat,Low Cholesterol
Activity As tolerated,With assistance
Driving Restrictions As prior to admission
Bathing Restrictions None
Blood Work check BMP one week after discharge
Instructions: *PCP/Other Front Desk Officer Heart Failure Instructions
Stand-Alone Forms:
Changes to Home Medications: No
Discharge Medications:
DC Medications w/original date entered in [employer]
apixaban 5 mg tablet 5 mg PO BID Blood Clot Prevention/Tx 12/18/24
aspirin 81 mg tablet 81 mg PO DAILY Blood Clot Prevention/Tx 12/18/24
atorvastatin 20 mg tablet 20 mg PO DAILY High Cholesterol 12/18/24
bisacodyl 10 mg rectal suppository 10 mg UT Q12 PRN constipation 12/18/24
levothyroxine 175 mcg tablet 175 mcg PO DAILY Thyroid 12/18/24
magnesium oxide 400 mg PO TID Supplement 12/18/24
amiodarone 200 mg tablet 200 mg PO BID #30 tabs 12/28/24
dapagliflozin propanediol 10 mg tablet 10 mg PO DAILY #0 tabs 12/28/24
docusate sodium 100 mg capsule 100 mg PO BID #0 caps 12/28/24
furosemide 40 mg tablet 40 mg PO DAILY@1600 #0 tabs 12/28/24
furosemide 80 mg tablet 80 mg PO DAILY #0 tabs 12/28/24
ipratropium 0.5 mg-albuterol 3 mg (2.5 mg base)/3 mL nebulization soln 3 ml inhalation R Q4HPRN PRN sob #0 mL 12/28/24
metoprolol succinate 25 mg tablet,extended release 24 hr 25 mg PO BID #0 tabs 12/28/24
midodrine 5 mg tablet 5 mg PO TID@0800,1300,1800 #0 tabs 12/28/24
nicotine 7 mg/24 hr daily transdermal patch 7 mg transdermal DAILY #0 ea 12/28/24
polyethylene glycol 3350 17 gram oral powder packet 17 g PO DAILY #0 ea 12/28/24
potassium chloride 20 mEq tablet,extended release(part/cryst) 20 meq PO BID #0 tabs 12/28/24
Home Medication Changes
Pending Results: No
--- NOTE | 2024-12-28 13:18 | CM ---
CM reviewed pt with Dr Amador and ready for dc
Pt will require bipap to be arranged at SNF
Settings sent to [facility] via [facility]
Bipap has been ordered and delivered to SNF per admissions
Bedside update to pt
IMM verbally reviewed, copy provided
Medical necessity completed as pt on new
Call with sister with update
Discharge Disposition- [facility] via BLS pickup 1530
Phone- [phone] Fax- [phone]
[2024-12-28] MEDS: FERRLECIT 110 MG IV (13:32)
--- NOTE | 2024-12-28 14:38 | W.DS.TRANS ---
DC Summary - Button Reclaimer
-
Discharge Instructions:
Discharge Diagnosis/Procedures Heart failure exacerbation, acute on chronic
anemia, rapid atrial flutter
Diet 2 Gram Sodium,Low Fat,Low Cholesterol
Activity As tolerated,With assistance
Driving Restrictions As prior to admission
Bathing Restrictions None
Blood Work check BMP one week after discharge
Instructions: *PCP/Other Hotel Night Auditor Heart Failure Instructions
Stand-Alone Forms:
Changes to Home Medications: Yes
Discharge Medications:
DC Medications w/original date entered in [employer]
apixaban 5 mg tablet 5 mg PO BID Blood Clot Prevention/Tx 12/18/24
atorvastatin 20 mg tablet 20 mg PO DAILY High Cholesterol 12/18/24
bisacodyl 10 mg rectal suppository 10 mg [place] Q12 PRN constipation 12/18/24
levothyroxine 175 mcg tablet 175 mcg PO DAILY Thyroid 12/18/24
magnesium oxide 400 mg PO TID Supplement 12/18/24
amiodarone 200 mg tablet 200 mg PO BID #30 tabs 12/28/24
dapagliflozin propanediol 10 mg tablet 10 mg PO DAILY #0 tabs 12/28/24
docusate sodium 100 mg capsule 100 mg PO BID #0 caps 12/28/24
furosemide 40 mg tablet 40 mg PO DAILY@1600 #0 tabs 12/28/24
furosemide 80 mg tablet 80 mg PO DAILY #0 tabs 12/28/24
ipratropium 0.5 mg-albuterol 3 mg (2.5 mg base)/3 mL nebulization soln 3 ml inhalation R Q4HPRN PRN sob #0 mL 12/28/24
metoprolol succinate 25 mg tablet,extended release 24 hr 25 mg PO BID #0 tabs 12/28/24
midodrine 5 mg tablet 5 mg PO TID@0800,1300,1800 #0 tabs 12/28/24
nicotine 7 mg/24 hr daily transdermal patch 7 mg transdermal DAILY #0 ea 12/28/24
polyethylene glycol 3350 17 gram oral powder packet 17 g PO DAILY #0 ea 12/28/24
potassium chloride 20 mEq tablet,extended release(part/cryst) 20 meq PO BID #0 tabs 12/28/24
Home Medication Changes
Stop aspirin
Stop diltiazem
Pending Results: No
[2024-12-28] MEDS: LASIX 40 MG PO (14:51)
== END 2024-12-28 16:09 | DRG 291 ==
LOC: IMU 08:02
PROVIDERS: Hospitalist; Internal Medicine Cardiovascular Disease; Nurse Practitioner; Physician Assistant; ADMITTING PHYSICIAN Internal Medicine; ATTENDING PHYSICIAN Hospitalist; CONSULT PHYSICIAN Internal Medicine Cardiovascular Disease; EMERGENCY PHYSICIAN Student in an Organized Health Care Education/Training Program
PROC: 5A09357 Assistance with Respiratory Ventilation, Less than 24 Consecutive Hours, Continuous Positive Airway Pressure (ICD-10-PCS; 2024-12-18)
DX: I11.0 Hypertensive heart disease with heart failure (principal); I50.31 Acute diastolic (congestive) heart failure; J96.21 Acute and chronic respiratory failure with hypoxia; J96.22 Acute and chronic respiratory failure with hypercapnia; I48.92 Unspecified atrial flutter; Z68.42 Body mass index [BMI] 45.0-49.9, adult; E66.2 Morbid (severe) obesity with alveolar hypoventilation; D62 Acute posthemorrhagic anemia; D68.32 Hemorrhagic disorder due to extrinsic circulating anticoagulants; E87.0 Hyperosmolality and hypernatremia; I5A Non-ischemic myocardial injury (non-traumatic); F17.200 Nicotine dependence, unspecified, uncomplicated; I71.40 Abdominal aortic aneurysm, without rupture, unspecified; E78.00 Pure hypercholesterolemia, unspecified; J20.9 Acute bronchitis, unspecified; E89.0 Postprocedural hypothyroidism; I48.0 Paroxysmal atrial fibrillation; J43.9 Emphysema, unspecified; L89.152 Pressure ulcer of sacral region, stage 2; L89.621 Pressure ulcer of left heel, stage 1; I95.9 Hypotension, unspecified; Z66 Do not resuscitate; Z96.651 Presence of right artificial knee joint; Z99.81 Dependence on supplemental oxygen; Z88.8 Allergy status to other drugs, medicaments and biological substances; Z79.82 Long term (current) use of aspirin; Z79.01 Long term (current) use of anticoagulants; Z79.890 Hormone replacement therapy; Z11.52 Encounter for screening for COVID-19; Z82.49 Family history of ischemic heart disease and other diseases of the circulatory system
CPT/HCPCS: 36600; 71045; 71046; 80048; 80053; 82728; 82805; 82962; 83540; 83550; 83735; 83880; 84439; 84443; 84484; 85025; 85027; 87045; 87046; 87070; 87077; 87427; 87449; 87502; 87811; 87899; 93005; 93306; 93970; 94640; 94660; 96365; 96366; 96375; 97116; 97163; 97167; 97530; 97535; 99285; J2916; Q9950

== ENCOUNTER 2025-05-18 17:53 | Inpatient (IN) | payer MEDICARE, BC, SELFPAY ==
[2025-05-18] VITALS (7 sets, daily range): BP systolic 131–167; BP diastolic 59–106; BMI 55.4
--- NOTE | 2025-05-18 14:37 | ED.GENMED ---
History of Present Illness
General
Chief Complaint: Cardiac Symptoms
Source: patient
Exam Limitations: none
Time Seen by Provider: 05/18/25 14:24
Nursing documentation reviewed up to this point in time: agreed with
History of Present Illness
History of Present Illness:
Patient is a 79-year-old female with history atrial fibrillation on Eliquis, AAA, congestive heart failure who presents to the emergency department with worsening shortness of breath. Patient states that she has had significant dyspnea on exertion
over the past 2 days with acute worsening today. She is extremely winded when just walking to the bathroom. She denies any shortness of breath when lying flat. She also reports increasing lower extremity swelling bilaterally over the past few
weeks. According to her visiting nurse�she has gained 15 pounds since Saturday.
Patient denies any chest pain. She denies any fever or productive cough. No recent falls or trauma. No abdominal pain.
Her visiting nurse was at her home today for a scheduled visit when she noticed significant dyspnea and weight gain ultimately recommending evaluation in the emergency department.
She is compliant with her Eliquis.
Review of Systems
Review of Systems
Allergies reviewed?: Yes
All Other Systems: ROS reviewed and negative except as documented in HPI and ROS
Phy Exam
Physical Exam
Physical Exam:
Vitals: Patient's vital signs are stable. Afebrile
General: Patient is well appearing, no acute distress
Skin: Warm and dry, no rashes or lesions
Head: Normocephalic, atraumatic
Eyes: Sclera nonicteric.
Neck: Normal ROM, no cervical spine tenderness, no meningismus. No JVD
Cardiac: Regular rate and rhythm, no murmurs.
Pulm: Decreased breath sounds bilaterally with bibasilar rales. No wheeze
Abdomen: Soft and nontender
Extremities: Pitting edema bilateral lower extremities
Neuro: AAOx3. Grossly intact
Psychiatric: Normal affect.
Course
Orders/Labs/Results
Orders:
Orders
05/18/25 14:28
EKG [Electrocardiogram (*1)] Urgent
Reason for Study: Shortness of Breath
05/18/25 14:29
EKG- Treatment ONCE
05/18/25 14:31
Complete Blood Count/With Diff Urgent
Comprehensive Metabolic Panel Urgent
Ferritin Urgent
Comment: ADD ON
Iron Urgent
Comment: ADD ON
Magnesium Urgent
Comment: ADD ON
NT-proBNP Urgent
Phosphorus Urgent
Comment: ADD ON
Total Iron Binding Urgent
Comment: ADD ON
Troponin I Urgent
05/18/25 14:36
CR Chest - 2 Views Urgent
Comment:
Reason For Exam: SOB
05/18/25 14:39
Add On- LAB Urgent
Tests Added?: troponin
05/18/25 Dinner
Cholesterol Lowering
At Your Request: Limited Participation
Does patient need a safe tray?: No
Fluid Restriction: 1200 mL/day (40 oz)
Cholesterol Lowering: Sodium, 2 Gram
05/18/25 15:18
Add On- LAB Urgent
Tests Added?: magnesium, serum PTH, phosphate
05/18/25 15:44
Calcium Carbonate/Vitamin D3 [Oscal 500 + D] 500 mg PO NOW STA
Furosemide [Lasix] 40 mg IV ONCE ONE
Potassium Chloride [KCl] 40 meq PO NOW STA
05/18/25 16:13
Calcium Gluconate 1 gram/100mL [Calcium Gluconate] 1 gram in 100 ml IV ONCE
Magnesium Sulfate 2 Gram/50 ml [Magnesium Sulfate] 2 gram in 50 ml IV NOW
Potassium Chloride [KCl] 40 meq PO NOW STA
05/18/25 17:00
Add On- LAB Urgent
Tests Added?: ferritin tibc iron
05/18/25 17:15
Admit/Transfer Patient As Directed
Co-Sign Provider:
Level of Care: Inpatient admission
Assign to:: Telemetry
Physician / Group: laurie jiménez
Diagnosis: acute/chronic chf/hypoxia, hypomag,hypoK, hypoca, anemia susp irondef
Reason for Telemetry: Subacute Heart Failure
Date to Stop Telemetry: 05/20/25
Time to Stop Telemetry: 11:00
Reason for Hospitalization: acute/chronic chf/hypoxia, hypomag,hypoK, hypoca, anemia susp irondef
Expected length of stay greater than two midnights?: Yes
ELOS- Estimated Length of Stay in days: 5
I certify the patient meets the requirements for IP care: Yes
Code Status As Directed
Resuscitation Status: Do not resuscitate
Reached after discussion with pt or family/Healthcare POA: Yes
Based on pt advanced directive or healthcare POA form: Yes
Decision communicated with: per pt
DNR Bracelet Application ONCE
05/18/25 17:20
PRN Pain Medication Management As Directed
May give lesser potent ordered pain med per pt: Yes
preference::
Protocol:: Medication orders for pain may be administered in a
manner that supports deferring to patient preference
when the pt is:
- Requesting an ordered lesser potent pain medication.
Least to most potent pain medications are defined
as: acetaminophen < NSAID < tramadol < opioids
(morphine, oxycodone, hydromorphone).
- Requesting a lesser dose of the same medication IF
ORDERED.
- Requesting a less intrusive route of administration
if both routes are prescribed by the provider (PO <
IV).
05/18/25 17:25
CARDIOLOGY CONSULT Routine
Consulting Provider: Robinson Love
Was physician already notified: Yes
Reason for consult: chf acute chronic
05/18/25 19:00
Acetaminophen [Tylenol] 650 mg PO Q4HPRN PRN
Bisacodyl [Dulcolax] 10 mg RECTAL [id number] PRN
Docusate W/Senna [Senokot-S] 1 tablet PO BIDPRN PRN
Ipratropium/Albuterol Sulfate [Duoneb] 3 ml INH R Q4HPRN PRN sob
Polyethylene Glycol Powder [Miralax] 17 grams PO DAILYPRN PRN
05/18/25 19:00
VTE Contraindication Routine
VTE Mechanical Device Contraindication: Medical Contraindication
Pharmocologic Contraindication: Medical Contraindication
Comment: pt on eliquis
Activity As Directed
Activity Level: With Assistance
Intake/ Output As Directed
Frequency: Per unit guidelines
Vital Signs As Directed
Frequency: Per unit guidelines
Weight As Directed
Frequency: Daily
O2 Therapy [RESP] Routine
Nasal Cannula Liter Flow: 1 LPM
Titrate/Wean O2 to maintain O2 sat greater than (%): 91
Pulse Ox/spot Check [RESP] Routine
Quantity: 1
Ot Eval And Treat Routine
Pt Eval And Treat Routine
Activity Level: With Assistance
05/18/25 20:00
Apixaban [Eliquis] 5 mg PO BID
Fluticasone/Salmeterol 115/21 [Advair Hfa 115/21 Mcg Inhaler] 2 puff INH R BID
Metoprolol Xl [Toprol Xl] 25 mg PO BID
Midodrine [ProAmatine] 10 mg PO TID@0800,1300,1800
05/19/25 01:00
Troponin I Q6H
05/19/25 06:00
Levothyroxine [Synthroid] 175 mcg PO DAILY@0600
05/19/25 06:20
Cardiovascular Evaluation IN AM
Complete Blood Count/With Diff IN AM
Comprehensive Metabolic Panel IN AM
Magnesium IN AM
05/19/25 08:00
Amiodarone [Pacerone] 200 mg PO DAILY
Atorvastatin [Lipitor] 20 mg PO DAILY
Furosemide [Lasix] 40 mg IV BID AT 0800,1600
05/20/25 06:00
Complete Blood Count/With Diff IN AM
Comprehensive Metabolic Panel IN AM
05/20/25 11:00
DC Protocol for Telemetry ONCE
05/21/25 06:00
Complete Blood Count/With Diff IN AM
Comprehensive Metabolic Panel IN AM
05/22/25 06:00
Complete Blood Count/With Diff IN AM
Comprehensive Metabolic Panel IN AM
Abnormal Lab Results
05/18/25
14:31
WBC 13.4 H 10^3/uL
(4.8-10.8)
RBC 3.97 L 10^6/uL
(4.20-5.40)
Hgb 8.8 L g/dL
(12.0-16.0)
Hct 31.5 L %
(37.0-47.0)
MCV 79.3 L fL
(81.0-99.0)
MCH 22.2 L pg
(27.0-31.0)
MCHC 27.9 L g/dL
(33.0-37.0)
RDW 21.9 H %
(11.5-14.5)
Abs Immat Gran (auto) 0.2 H 10^3/uL
(0-0.05)
Absolute Neuts (auto) 9.9 H 10^3/uL
(1.4-6.5)
Absolute Monos (auto) 1.8 H 10^3/uL
(0.1-0.6)
Immature Gran % 1.5 H %
(0-0.5)
Lymphocytes % 9.5 L %
(20.5-51.1)
Monocytes % 13.6 H %
(1.7-9.3)
Potassium 3.3 L mmol/L
(3.5-5.1)
Chloride 113 H mmol/L
(98-107)
BUN 28 H mg/dl
(7-17)
Calcium 6.4 L* mg/dl
(8.4-10.2)
Magnesium 1.5 L mg/dl
(1.6-2.3)
Iron 22 L ug/dl
(37-170)
% Saturation 6 L %
(20-50)
Troponin I 0.072 H* ng/ml
Total Protein 5.3 L g/dl
(6.3-8.2)
Albumin 2.9 L g/dl
(3.5-5.0)
PTH Intact 99.5 H pg/ml
(14.5-75.2)
05/18/25 14:31
05/18/25 14:31
Vital Signs
Initial and Last Documented VS:
Initial Vital Signs
BP
149/75
05/18/25 14:26
Last Documented Vital Signs
Temp Pulse Resp BP Pulse Ox
97.8 F 72 16 102/54 91
05/19/25 07:25 05/19/25 08:00 05/19/25 08:00 05/19/25 08:57 05/19/25 08:00
MDM/Problems Addressed
Differential Diagnosis Includes:
Not limited to: Acute CHF exacerbation, COPD exacerbation, atrial fibrillation with rapid ventricular response, pneumonia, bronchitis, anemia, etc.
MDM/Problems Addressed:
79-year-old female with history as documented presenting with a few days of progressively worsening dyspnea on exertion associated with weight gain and significant bilateral lower extremity swelling. No fevers, productive cough chest pain. Patient
mildly tachypneic on arrival otherwise has stable vital signs. Her O2 saturation is in the low 90s on room air. She is not tachycardic. On exam, patient appears nontoxic. Heart regular rate and rhythm. She has decreased breath sounds
bilaterally with bibasilar rales. Significant pitting edema of bilateral lower extremities noted. No evidence of superimposed cellulitis.
Differential as above. Clinical picture consistent with possible acute exacerbation of congestive heart failure. May have component of COPD exacerbation, as well. Lower suspicion for infectious process as she is afebrile without cough.
ED plan: Labs, cardiac enzyme, BNP, chest x-ray.
Update: Labs reveal leukocytosis and stable anemia. Chemistry reveals mild hypokalemia and significant hypocalcemia of 6.4 however with associated hypoalbuminemia this does correct to 7.3. Will check magnesium, PTH and phosphorus level. Troponin
elevated to 0.072 which I suspect to be secondary to demand ischemia. BNP of 1600. Chest x-ray reveals cardiomegaly with small bilateral pleural effusions and mild interstitial edema.
Overall impression is likely acute CHF exacerbation. Given significant dyspnea on exertion and associated electrolyte abnormalities�patient will require admission for IV diuresis and electrolyte replenishment. Will give p.o. potassium and calcium
in ED. 40 IV Lasix given. Patient accepted to hospital service for continued management.
Chronic conditions affecting care:
Congestive heart failure, atrial fibrillation on Eliquis, COPD
Acute Exacerbation and/or Progression of Chronic Illness:
Acute CHF exacerbation
*Radiology
Radiology exam reviewed: preliminary read by ED provider (Chest x-ray reviewed by co-small bilateral pleural effusions) and radiology read reviewed
*Pulse Oximetry
SaO2: 93
Oxygen Mode of Delivery: Room air
Patient hypoxic: yes
*EKG
Interpreted by ED Provider?: Yes
EKG Intrepretation Date: 05/18/25
Interpretation: abnormal
Comparison EKG: changes noted
Heart Rate: 57
Rate: bradycardiac
Rhythm: sinus
[place]: normal axis
Interval: normal QT interval
QRS Pattern: low voltage
Ischemia: non-specific ST changes
*Credit Rating Checker Interpretation
Rate: normal
Interpretation: normal
Heart Rate: 67
Rhythm: sinus
*Critical Care Note
Total Time (30-74mins, 75-104mins- exclusive of procedures): Not Applicable
Patient Management
Discussion with other providers: Hospitalist
ED Attending Note
-
Portions of this chart may have been created with voice recognition software.� Occasional wrong word or��sound alike� substitutions may have occurred due to the inherent limitations of voice recognition software.
Discharge Plan
Departure
Patient Disposition: Admit
Date of Disposition: 05/18/25
Time of Disposition: 15:49
Presentation/result/management discussed w/ accepting MD/DO: Hospitalist
Discharge Problem:
Acute exacerbation of CHF (congestive heart failure), Hypocalcemia
Interventions
Interventions:
*Risk Screen - Suicide Last Done: 05/18/25 21:27
*General Assessment Last Done: 05/18/25 14:27
*Neglect/Abuse Screening Last Done: 05/18/25 14:27
*ED- Fall Risk Assessment Last Done: 05/18/25 14:27
*ED COVID-19 Vaccine History Last Done: 05/18/25 14:29
*ED Influenza Vaccine History Last Done: 05/18/25 14:29
*Nursing Disposition Last Done: 05/18/25 19:04
ED- Pulmonary Assessment Last Done: 05/18/25 14:30
ED- Cardiac Assessment Last Done: 05/18/25 14:30
Discharge Date and Time
Discharge Date/Time: 05/18/25 19:05
[2025-05-18 15:08] LABS: ALT (SGPT) 21 U/L (0-35); AST (SGOT) 30 U/L (14-36); Albumin 2.9 g/dl (3.5-5.0); Alkaline Phosphatase 87 U/L (38-126); Blood Urea Nitrogen 28 mg/dl (7-17); Calcium 6.4 mg/dl (8.4-10.2); Carbon Dioxide 24 mmol/L (22-30); Chloride 113 mmol/L (98-107); Estimated Creatinine Clearance 80 ml/min; Glucose 70 mg/dl (70-99); Potassium 3.3 mmol/L (3.5-5.1); Sodium 140 mmol/L (135-145); Total Protein 5.3 g/dl (6.3-8.2); eGFR > 60.00
[2025-05-18 15:21] LABS: Troponin I 0.072 ng/ml
[2025-05-18 15:31] LABS: Hematocrit 31.5 % (37.0-47.0); Hemoglobin 8.8 g/dL (12.0-16.0); Mean Corp Hgb Conc. 27.9 g/dL (33.0-37.0); Mean Corpuscular Volume 79.3 fL (81.0-99.0); Nucleated Red Blood Cells % 0.1 %; Platelet Count 306 10^3/uL (130-400); Red Cell Dist. Width 21.9 % (11.5-14.5)
[2025-05-18 15:55] LABS: Anisocytosis 1+; Macrocytosis 1+; Normal RBC Morphology No
[2025-05-18 15:56] LABS: Hypochromasia 2+; Ovalocytes Slight; Polychromasia Slight
[2025-05-18 15:58] LABS: Magnesium 1.5 mg/dl (1.6-2.3)
--- NOTE | 2025-05-18 16:06 | W.PN.UPDATE ---
Update Note
Progress Note Update
This note serves as an addendum to the H&P by corporate traffic manager ANYA�
Lizeth Usha
HPI�
79F Extreme Obesity ( BMI 58) HX chr HFpEF, HX A Fib
- seen at ER for worsening shortness of breath
- significant dyspnea with minor exertion over the past 2 days with acute worsening today.
- denies orthopnea
- increasing lower extremity swelling bilaterally over the past few weeks.
- According to herVN �she has gained 15 pounds since Saturday.
- denies any chest pain
- no recent falls or trauma.
- No abdominal pain.
- compliant with Eliquis.
PHX
A fibrillation/flutter, chr HFpEF
Hypertension, hyperlipidemia, abdominal aortic aneurysm, tobacco use, obesity, sleep apnea
12/27/24
06:00 12/28/24
03:33 05/18/25
14:25
Actual Weight 116.2 kg 116.709 kg ( +27.7 kg = 60 lbs) 144.4 kg
05/18/25
14:30 05/18/25
14:30 05/18/25
14:39
SaO2 94 93 93
Oxygen Mode of Delivery Room air Room air Room air
Reviewed VS:
Temp Pulse Resp BP Pulse Ox
98.4 F 57 22 131/106 91
05/18/25 14:42 05/18/25 16:15 05/18/25 16:15 05/18/25 16:00 05/18/25 16:15
PE
Gen: NAD Extrem obesity
Neck: supple
Lungs: bibasilar rales, no wheeze
Cor: RRR S1 S2
Abdomen:�Soft and non tender
HARM REDUCTION WORKER: AAO3
MS: Pitting edema bilateral lower extremities
Relevant Data�
12/28/24 05/18/25
03:31 14:31
WBC 13.4 H
Hgb 7.7 L 8.8 L
MCV 88.4 79.3 L
05/18/25
14:31
Potassium 3.3 L
Chloride 113 H
BUN 28 H
Creatinine 0.8
eGFR > 60.00
Calcium 6.4 L- Corrected Ca 7.3
Phosphorus 3.3
Magnesium 1.5 L
Troponin I 0.072 H*
Hjg-O-Tcdfdypfaor Pept 1600
Albumin 2.9 L
12/27/24 12/28/24 05/18/25
04:08 03:31 14:31
Carbon Dioxide 39 H 39 H 24
EKG
SINUS BRADYCARDIA
LOW VOLTAGE QRS
NONSPECIFIC ST AND T WAVE ABNORMALITY
ABNORMAL ECG
WHEN COMPARED WITH ECG OF 22-Dec-2024 13:45,
SINUS RHYTHM HAS REPLACED ATRIAL FLUTTER
VENT. RATE HAS DECREASED by 32 bpm
NONSPECIFIC T WAVE ABNORMALITY, IMPROVED IN INFERIOR LEADS
Confirmed by KAYLA GARCIAS MD ([id number]) on 05/18/2025 3:06:08 PM
CXR
Cardiomegaly with small bilateral pleural effusions and likely mild interstitial edema.
12/18/24 TTE
1. Left ventricle: Normal size with mild concentric LVH.
The estimated ejection fraction is 70-75% by Salcedo's method of discs.
2. Right ventricle: Normal size and function
3. Atria: Normal
4. Mitral valve: No mitral regurgitation.
Mitral annular calcification is noted.
5. Aortic valve: Trileaflet. No aortic stenosis or aortic insufficiency
6. Tricuspid valve: Trace tricuspid regurgitation with estimated pulmonary artery systolic pressures of 30-35 mmHg
7. No prior studies for comparison
Last hospitalist admission: 12/18/2024 - 12/28/2024
DX DC:
1. Acute on chronic hypoxic hypercapnic respiratory failure.
2. Acute on chronic heart failure with preserved ejection fraction.
3. Acute on chronic anemia.
4. Acute bronchitis.
5. Rapid atrial flutter with paroxysmal atrial fibrillation.
6. Essential hypertension.
ASSESSMENT & PLAN
Decompensated acute on [facility] HFpEF : LVEF 70 to 75%, normal RV size and function
Vol overloaded : +27.7 kg = 60 lbs wt gain since December ( provided ER wt is correct)
- IV Lasix 40 BID
- IOs
- daily BMP
- GDMT is limited by hypotension
- [facility] Card consult
MARLEY HX
- Of note; upon last DC note - she was DC'd on BiPAP on last DC
- cannot tolerate mask so she is now on nasal CPAP HS
In NSR
HX Paroxysmal Atrial Fibrillation
- on chr Eliquis
- on Amiodarone
- TLM Monitor
Hypokalemia
Hypomagnesemia
Hypocalcemia
Severe hypoalbuminemia - suspect due to hemodilution due to vol expansion
- multifactorial - hemodilution, hypoalbuminemia
- IV KCL 40 + PO KCL 40
- IV Mg 2 mg
- FU CMP in AM
Normotensive on Midodrine 10mg tid
HX Hypotension improved with midodrine 10 mg 3 times daily.
- cannot add EDMUNDO/ARB/ARNI/aldosterone antagonist due to hypotension
HX chronic anemia - stable Hgb hi 7s to low 8s
Hyperlipidemia
- on Lipitor
Hypothyroidism
HX thyroidectomy.
-on LT4
Tobacco dependence
-cessation advised.
AAA
DVT Px: Eliquis
Code: DNR
IMU
--- NOTE | 2025-05-18 16:15 | HPS.HSE ---
Family Physician
-
Family Physician: Preethi Rush MD
Chief Complaint
-
Shortness of breath, dyspnea on exertion, bilateral leg edema
History of Present Illness
79-year-old female from home where she lives in her own condo who states she has had progressive shortness of breath over the past few days making it difficult to walk in her apartment with her walker. She reports increased dyspnea on exertion and
bilateral leg edema. She reports she spent 100 days in [facility] she has been home since April 05 with PT OT and is due to have aides to start coming twice a week for 3 hours each but have not started yet. She does report
since being home she has been ordering a lot of food from outside [employer] and noticing she was gaining weight in her legs. She was made aware from December to now according to records she has had 60 pound weight gain. Her oxygen is 90% on room air
currently I placed her on 1 L nasal cannula. She states she wears CPAP at night nasal as she cannot tolerate BiPAP she is unsure of setting. She denies headache, sore throat, fever, chills, chest pain, palpitations, cough, abdominal pain, nausea,
vomiting, diarrhea, urinary symptoms. She reports consuming lots of ice she does have history of iron deficiency anemia hemoglobin is 8.8 I made aware we will check her iron labs
She had a admission 12/18 - 12/28/2024 secondary to chronic hypoxic hypercapnic respiratory failure, acute on chronic CHF with acute bronchitis. She initially required BiPAP for hypercapnia/heart failure she was recommended to continue BiPAP on
discharge however did not tolerate and uses CPAP. She improved with IV Lasix diuretic
Patient has past medical history of chronic heart failure preserved EF, chronic hypoxic/hypercapnic respiratory failure on CPAP, COPD, ex-smoker, A-fib/a flutter new Dx 12/16/2024 Zoltan Cardona, HTN, HLD, abdominal aortic aneurysm, tobacco use,
obesity, sleep apnea, thyroid nodule status post thyroidectomy/hypothyroidism, forgetfulness, class III obesity, chronic ambulatory dysfunction uses walker at baseline, iron deficiency anemia
Medical History
Past Medical History
Past Medical History: Reports Other
Additional Past Medical History:
Chronic heart failure preserved EF
Chronic hypoxic/hypercapnic respiratory failure on CPAP
COPD
Ex-smoker
A-fib/a flutter new Dx 12/16/2024 Zoltan Cardona
HTN
HLD
Abdominal aortic aneurysm
Class III obesity
sleep apnea uses nasal CPAP
thyroid nodule status post thyroidectomy/hypothyroidism
forgetfulness
chronic ambulatory dysfunction uses walker at baseline
Iron deficiency anemia
Past Surgical History: Reports Other
Additional Past Surgical History:
Left knee replaced
Thyroidectomy
Social History
Tobacco: Former Smoker (60-year 1 pack a day quit December 2024)
Alcohol: None
Drug: None
Personal: Single
Living: Alone
Employment: Retired
Family History
Family History: Not pertinent
Allergies / Home Medications
Allergies reflects when Allergies were last updated in [facility].
Home Medications with original date entered in [facility]
Allergy/Medication List:
Allergies
Allergy/AdvReac Type Severity Reaction Status Date / Time
lisinopril Allergy Unknown Verified 12/18/24 04:35
Home Medications
apixaban 5 mg tablet 5 mg PO BID Blood Clot Prevention/Tx 12/18/24
atorvastatin 20 mg tablet 20 mg PO DAILY High Cholesterol 12/18/24
levothyroxine 175 mcg tablet 175 mcg PO DAILY Thyroid 12/18/24
ipratropium 0.5 mg-albuterol 3 mg (2.5 mg base)/3 mL nebulization soln 3 ml inhalation R Q4HPRN PRN sob #0 mL 12/28/24
amiodarone 200 mg tablet 200 mg PO DAILY Heart Disease/Condition 05/18/25
docusate sodium 100 mg capsule 100 mg PO BIDPRN PRN constipation 05/18/25
fluticasone 250 mcg-salmeterol 50 mcg/dose blistr powdr for inhalation (Advair Diskus) 1 inh inhalation R BID Lung/Breathing Issues 05/18/25
furosemide 80 mg tablet 80 mg PO DAILY Fluid Retention/Swelling 05/18/25
metoprolol succinate 25 mg tablet,extended release 24 hr 25 mg PO BID Heart Disease/Condition 05/18/25
midodrine 10 mg tablet 10 mg PO TID 05/18/25
potassium chloride 20 mEq tablet,extended release(part/cryst) 20 meq PO BID Electrolyte Repletion 05/18/25
Review of Systems
-
History Source: Patient
A 12 point ROS was completed and negative except as noted: Yes
Constitutional: Reports Weight Gain; Denies Chills
EENT: Denies Sore Throat or Runny Nose
Respiratory: Reports Cough and Trouble Breathing (CADET)
Cardiac: Denies Chest Pain, Diaphoresis, Palpitations or Syncope
Abdomen/GI: Denies Abdominal Pain, Nausea, Vomiting, Diarrhea, Constipated or Bloody Stools
: Denies Dysuria, Frequency, Flank Pain or Incontinence
Musculoskeletal: Reports Edema (+2 bilateral lower leg edema); Denies Joint Pain
Skin: Denies Itching or Rash
Neurological: Denies Dizzy or Headache
Hematologic/Lymphatic: Reports No Symptoms
Psych: Reports Calm
Physical Exam
Vital Signs
Vital Signs
Temp Pulse Resp BP Pulse Ox
98.4 F 63 22 149/75 93
05/18/25 14:42 05/18/25 14:28 05/18/25 14:30 05/18/25 14:26 05/18/25 14:39
Physical Exam
General: Comfortable and Conversant; No Pain, Fever or Chills
HEENT: NormoCephalic, Anicteric, PERRLA, [place] Conjunctivae and No Ptosis
Respiratory: Clear; No Wheezes, Rales or Rhonchi
Cardiac: S1/S2, Regular Rhythm and Peripheral Edema (+2 bilateral lower leg edema); No Murmur, Rub or Gallop
Breast: Deferred by me
GI: Soft, Non Tender, Non Distended, Normal Bowel Sounds and No Hepatosplenomegaly
Rectal: Deferred by Provider
Genito-urinary: Deferred by me
Musculoskeletal: No Clubbing, No Cyanosis, Edema, Left Lower Extremity (+2 bilateral leg edema) and Edema, Right Lower Extremity (+2 bilateral leg edema); No Edema, Left Upper Extremity or Edema, Right Upper Extremity
Skin: Warm and Dry; No Rash
Neuro: AO x 3 (Slight poor memory recall which is baseline for patient), No Motor Deficits (While in bed) and No Sensory Deficits; No Slurred Speech, Facial Droop, Tremors or Sedated
Psych: Calm
Laboratory Results
-
05/18/25 14:31
05/18/25 14:31
Laboratory Results
Total Bilirubin 0.3 mg/dl (0.2-1.3) 05/18/25 14:31
AST 30 U/L (14-36) 05/18/25 14:31
ALT 21 U/L (0-35) 05/18/25 14:31
Alkaline Phosphatase 87 U/L (38-126) 05/18/25 14:31
Troponin I 0.072 ng/ml H* 05/18/25 14:31
Data Reviewed
-
Diagnostic Radiology: Report Reviewed by me
Lab Data: Labs Reviewed by me
Impression/Plan
-
Impression/plan:
Admit to telemetry
#Acute on chronic CHF preserved EF
#Chronic hypoxic/hypercapnic respiratory failure uses CPAP unsure
BNP 1600 reported weight gain 60 pound weight gain since December past 5 months
90-92% RA will start 1 L nasal cannula oxygen
-Consult [facility] cardiology
- IV Lasix 40 mg given in ER
-IV Lasix 40 mg twice daily
CXR: Cardiomegaly with small bilateral pleural effusions and mild interstitial edema
ECHO 12/18/24: Mild concentric LVH, EF 70 to 75%, normal RV, trace TR PASP 30 to 35 mmHg
#Orthostatic hypotension
Becomes hypotensive with IV diuresis will monitor closely
-Continue midodrine 10 mg 3 times daily
#Troponin elevation likely due to demand ischemia
Troponin 0.072 will trend
-Continue metoprolol 25 mg twice daily hold if HR less than 50
EKG sinus bradycardia 57 bpm, QTcB 416 MS
#Hypocalcemia
Calcium 6.4 corrected to 7.3
Check PTH, mag Phos
- Calcium gluconate 4.65 mg:
#Hypokalemia
K3.3
ER gave 40 mEq KCl will give additional KCl 40 mEq
Follow BMP
#Hypomagnesemia
Mag 1.5
-Will give mag rider 2 g
Follow mag
#Acute on chronic anemia/iron deficiency anemia
Hemoglobin 8.8, MCV is 79.3
-Check ferritin, TIBC, iron
#COPD
#Ex-smoker 60 years quit December 2024
- Continue inhalers
#A-fib/a flutter new Dx 12/16/2024 Zoltan Cardona
Continue amiodarone, Eliquis 5 mg twice daily
- Continue metoprolol 25 mg twice daily with hold parameters
#MARLEY/sleep apnea
- Was recommended BiPAP
# HLD
- Continue atorvastatin 20 mg daily
#Abdominal aortic aneurysm
#Thyroid nodule status post thyroidectomy/hypothyroidism
-Continue levothyroxine 175 mcg p.o. daily
#Forgetfulness
Class III obesity�BMI 58.2
Weight loss recommended
DVT prophylaxis
Continue [employer] Eliquis
DNR per patient states her niece Andie Ann is her POA [phone]
[2025-05-18] MEDS: LASIX 40 MG IV (16:59)
[2025-05-18] MEDS: CALCIUM GLUCONATE 100 IV (17:00)
[2025-05-18] MEDS: KCL 40 MEQ PO ×2 (17:00)
[2025-05-18] MEDS: MAGNESIUM SULFATE 50 IV (17:35)
[2025-05-18 17:44] LABS: Iron 22 ug/dl (37-170)
[2025-05-18 17:47] LABS: Total Iron Binding Capacity 352 ug/dl (265-497)
[2025-05-18 18:10] LABS: Ferritin 15.8 ng/ml (11.1-264.0)
[2025-05-18] MEDS: TOPROL XL PO (21:35)
[2025-05-18] MEDS: ELIQUIS 5 MG PO (21:40)
[2025-05-19] VITALS (8 sets, daily range): BP systolic 92–163; BP diastolic 47–69; PULSE 66; O2SAT 94; BMI 54.0
[2025-05-19 01:36] LABS: Troponin I 0.080 ng/ml
[2025-05-19] MEDS: ADVAIR HFA 115/21 MCG INHALER INH (04:36)
[2025-05-19] MEDS: SYNTHROID 175 MCG PO (06:03)
[2025-05-19 07:35] LABS: Hematocrit 32.2 % (37.0-47.0); Hemoglobin 8.6 g/dL (12.0-16.0); Mean Corp Hgb Conc. 26.7 g/dL (33.0-37.0); Mean Corpuscular Volume 83.2 fL (81.0-99.0); Nucleated Red Blood Cells % 0 %; Platelet Count 271 10^3/uL (130-400); Red Cell Dist. Width 21.9 % (11.5-14.5)
--- NOTE | 2025-05-19 07:36 | CON.CAR ---
Addendum entered and electronically signed by Mark Carroll MD 05/19/25 12:25:
I saw and examined the patient.
The Dental Office Assistant's note was reviewed and I agree with the note.
Comment:
GEN: No distress, awake, Ox3
HEENT: supple, anicteric, mmm
LUNGS: CTA, no wheezes/rales
CV: Reg, S1/S2, 1/6 syst LSB, no murmur
ABD: soft, BS+, NT/ND
EXT: No edema
NEURO: Gross non-focal
SKIN: No rash
Plan:
79-year-old female with past medical history of chronic heart failure with preserved ejection fraction, morbid obesity, hypertension, hyperlipidemia, paroxysmal atrial fibrillation presents with progressive weight gain, shortness of breath, and
edema. Upon discharge in December her discharge was dry weight was 257 pounds. Upon arrival to emergency room her weight was 318 pounds. She mitts to being noncompliant with a low-salt diet especially since she has quit smoking in December. She has
marked lower extremity edema, fatigue but denies chest pains or palpitations.
Continue Lasix 40 mg IV twice daily. Continue Toprol. Her blood pressure here has been somewhat elevated. Will reduce dose of midodrine.
She remains in sinus rhythm. Continue Eliquis and Toprol. Continue amiodarone.
Will check on cost of Farxiga.
Will repeat echocardiogram to reevaluate LVEF.
Discussed the importance of CHF education, sodium reduction, and weight loss.
Original Note:
Consultation
Consultation Request
Date/Time Consultation Requested: 05/18/2025 at 1725
Date/Time Consultation Performed: 05/19/2025 at 0 714
Requesting Provider: Dr. Amador
Performing Provider: Dr. Carroll
Reason for Consultation: Acute HF
Medical History
-
History of Present Illness:
Patient came to the ER yesterday with increased SOB and edema and was admitted with acute HF and cardiology has been consulted. Patient was admitted to [facility] from 12/18/2024 until 12/28/2024 with acute on chronic HF and acute on chronic hypoxic and
hypercapnic respiratory failure. During that admission the patient was diuresed to a discharge weight of 257 lbs. patient was sent to on Lasix 80 mg a.m. and 40 mg p.m. daily and the dose was eventually decreased to 80 mg daily and despite this
reduction in dose the patient reports that her LE edema was overall improved and stable and she was able to be discharged to home without oxygen. Patient was finally discharged to home 04/05/2025 and has had VNA services and is waiting for home
health aides through the [facility] to start in the next couple weeks. In the meantime patient says that [place] called her PCP and got the dose of Lasix reduced to 60 mg in the last couple weeks. Patient reports that since she was
discharged to home she is ordering from [employer] and she has also been rewarding herself with treats because of her smoking cessation since December, so when she feels stressed instead of smoking she orders herself what ever she wants. Patient is not
following any salt or fluid restriction at home. She is incapable of weighing herself at home on a daily basis. Increased LE edema over the last 1 to 2 weeks. Towards the end of our conversation she admits that most of the time she does not take
any of her Lasix, but over the last week she started taking it daily and noticed some improvement in edema, and then she seemed to have overall decrease in urine output and edema got worse so she came to the ER yesterday. Patient feels
symptomatically improved following initial attempts at IV diuresis, but remains hypoxic and on supplemental oxygen. She was not using supplemental oxygen at home.
[facility]:
Recent admission for acute HF 12/18/2024 until 12/28/2024 followed by rehab stay at [facility] until 04/05/2025
Previous admission to [facility] for new A-fib 12/14/2024 until 12/16/2024
Chronic HFpEF
Paroxysmal Afib
Paroxysmal typical atrial flutter
Chronic Eliquis OAC
HTN
Hyperlipidemia
Thyroid nodule status post thyroidectomy
Resultant hypothyroidism
AAA
Former smoker, quit 12/2024
Obesity
MARLEY
Forgetfulness
DNR CODE STATUS
Past Medical History
Past Medical History: Other (in HPI)
Past Surgical History: Orthopedic and Other (Thyroidectomy)
Social History
Tobacco: Former Smoker (Quit 12/2024)
Alcohol: None
Drug: None
Personal: Single
Living: Alone
Family History
Family History: CAD and Hypertension
Allergies / Home Medications
Allergy/AdvReac Type Severity Reaction Status Date / Time
lisinopril Allergy Unknown Verified 12/18/24 04:35
�Medication �Instructions �Recorded �Confirmed �Type
apixaban 5 mg tablet 5 mg PO BID Blood Clot 12/18/24 05/18/25 History
Prevention/Tx
atorvastatin 20 mg tablet 20 mg PO DAILY High Cholesterol 12/18/24 05/18/25 History
levothyroxine 175 mcg tablet 175 mcg PO DAILY Thyroid 12/18/24 05/18/25 History
ipratropium 0.5 mg-albuterol 3 mg 3 ml inhalation R Q4HPRN PRN sob 12/28/24 05/18/25 Rx
(2.5 mg base)/3 mL nebulization #0 mL
soln
amiodarone 200 mg tablet 200 mg PO DAILY Heart 05/18/25 05/18/25 History
Disease/Condition
docusate sodium 100 mg capsule 100 mg PO BIDPRN PRN constipation 05/18/25 05/18/25 History
fluticasone 250 mcg-salmeterol 50 1 inh inhalation R BID 05/18/25 05/18/25 History
mcg/dose blistr powdr for Lung/Breathing Issues
inhalation (Advair Diskus)
furosemide 80 mg tablet 80 mg PO DAILY Fluid 05/18/25 05/18/25 History
Retention/Swelling
metoprolol succinate 25 mg 25 mg PO BID Heart 05/18/25 05/18/25 History
tablet,extended release 24 hr Disease/Condition
midodrine 10 mg tablet 10 mg PO TID 05/18/25 05/18/25 History
potassium chloride 20 mEq 20 meq PO BID Electrolyte Repletion 05/18/25 05/18/25 History
tablet,extended release(part/cryst)
Review of Systems
-
History Source: Patient
All other systems: Negative unless noted
Physical Exam
Vital Signs
Temp Pulse Resp BP Pulse Ox
98.0 F 62 20 143/58 95
05/19/25 03:35 05/19/25 03:35 05/19/25 03:35 05/19/25 03:35 05/19/25 03:35
GEN: AAOx3
HEENT: EOMI
LUNGS: 1.5 L NC. CTA B/L, no audible wheeze
CV: Sinus bradycardia on telemetry.
EXT: Trace LE edema
NEURO: Gross non-focal
SKIN: No rash
Lab Results
05/19/25 06:20
Troponin I 0.080 ng/ml H* 05/19/25 01:00
Fvk-T-Unsshtprgnt Pept 1600 pg/ml 05/18/25 14:31
Impression / Plan
-
PCP: Dr. Preethi Rush
Primary Mobile Manager: Dr. Guevara of [facility], last visit 12/2023
Impression:
Admitted with acute hypoxic respiratory failure and acute HF 05/18/2025
Recent admission for acute HF 12/18/2024 until 12/28/2024 followed by rehab stay at [facility] until 04/05/2025
Previous admission to [facility] for new A-fib 12/14/2024 until 12/16/2024
Acute HFpEF
Paroxysmal Afib
Paroxysmal typical atrial flutter
Chronic Eliquis OAC
Elevated troponin
HTN
Hyperlipidemia
Thyroid nodule status post thyroidectomy
Resultant hypothyroidism
AAA
Former smoker, quit 12/2024
Obesity
MARLEY
Forgetfulness
DNR CODE STATUS
ECHO 12/18/24: Mild concentric LVH, EF 70 to 75%, normal RV, trace TR PASP 30 to 35 mmHg
Echo 05/19/2025: Follow-up study pending
Plan:
-Patient came to the ER yesterday with increased SOB and edema and was admitted with acute HF and cardiology has been consulted. Patient was admitted to [facility] from 12/18/2024 until 12/28/2024 with acute on chronic HF and acute on chronic hypoxic and
hypercapnic respiratory failure. During that admission the patient was diuresed to a discharge weight of 257 lbs. patient was sent to on Lasix 80 mg a.m. and 40 mg p.m. daily and the dose was eventually decreased to 80 mg daily and despite this
reduction in dose the patient reports that her LE edema was overall improved and stable and she was able to be discharged to home without oxygen. Patient was finally discharged to home 04/05/2025 and has had VNA services and is waiting for home
health aides through the [facility] to start in the next couple weeks. In the meantime patient says that [facility] called her PCP and got the dose of Lasix reduced to 60 mg in the last couple weeks. Patient reports that since she was
discharged to home she is ordering from [employer] and she has also been rewarding herself with treats because of her smoking cessation since December, so when she feels stressed instead of smoking she orders herself what ever she wants. Patient is not
following any salt or fluid restriction at home. She is incapable of weighing herself at home on a daily basis. Increased LE edema over the last 1 to 2 weeks. Towards the end of our conversation she admits that most of the time she does not take
any of her Lasix, but over the last week she started taking it daily and noticed some improvement in edema, and then she seemed to have overall decrease in urine output and edema got worse so she came to the ER yesterday. Patient feels
symptomatically improved following initial attempts at IV diuresis, but remains hypoxic and on supplemental oxygen. She was not using supplemental oxygen at home.
-ECG reviewed by me is sinus bradycardia
-Weight on the day of discharge 12/28/2024 was 257 lbs and weight on admission overnight was 302 lbs. It is not clear how much of this is pure volume overload and how much is caloric weight gain.
-Continue Lasix 40 mg IV BID. Patient was taking Lasix 60 mg PO daily prior to admission, but was frequently skipping doses and was really only taking reliably for the week just prior to admission.
-Cre 1.1 on my review of the labs 05/19/2025, it was 0.8 on admission. Follow BMP and continue attempts at IV diuresis
-EF was 70 to 75% by echo 12/18/2024. Follow-up echo study ordered by me for 05/19/2025 to recheck EF
-Outpatient dose of Toprol-XL 25 mg BID has been continued. Patient noted to have intermittent sinus bradycardia on telemetry monitoring, will follow and can reduce dose of Toprol-XL if needed, but HR appropriately increases with activity up to 72
bpm while working with PT on my review of VS and telemetry 05/19/2025
-Patient was not taking EDMUNDO/ARB/ARNI/aldosterone antagonist prior to admission due to a history of orthostasis. If symptomatic orthostasis is improved this admission then we will attempt to add lisinopril 5 mg daily
-Patient is not currently on SGLT2 inhibitor for unclear reasons, we will back it previous case management notes to see if cost has been checked and if not we will check and then add Farxiga or Jardiance if they are not cost prohibitive
-Patient has a history of paroxysmal atrial fibrillation and typical atrial flutter. Patient is currently in SR. Continue amiodarone 200 mg daily.
-QTc 416 ms on my review of ECG from 05/18/2025
-Continue Eliquis 5 mg BID (age 79, Cre 1.1)
-Initial troponin was 0.072 and then up to 0.08 and then trending down. No complaints of chest pain. No acute ischemic changes on ECG. Follow-up echo study ordered, but this is likely a nonischemic myocardial injury troponin elevation related to
hypoxia and acute HF.
[2025-05-19 07:51] LABS: ALT (SGPT) 25 U/L (0-35); AST (SGOT) 34 U/L (14-36); Albumin 3.9 g/dl (3.5-5.0); Alkaline Phosphatase 108 U/L (38-126); Blood Urea Nitrogen 35 mg/dl (7-17); Calcium 8.7 mg/dl (8.4-10.2); Carbon Dioxide 30 mmol/L (22-30); Chloride 105 mmol/L (98-107); Estimated Creatinine Clearance 56 ml/min; Glucose 81 mg/dl (70-99); HDL Cholesterol 53 mg/dl; LDL Cholesterol, Calculated 40 mg/dl; Magnesium 2.3 mg/dl (1.6-2.3); Potassium 4.4 mmol/L (3.5-5.1); Sodium 138 mmol/L (135-145); Total Protein 6.8 g/dl (6.3-8.2); Very Low Density Lipoprotein 14 mg/dl (0-30); eGFR 51.43
[2025-05-19] MEDS: ADVAIR HFA 115/21 MCG INHALER 2 PUFF INH ×2 (07:54→19:40)
[2025-05-19] MEDS: LASIX 40 MG IV ×2 (08:45→15:47)
[2025-05-19] MEDS: TOPROL XL 25 MG PO ×2 (08:48→21:21)
[2025-05-19] MEDS: ELIQUIS 5 MG PO ×2 (08:48→21:21)
[2025-05-19] MEDS: PACERONE 200 MG PO (08:48)
[2025-05-19] MEDS: LIPITOR 20 MG PO (08:48)
--- NOTE | 2025-05-19 09:13 | W.PN.HOSP.TC ---
Today's Communication/Plan
-
Diuresis
Echocardiogram
Heme check stools
Assessment / Plan
Assessment / Plan
Gen-AAOx3, NAD
HEENT-NC, AT, anicteric, clear oral mm
Neck-supple
CV-reg, no M, +S1/S2
Lungs-clear B/L
Abd-soft, NT, ND
Ext-no edema
Musculoskeletal-no cyanosis, clubbing
Skin-warm and dry
Neuro-grossly non-focal
Psych-calm, cooperative
Acute hypoxic respiratory failure -due to acute heart failure induced pulmonary edema. Oxygenation stable on 1 to 2 L nasal cannula. Wean down as able. Does not use oxygen at baseline.
Admission chest x-ray shows cardiomegaly with small bilateral pleural effusions and mild interstitial edema.
Acute on chronic heart failure with preserved EF -continue IV Lasix. Cardiology following.
Her discharge weight in December was 116 kg. Currently 133 kg.
Echocardiogram pending.
Troponin elevation -suspect acute nonischemic myocardial injury due to heart failure exacerbation. Troponin trended down.
Hypokalemia -improved.
Hypocalcemia -improved. Elevated PTH noted, 99.5. Suspect underlying vitamin D deficiency. Could be evaluated and treated as an outpatient.
Hypomagnesemia -improved.
COPD without exacerbation
Paroxysmal atrial fibs/flutter -on amiodarone, Eliquis.
Essential hypertension
Hyperlipidemia
Abdominal aortic aneurysm
Sleep apnea -on CPAP.
Hypothyroidism -continue levothyroxine. Underwent previous thyroidectomy.
Chronic iron deficiency anemia -has pica. Will need evaluation for etiology of anemia if not already done.
Hemoglobin currently at baseline, 8.6. Discharge hemoglobin in December was 7.7.
History of tobacco dependence -she quit smoking.
DNR
Super morbid obesity
Anticipated Discharge: > 48 hours
Subjective/Interval History
-
Date of Service: May 19, 2025
Patient seen and examined. Shortness of breath is improving. No new complaints.
Objective Data
-
Labs:
Laboratory Results
05/19/25
06:20
WBC 11.3 H
Hgb 8.6 L
Hct 32.2 L
Plt Count 271
Sodium 138
Potassium 4.4 D
Chloride 105
Carbon Dioxide 30
BUN 35 H
Creatinine 1.1 H
Glucose 81
Calcium 8.7 D
Total Bilirubin 0.7
AST 34
ALT 25
Alkaline Phosphatase 108
Vital Signs:
Vital Signs
Temp Pulse Resp BP Pulse Ox
97.8 F 72 16 102/54 91
05/19/25 07:25 05/19/25 08:00 05/19/25 08:00 05/19/25 08:57 05/19/25 08:00
I&O
05/18/25 05/19/25 05/20/25
06:59 06:59 06:59
Output Total 1500 / 1500
Balance -1500 / -1500
Review of Systems
-
History Source: Patient
All other systems: Reviewed and negative
[2025-05-19 09:15] LABS: Troponin I 0.072 ng/ml
--- NOTE | 2025-05-19 15:23 | CM ---
Alert awake oriented patient who lives alone in a 1 story home with one step to enter and bed/bathroom first level on home.She was recently dc from [place] [facility] x 100 days. She has [place] SWEENEY . She said ceci Ann lives in [place] is her
[place] [phone].She uses a walker.She drives and is independent in ADLs.Pt may need wc van at dc.
Pharmacy [facility]
PCP DR Rush
PLAN Home with [place] SWEENEY
[2025-05-20 03:43] VITALS: BP 138/76
[2025-05-20 05:45] VITALS: BMI 53.8
[2025-05-20] MEDS: SYNTHROID 175 MCG PO (05:45)
[2025-05-20 07:30] VITALS: BP 105/53
[2025-05-20] MEDS: ADVAIR HFA 115/21 MCG INHALER 2 PUFF INH ×2 (07:30→19:52)
[2025-05-20 07:44] LABS: ALT (SGPT) 22 U/L (0-35); AST (SGOT) 26 U/L (14-36); Albumin 3.7 g/dl (3.5-5.0); Alkaline Phosphatase 110 U/L (38-126); Blood Urea Nitrogen 28 mg/dl (7-17); Calcium 8.5 mg/dl (8.4-10.2); Carbon Dioxide 33 mmol/L (22-30); Chloride 103 mmol/L (98-107); Estimated Creatinine Clearance 61 ml/min; Glucose 81 mg/dl (70-99); Potassium 3.8 mmol/L (3.5-5.1); Sodium 138 mmol/L (135-145); Total Protein 6.5 g/dl (6.3-8.2); eGFR 57.66
[2025-05-20 07:50] LABS: Hematocrit 31.1 % (37.0-47.0); Hemoglobin 8.3 g/dL (12.0-16.0); Mean Corp Hgb Conc. 26.7 g/dL (33.0-37.0); Mean Corpuscular Volume 83.6 fL (81.0-99.0); Nucleated Red Blood Cells % 0 %; Platelet Count 253 10^3/uL (130-400); Red Cell Dist. Width 21.4 % (11.5-14.5)
[2025-05-20] MEDS: LASIX 40 MG IV (08:01)
[2025-05-20] MEDS: TOPROL XL 25 MG PO (08:11)
[2025-05-20] MEDS: ELIQUIS 5 MG PO ×2 (08:12→20:17)
[2025-05-20] MEDS: PACERONE 200 MG PO (08:12)
[2025-05-20] MEDS: LIPITOR 20 MG PO (08:12)
[2025-05-20] MEDS: DESENEX/MITRAZOL/ZEASORB 1 APPLIC TOPICAL ×2 (08:26→20:25)
--- NOTE | 2025-05-20 09:27 | CM ---
Addendum entered by Melissa Gomes RN 05/20/25 16:04:
.
Original Note:
Marli said med covered if for DM. Will need to resend script with ICD 10 code for DM . Preauth needed if needed for heart failure. notified.
PT indicated VN .
Pt requested resumption of [facility] . Accepted in Care port .
Pt may need wc van for discharge.
PLAN Home with [facility] fax [phone]
--- NOTE | 2025-05-20 11:09 | W.PN.HOSP.TC ---
Today's Communication/Plan
-
TSH
Increase IV Lasix dose
PT/OT
Bowel regimen
Assessment / Plan
Assessment / Plan
Gen-AAOx3, NAD
HEENT-NC, AT, anicteric, clear oral mm
Neck-supple
CV-reg, no M, +S1/S2
Lungs-clear B/L
Abd-soft, NT, ND
Ext-bilateral lower extremity edema
Musculoskeletal-no cyanosis, clubbing
Skin-warm and dry
Neuro-grossly non-focal
Psych-calm, cooperative
Acute hypoxic respiratory failure -due to acute heart failure induced pulmonary edema. Oxygenation stable on 1 to 2 L nasal cannula. Wean down as able. Does not use oxygen at baseline.
Admission chest x-ray shows cardiomegaly with small bilateral pleural effusions and mild interstitial edema.
Acute on chronic heart failure with preserved EF -continue IV Lasix. Cardiology following.
Her discharge weight in December was 116 kg. Currently 133 kg. Weight appears to have plateaued, will increase Lasix dose to 80mg twice daily. Discussed with cardiology service.
Echocardiogram shows LVEF 70 to 75%, upper normal RV size with normal systolic function. No significant valvular disease. No significant change compared to December echocardiogram.
Troponin elevation -suspect acute nonischemic myocardial injury due to heart failure exacerbation. Troponin trended down.
Hypokalemia -improved.
Hypocalcemia -improved. Elevated PTH noted, 99.5. Suspect underlying vitamin D deficiency. Could be evaluated and treated as an outpatient.
Hypomagnesemia -improved.
COPD without exacerbation -stable.
Paroxysmal atrial fibs/flutter -on amiodarone, Eliquis.
Essential hypertension -stable.
Hyperlipidemia -atorvastatin.
Abdominal aortic aneurysm
Sleep apnea -on CPAP.
Hypothyroidism -continue levothyroxine. Underwent previous thyroidectomy. Check TSH.
Chronic iron deficiency anemia -has pica. Will need evaluation for etiology of anemia if not already done.
Hemoglobin currently at baseline. Discharge hemoglobin in December was 7.7.
History of tobacco dependence -she quit smoking.
DNR
Super morbid obesity
PT/OT
Anticipated Discharge: > 48 hours
Subjective/Interval History
-
Date of Service: May 20, 2025
Patient seen and examined. No new complaints.
Objective Data
-
Labs:
Laboratory Results
05/20/25
06:23
WBC 11.3 H
Hgb 8.3 L
Hct 31.1 L
Plt Count 253
Sodium 138
Potassium 3.8
Chloride 103
Carbon Dioxide 33 H
BUN 28 H
Creatinine 1.0
Glucose 81
Calcium 8.5
Total Bilirubin 0.8
AST 26
ALT 22
Alkaline Phosphatase 110
Vital Signs:
Vital Signs
Temp Pulse Resp BP Pulse Ox
97.7 F 66 16 105/53 97
05/20/25 07:30 05/20/25 08:01 05/20/25 07:35 05/20/25 08:11 05/20/25 07:35
I&O
05/19/25 05/20/25 05/21/25
06:59 06:59 06:59
Intake Total 810 / 810
Output Total 1500 / 1500 2900 / 2900
Balance -1500 / -1500 -2089 /
Review of Systems
-
History Source: Patient
All other systems: Reviewed and negative
[2025-05-20 11:25] VITALS: BP 100/65
[2025-05-20] MEDS: MIRALAX 17 GRAMS PO (11:25)
--- NOTE | 2025-05-20 12:20 | W.PN.CARDCBS ---
Addendum entered and electronically signed by Braxton Borjas DO 05/20/25 15:04:
I saw and examined the patient.
The Political Scientist's note was reviewed and I agree with the note.
Comment:
Plan:
Continue IV diuresis, Lasix increased to 80 mg IV twice daily
Her weight is coming down. Weight was up over 50 pounds compared to her discharge weight on December 2024 during admission for heart failure.
Her weight gain is likely combination of fluid retention and increased caloric intake. With quitting smoking she was eating more and also admits to skipping diuretic doses.
She has diuresed almost 25 pounds since admission but weight overnight has plateaued
EF is stable and preserved.
Maintaining sinus with history of paroxysmal atrial fibrillation/flutter. Continue Eliquis
Discussed with primary service.
Original Note:
Today's Communication / Plan
-
Continue IV diuresis, increase Lasix to 80 mg IV twice daily. Watch BPs as she has had orthostatic hypotension in past
Ambulate
Impression / Plan
-
PCP: Dr. Preethi Rush
Primary Otolaryngology Surgeon: Dr. Guevara of [facility], last visit 12/2023
Impression:
Admitted with acute hypoxic respiratory failure and acute HF 05/18/2025
Recent admission for acute HF 12/18/2024 until 12/28/2024 followed by rehab stay at [facility] until 04/05/2025
Previous admission to [facility] for new A-fib 12/14/2024 until 12/16/2024
Acute HFpEF
Paroxysmal Afib
Paroxysmal typical atrial flutter
Chronic Eliquis OAC
Elevated troponin
HTN
Hyperlipidemia
Thyroid nodule status post thyroidectomy
Resultant hypothyroidism
AAA
Former smoker, quit 12/2024
Obesity
MARLEY
Forgetfulness
DNR CODE STATUS
ECHO 12/18/24: Mild concentric LVH, EF 70 to 75%, normal RV, trace TR PASP 30 to 35 mmHg
Echo 05/19/2025: EF 70 to 75%, upper normal RV size and normal RV function, no significant valvular heart disease
Plan:
-Patient came to the ER 05/18/2025 with increased SOB and edema and was admitted with acute HF and cardiology has been consulted. Wt up 61 lbs compared to discharge wt 12/2024 admission for HF. Not clear if significant weight gain is all fluid
retention versus combination of fluid retention and increased caloric intake. Patient reports she had been eating out frequently as a reward to herself for quitting smoking and also admits to skipping diuretic doses.
-She has diuresed 24 pounds since admission on 05/18/2025 but weight overnight plateaued at 294 pounds.
-Will increase Lasix to 80 mg IV twice daily. Monitor blood pressure on higher dose diuretic as patient has had orthostatic hypotension in past. She remains on midodrine.
-Patient was taking Lasix 60 mg PO daily prior to admission, but was frequently skipping doses and was really only taking reliably for the week just prior to admission.
-Cre stable at 1.0 05/20, it was 0.8 on admission. Follow BMP and continue attempts at IV diuresis
-Echo 05/19/2025 stable with preserved EF 70 to 75%.
-Outpatient dose of Toprol-XL 25 mg BID has been continued. Patient noted to have intermittent sinus bradycardia on telemetry monitoring. Telem personally reviewed: NSR 60-70s. If becomes more bradycardic can reduce dose of Toprol-XL if needed.
Pt with appropriate increase in HR with activity up to 72 bpm while working with PT 05/19/2025
-Patient was not taking EDMUNDO/ARB/ARNI/aldosterone antagonist prior to admission due to a history of orthostasis. If symptomatic orthostasis is improved this admission then we will attempt to add lisinopril 5 mg daily
-Patient is not currently on SGLT2 inhibitor for unclear reasons, we will back it previous case management notes to see if cost has been checked and if not we will check and then add Farxiga or Jardiance if they are not cost prohibitive
-Patient has a history of paroxysmal atrial fibrillation and typical atrial flutter. Patient is currently in SR. Continue amiodarone 200 mg daily.
-QTc 416 ms on my review of ECG from 05/18/2025
-Continue Eliquis 5 mg BID (age 79, Cre 1.1)
-Initial troponin was 0.072 and then up to 0.08 and then trending down. No complaints of chest pain. No acute ischemic changes on ECG. Likely nonischemic myocardial injury troponin elevation related to hypoxia and acute HF.
discussed with hospitalist
Patient came to the ER yesterday with increased SOB and edema and was admitted with acute HF and cardiology has been consulted. Patient was admitted to [facility] from 12/18/2024 until 12/28/2024 with acute on chronic HF and acute on chronic hypoxic and
hypercapnic respiratory failure. During that admission the patient was diuresed to a discharge weight of 257 lbs. patient was sent to on Lasix 80 mg a.m. and 40 mg p.m. daily and the dose was eventually decreased to 80 mg daily and despite this
reduction in dose the patient reports that her LE edema was overall improved and stable and she was able to be discharged to home without oxygen. Patient was finally discharged to home 04/05/2025 and has had VNA services and is waiting for home
health aides through the [facility] to start in the next couple weeks. In the meantime patient says that [facility] called her PCP and got the dose of Lasix reduced to 60 mg in the last couple weeks. Patient reports that since she was
discharged to home she is ordering from [employer] and she has also been rewarding herself with treats because of her smoking cessation since December, so when she feels stressed instead of smoking she orders herself what ever she wants. Patient is not
following any salt or fluid restriction at home. She is incapable of weighing herself at home on a daily basis. Increased LE edema over the last 1 to 2 weeks. Towards the end of our conversation she admits that most of the time she does not take
any of her Lasix, but over the last week she started taking it daily and noticed some improvement in edema, and then she seemed to have overall decrease in urine output and edema got worse so she came to the ER yesterday. Patient feels
symptomatically improved following initial attempts at IV diuresis, but remains hypoxic and on supplemental oxygen. She was not using supplemental oxygen at home.
Progress Note - Otolaryngology Surgeon
Subjective
Date of Service: May 20, 2025
Shortness of breath improved with diuresis
Objective
Labs:
05/20/25 06:23
05/20/25 06:23
Labs
Hgb 8.3 g/dL (12.0-16.0) L 05/20/25 06:23
Hct 31.1 % (37.0-47.0) L 05/20/25 06:23
Plt Count 253 10^3/uL (130-400) 05/20/25 06:23
Sodium 138 mmol/L (135-145) 05/20/25 06:23
Potassium 3.8 mmol/L (3.5-5.1) 05/20/25 06:23
BUN 28 mg/dl (7-17) H 05/20/25 06:23
Creatinine 1.0 mg/dL (0.6-1.0) 05/20/25 06:23
Glucose 81 mg/dl (70-99) 05/20/25 06:23
Troponins
05/18/25 05/18/25 05/19/25
14:31 22:49 01:00
Troponin I 0.072 H* Cancelled 0.080 H*
05/19/25
08:43
Troponin I 0.072 H*
Vital Signs and I&O:
Vital Signs
Temp Pulse Resp BP Pulse Ox
98.4 F 59 18 100/65 94
05/20/25 11:25 05/20/25 11:25 05/20/25 11:25 05/20/25 11:05/20/25 11:25
Vital Signs
Temp Pulse Resp BP Pulse Ox
98.4 F 59 18 100/65 94
05/20/25 11:25 05/20/25 11:25 05/20/25 11:25 05/20/25 11:25 05/20/25 11:25
Intake & Output
05/18/25 05/19/25 05/20/25 05/21/25
06:59 06:59 06:59 06:59
Intake Total 810 / 810
Output Total 1500 / 1500 2900 / 2900
Balance -1500 / -1500 -2089 / -2089
Physical Exam
Physical Exam
GEN: No distress, awake, Ox3
HEENT: supple, anicteric, mmm
LUNGS: Rales right base
CV: Reg, S1/S2, 1/6 syst LSB, no murmur
ABD: soft, BS+, NT/ND
EXT: 1+ bilateral lower extremity edema
NEURO: Gross non-focal
SKIN: No rash
[2025-05-20 12:32] LABS: TSH 7.87 uIU/ml (0.47-4.68)
[2025-05-20 15:36] VITALS: BP 132/94
[2025-05-20] MEDS: LASIX 80 MG IV (16:03)
[2025-05-20 19:09] VITALS: BP 122/58
[2025-05-20] MEDS: SENOKOT-S 1 TABLET PO (20:17)
[2025-05-20] MEDS: TOPROL XL PO (20:24)
[2025-05-20 23:29] VITALS: BP 113/54
[2025-05-21] VITALS (7 sets, daily range): BP systolic 119–138; BP diastolic 54–68; PULSE 78; O2SAT 92; BMI 54.2
[2025-05-21] MEDS: SYNTHROID 175 MCG PO (05:08)
[2025-05-21] MEDS: ADVAIR HFA 115/21 MCG INHALER 2 PUFF INH ×2 (07:20→20:14)
[2025-05-21 07:39] LABS: Hematocrit 30.3 % (37.0-47.0); Hemoglobin 8.2 g/dL (12.0-16.0); Mean Corp Hgb Conc. 27.1 g/dL (33.0-37.0); Mean Corpuscular Volume 83.2 fL (81.0-99.0); Nucleated Red Blood Cells % 0 %; Platelet Count 239 10^3/uL (130-400); Red Cell Dist. Width 21.2 % (11.5-14.5)
[2025-05-21 07:56] LABS: ALT (SGPT) 21 U/L (0-35); AST (SGOT) 24 U/L (14-36); Albumin 3.6 g/dl (3.5-5.0); Alkaline Phosphatase 103 U/L (38-126); Blood Urea Nitrogen 28 mg/dl (7-17); Calcium 8.5 mg/dl (8.4-10.2); Carbon Dioxide 35 mmol/L (22-30); Chloride 101 mmol/L (98-107); Estimated Creatinine Clearance 56 ml/min; Glucose 89 mg/dl (70-99); Potassium 3.9 mmol/L (3.5-5.1); Sodium 138 mmol/L (135-145); Total Protein 6.6 g/dl (6.3-8.2); eGFR 51.43
[2025-05-21] MEDS: LASIX 80 MG IV ×2 (08:37→15:51)
[2025-05-21] MEDS: TOPROL XL 25 MG PO ×2 (08:38→21:23)
[2025-05-21] MEDS: LIPITOR 20 MG PO (08:38)
[2025-05-21] MEDS: ELIQUIS 5 MG PO ×2 (08:39→21:23)
[2025-05-21] MEDS: PACERONE 200 MG PO (08:42)
[2025-05-21] MEDS: MIRALAX PO (08:44)
[2025-05-21] MEDS: DESENEX/MITRAZOL/ZEASORB 1 APPLIC TOPICAL ×2 (08:45→21:22)
[2025-05-21] MEDS: SENOKOT-S 1 TABLET PO ×2 (08:45→21:23)
--- NOTE | 2025-05-21 10:48 | CM ---
Chart reviewed. Met pt at bedside. Remains on O2 @ 1LPM. Remains on IV Lasix BID. Will watch for additional DC needs
Plan: Home with [place].
--- NOTE | 2025-05-21 12:28 | W.PN.HOSP.TC ---
Today's Communication/Plan
-
Continue diuresis
Increase levothyroxine
Assessment / Plan
Assessment / Plan
Gen-AAOx3, NAD
HEENT-NC, AT, anicteric, clear oral mm
Neck-supple
CV-reg, no M, +S1/S2
Lungs-clear B/L
Abd-soft, NT, ND
Ext-bilateral lower extremity edema
Musculoskeletal-no cyanosis, clubbing
Skin-warm and dry
Neuro-grossly non-focal
Psych-calm, cooperative
Acute hypoxic respiratory failure -due to acute heart failure induced pulmonary edema. Oxygenation stable on 1 L nasal cannula. Wean down as able. Does not use oxygen at baseline.
Admission chest x-ray shows cardiomegaly with small bilateral pleural effusions and mild interstitial edema.
Acute on chronic heart failure with preserved EF -continue IV Lasix. Cardiology following.
Her discharge weight in December was 116 kg. Admission weight now 137 kg.
Weight unfortunately looks like it is up today, 134 kg compared to yesterday. Unclear reasons. Not sure if scale needs to be recalibrated. Discussed with nursing. Despite this, I's and O's are negative.
Developing contraction alkalosis, rising bicarbonate noted, 35.
Echocardiogram shows LVEF 70 to 75%, upper normal RV size with normal systolic function. No significant valvular disease. No significant change compared to December echocardiogram.
Troponin elevation -suspect acute nonischemic myocardial injury due to heart failure exacerbation. Troponin trended down.
Hypokalemia -improved.
Hypocalcemia -improved. Elevated PTH noted, 99.5. Suspect underlying vitamin D deficiency. Could be evaluated and treated as an outpatient.
Hypomagnesemia -improved.
COPD without exacerbation -stable.
Paroxysmal atrial fibs/flutter -on amiodarone, Eliquis.
Essential hypertension -stable.
Hyperlipidemia -atorvastatin.
Abdominal aortic aneurysm
Sleep apnea -on CPAP.
Hypothyroidism -continue levothyroxine. Underwent previous thyroidectomy. TSH 7.8, free T4 1.5. Previous TSH was 8.0 in December, free T4 was 0.86. She is on a good dose of levothyroxine, 175 mcg daily.
We can go up to 200 mcg daily, recheck thyroid labs in 3 to 4 weeks as an outpatient.
Chronic iron deficiency anemia -has pica. Will need evaluation for etiology of anemia if not already done.
Hemoglobin currently at baseline. Discharge hemoglobin in December was 7.7.
Hemoglobin here has been stable.
History of tobacco dependence -she quit smoking.
DNR
Super morbid obesity
PT/OT
Anticipated Discharge: > 48 hours
Subjective/Interval History
-
Date of Service: May 21, 2025
Patient seen and examined, no new complaints.
Objective Data
-
Labs:
Laboratory Results
05/21/25
07:09
WBC 10.1
Hgb 8.2 L
Hct 30.3 L
Plt Count 239
Sodium 138
Potassium 3.9
Chloride 101
Carbon Dioxide 35 H
BUN 28 H
Creatinine 1.1 H
Glucose 89
Calcium 8.5
Total Bilirubin 0.7
AST 24
ALT 21
Alkaline Phosphatase 103
Vital Signs:
Vital Signs
Temp Pulse Resp BP Pulse Ox
97.6 F 53 20 134/54 97
05/21/25 11:00 05/21/25 11:00 05/21/25 11:00 05/21/25 11:00 05/21/25 11:00
I&O
05/20/25 05/21/25 05/22/25
06:59 06:59 06:59
Intake Total 810 / 810 1160 / 1160
Output Total 2900 / 2900 3450 / 3450 525 / 525
Balance -2090 / -2090 -2290 / -2290 -525 / -525
Review of Systems
-
History Source: Patient
All other systems: Reviewed and negative
--- NOTE | 2025-05-21 14:29 | W.PN.CARDCBS ---
Addendum entered and electronically signed by Gunjan Vázquez DO 05/21/25 17:26:
I saw and examined the patient.
The Paper Steamer's note was reviewed and I agree with the note.
Comment: Seen and examined. Less shortness of breath still requiring nasal cannula O2
Plan:
Continue IV diuresis, Lasix increased to 80 mg IV twice daily
Her weight is coming down. Weight was up over 50 pounds compared to her discharge weight on December 2024 during admission for heart failure.
Will check labs in the morning and if creatinine is stable would add Zaroxolyn 2.5 mg x 1
Heart failure education, follow weights and renal function/electrolytes
EF is stable and preserved.
Maintaining sinus with history of paroxysmal atrial fibrillation/flutter. Continue Eliquis
Original Note:
Today's Communication / Plan
-
Continue IV diuresis with Lasix 80 mg daily
Consider dose of Zaroxolyn in a.m. if weight unchanged or increases
Continue to wean oxygen as able
Replete potassium
Impression / Plan
-
PCP: Dr. Preethi Rush
Primary Stave Jointer: Dr. Guevara of [facility], last visit 12/2023
Impression:
Admitted with acute hypoxic respiratory failure and acute HF 05/18/2025
Recent admission for acute HF 12/18/2024 until 12/28/2024 followed by rehab stay at [facility] until 04/05/2025
Previous admission to [facility] for new A-fib 12/14/2024 until 12/16/2024
Acute HFpEF
Elevated troponin
Paroxysmal Afib
Paroxysmal typical atrial flutter
Chronic Eliquis OAC
HTN
Hyperlipidemia
Thyroid nodule status post thyroidectomy
Resultant hypothyroidism
AAA
Former smoker, quit 12/2024
Obesity
MARLEY
Forgetfulness
DNR CODE STATUS
ECHO 12/18/24: Mild concentric LVH, EF 70 to 75%, normal RV, trace TR PASP 30 to 35 mmHg
Echo 05/19/2025: EF 70 to 75%, upper normal RV size and normal RV function, no significant valvular heart disease
Plan:
-Patient came to the ER 05/18/2025 with increased SOB and edema and was admitted with acute HF and cardiology has been consulted. Wt up 61 lbs compared to discharge wt 12/2024 admission for HF. Not clear if significant weight gain is all fluid
retention versus combination of fluid retention and increased caloric intake. Patient reports she had been eating out frequently as a reward to herself for quitting smoking and also admits to skipping diuretic doses. Patient was taking Lasix 60 mg
PO daily prior to admission, but was frequently skipping doses and was really only taking reliably for the week just prior to admission.
- Patient reports good urination with Lasix. However, weight up 2 pounds overnight to 296 lb with negative fluid balance with I & Os, Despite increase in Lasix to 80 mg IV twice daily on 05/20/25,
- If weight trends upwards again consider adding dose of Zaroxolyn 2.5 mg 30 minutes prior to Lasix in am
- Monitor blood pressure on higher dose diuretic as patient has had orthostatic hypotension in past. She remains on midodrine.
-Cre stable at 1.1 05/21, it was 0.8 on admission. Follow BMP and continue attempts at IV diuresis
- Potassium 3.9, replete
-Echo 05/19/2025 stable with preserved EF 70 to 75%.
-Outpatient dose of Toprol-XL 25 mg BID has been continued. Patient noted to have intermittent sinus bradycardia with brief pauses on telemetry monitoring. Telem personally reviewed: NSR 60-70s. Pt with appropriate increase in HR with activity
up to 72 bpm while working with PT 05/19/2025
-Patient was not taking EFRAÍN/ARB/ARNI/aldosterone antagonist prior to admission due to a history of orthostasis. If symptomatic orthostasis is improved this admission then we will attempt to add lisinopril 5 mg daily
-Patient is not currently on SGLT2 inhibitor for unclear reasons. Per case management patient would require prior authorization for SGLT2 inhibitor if used for heart failure but is covered for diabetes
-Patient has a history of paroxysmal atrial fibrillation and typical atrial flutter. Patient is currently in SR. Continue amiodarone 200 mg daily.
-QTc 416 ms on my review of ECG from 05/18/2025
-Continue Eliquis 5 mg BID (age 79, Cre 1.1)
-Initial troponin was 0.072 and then up to 0.08 and then trending down. No complaints of chest pain. No acute ischemic changes on ECG. Likely nonischemic myocardial injury troponin elevation related to hypoxia and acute HF.
discussed with hospitalist
Patient came to the ER yesterday with increased SOB and edema and was admitted with acute HF and cardiology has been consulted. Patient was admitted to [facility] from 12/18/2024 until 12/28/2024 with acute on chronic HF and acute on chronic hypoxic and
hypercapnic respiratory failure. During that admission the patient was diuresed to a discharge weight of 257 lbs. patient was sent to on Lasix 80 mg a.m. and 40 mg p.m. daily and the dose was eventually decreased to 80 mg daily and despite this
reduction in dose the patient reports that her LE edema was overall improved and stable and she was able to be discharged to home without oxygen. Patient was finally discharged to home 04/05/2025 and has had VNA services and is waiting for home
health aides through the [facility] on aging to start in the next couple weeks. In the meantime patient says that [facility] called her PCP and got the dose of Lasix reduced to 60 mg in the last couple weeks. Patient reports that since she was
discharged to home she is ordering from [facility] and she has also been rewarding herself with treats because of her smoking cessation since December, so when she feels stressed instead of smoking she orders herself what ever she wants. Patient is not
following any salt or fluid restriction at home. She is incapable of weighing herself at home on a daily basis. Increased LE edema over the last 1 to 2 weeks. Towards the end of our conversation she admits that most of the time she does not take
any of her Lasix, but over the last week she started taking it daily and noticed some improvement in edema, and then she seemed to have overall decrease in urine output and edema got worse so she came to the ER yesterday. Patient feels
symptomatically improved following initial attempts at IV diuresis, but remains hypoxic and on supplemental oxygen. She was not using supplemental oxygen at home.
Progress Note - Stave Jointer
Subjective
Date of Service: May 21, 2025
Patient seen and examined. Patient lying comfortably in bed. Reports symptomatically she is feeling less short of breath. Still on 1 L of oxygen as she desatted to 88 on room air
Objective
Labs:
05/21/25 07:09
05/21/25 07:09
Labs
Hgb 8.2 g/dL (12.0-16.0) L 05/21/25 07:09
Hct 30.3 % (37.0-47.0) L 05/21/25 07:09
Plt Count 239 10^3/uL (130-400) 05/21/25 07:09
Sodium 138 mmol/L (135-145) 05/21/25 07:09
Potassium 3.9 mmol/L (3.5-5.1) 05/21/25 07:09
BUN 28 mg/dl (7-17) H 05/21/25 07:09
Creatinine 1.1 mg/dL (0.6-1.0) H 05/21/25 07:09
Glucose 89 mg/dl (70-99) 05/21/25 07:09
Troponins
05/18/25 05/18/25 05/19/25
14:31 22:49 01:00
Troponin I 0.072 H* Cancelled 0.080 H*
05/19/25
08:43
Troponin I 0.072 H*
Vital Signs and I&O:
Vital Signs
Temp Pulse Resp BP Pulse Ox
97.6 F 58 20 132/58 97
05/21/25 11:00 05/21/25 12:54 05/21/25 11:00 05/21/25 12:54 05/21/25 11:00
Vital Signs
Temp Pulse Resp BP Pulse Ox
97.6 F 58 20 132/58 97
05/21/25 11:00 05/21/25 12:54 05/21/25 11:00 05/21/25 12:54 05/21/25 11:00
Intake & Output
05/19/25 05/20/25 05/21/25 05/22/25
06:59 06:59 06:59 06:59
Intake Total 810 / 810 1160 / 1160 1880 / 1880
Output Total 1500 / 1500 2900 / 2900 3450 / 3450 525 / 525
Balance -1500 / -1500 -0 / -0 -2290 / -2290 1355 / 1355
Physical Exam
Physical Exam
GEN: No distress, awake, Ox3, lying in bed, morbidly obese
HEENT: supple, anicteric, mmm
LUNGS: CTA, no wheezes/rales; on 1 L oxygen via nasal cannula
CV: Reg, S1/S2, no murmur, rub or gallop
ABD: soft, BS+, NT/ND
EXT: Trace edema, legs wrapped with compression Efraín bandages
NEURO: Gross non-focal
SKIN: No rash, warm dry pink
[2025-05-21] MEDS: KCL 40 MEQ PO (15:51)
[2025-05-21] MEDS: TYLENOL 650 MG PO (23:37)
[2025-05-22] VITALS (7 sets, daily range): BP systolic 131–150; BP diastolic 57–68; BMI 53.9
[2025-05-22] MEDS: SYNTHROID 200 MCG PO (06:20)
[2025-05-22 06:38] LABS: Hematocrit 30.6 % (37.0-47.0); Hemoglobin 8.3 g/dL (12.0-16.0); Mean Corp Hgb Conc. 27.1 g/dL (33.0-37.0); Mean Corpuscular Volume 82.0 fL (81.0-99.0); Platelet Count 249 10^3/uL (130-400); Red Cell Dist. Width 21.1 % (11.5-14.5)
[2025-05-22 06:48] LABS: Nucleated Red Blood Cells % 0 %
[2025-05-22 07:04] LABS: ALT (SGPT) 20 U/L (0-35); AST (SGOT) 24 U/L (14-36); Albumin 3.7 g/dl (3.5-5.0); Alkaline Phosphatase 107 U/L (38-126); Blood Urea Nitrogen 32 mg/dl (7-17); Calcium 8.3 mg/dl (8.4-10.2); Chloride 100 mmol/L (98-107); Estimated Creatinine Clearance 56 ml/min; Glucose 79 mg/dl (70-99); Potassium 3.8 mmol/L (3.5-5.1); Sodium 139 mmol/L (135-145); Total Protein 6.3 g/dl (6.3-8.2); eGFR 51.43
[2025-05-22 07:12] LABS: Carbon Dioxide 32 mmol/L (22-30)
[2025-05-22] MEDS: ADVAIR HFA 115/21 MCG INHALER 2 PUFF INH ×2 (07:38→19:52)
--- NOTE | 2025-05-22 08:47 | CM ---
Chart reviewed and patient remains on IV Lasix 80 BID, patient is currently 92% on room air, and able to ambulate in room 80 feet with walker on room air, plan is to home alone, patient has been set up with [facility] visiting nurses.
Plan; Home with [facility] visiting nurses
[facility] Visiting nurses
[2025-05-22] MEDS: TOPROL XL 25 MG PO ×2 (08:52→21:41)
[2025-05-22] MEDS: LIPITOR 20 MG PO (08:52)
[2025-05-22] MEDS: PACERONE 200 MG PO (08:52)
[2025-05-22] MEDS: SENOKOT-S PO (08:52)
[2025-05-22] MEDS: MIRALAX PO (08:52)
[2025-05-22] MEDS: LASIX 80 MG IV ×2 (08:53→16:04)
[2025-05-22] MEDS: ELIQUIS 5 MG PO ×2 (08:53→21:41)
[2025-05-22] MEDS: DESENEX/MITRAZOL/ZEASORB 1 APPLIC TOPICAL ×2 (08:53→21:41)
--- NOTE | 2025-05-22 11:02 | W.PN.HOSP.TC ---
Today's Communication/Plan
-
Continue current efforts
Assessment / Plan
Assessment / Plan
Gen-AAOx3, NAD
HEENT-NC, AT, anicteric, clear oral mm
Neck-supple
CV-reg, no M, +S1/S2
Lungs-clear B/L
Abd-soft, NT, ND
Ext-bilateral lower extremity edema
Musculoskeletal-no cyanosis, clubbing
Skin-warm and dry
Neuro-grossly non-focal
Psych-calm, cooperative
Acute hypoxic respiratory failure -due to acute heart failure induced pulmonary edema. Oxygenation improved, now on room air. Does not use oxygen at baseline.
Admission chest x-ray shows cardiomegaly with small bilateral pleural effusions and mild interstitial edema.
Acute on chronic heart failure with preserved EF -continue IV Lasix. Cardiology following.
Her discharge weight in December was 116 kg. Admission weight now 137 kg, now 133 kg and it has plateaued over the past several days.
Developing contraction alkalosis, BUN to creatinine ratio elevated but stable.
Echocardiogram shows LVEF 70 to 75%, upper normal RV size with normal systolic function. No significant valvular disease. No significant change compared to December echocardiogram.
Agree with cardiology regarding adding Zaroxolyn. Will discuss with them.
Troponin elevation -suspect acute nonischemic myocardial injury due to heart failure exacerbation. Troponin trended down.
Hypokalemia -improved.
Hypocalcemia -improved. Elevated PTH noted, 99.5. Suspect underlying vitamin D deficiency. Could be evaluated and treated as an outpatient.
Hypomagnesemia -improved.
COPD without exacerbation -stable.
Paroxysmal atrial fibs/flutter -on amiodarone, Eliquis.
Essential hypertension -stable.
Hyperlipidemia -atorvastatin.
Abdominal aortic aneurysm
Sleep apnea -on CPAP.
Hypothyroidism -continue levothyroxine. Underwent previous thyroidectomy. TSH 7.8, free T4 1.5. Previous TSH was 8.0 in December, free T4 was 0.86.
Levothyroxine dose increased to 200 mcg daily in the hospital, recheck thyroid labs in 3 to 4 weeks.
Chronic iron deficiency anemia -has pica. Will need evaluation for etiology of anemia if not already done.
Hemoglobin currently at baseline. Discharge hemoglobin in December was 7.7.
Hemoglobin here has been stable.
History of tobacco dependence -she quit smoking.
DNR
Super morbid obesity
PT/OT -Home health recommended.
Anticipated Discharge: > 48 hours
Subjective/Interval History
-
Date of Service: May 22, 2025
Patient seen and examined. Denies shortness of breath. No complaints.
Objective Data
-
Labs:
Laboratory Results
05/22/25
05:28
WBC 10.9 H
Hgb 8.3 L
Hct 30.6 L
Plt Count 249
Sodium 139
Potassium 3.8
Chloride 100
Carbon Dioxide 32 H
BUN 32 H
Creatinine 1.1 H
Glucose 79
Calcium 8.3 L
Total Bilirubin 0.5
AST 24
ALT 20
Alkaline Phosphatase 107
Vital Signs:
Vital Signs
Temp Pulse Resp BP Pulse Ox
97.5 F 60 16 150/68 92
05/22/25 07:17 05/22/25 07:41 05/22/25 07:41 05/22/25 08:52 05/22/25 08:30
I&O
05/21/25 05/22/25 05/23/25
06:59 06:59 06:59
Intake Total 1160 / 1160 2420 / 2420
Output Total 3450 / 3450 2200 / 2200 450 / 450
Balance -2290 / -2290 220 / 220 -450 / -450
Review of Systems
-
History Source: Patient
All other systems: Reviewed and negative
--- NOTE | 2025-05-22 11:14 | W.PN.CARDCBS ---
Today's Communication / Plan
-
Continue efforts for diuresis and add Zaroxolyn 2.5 mg x 1
Impression / Plan
-
PCP: Dr. Preethi Rush
Primary Button Spindler: Dr. Guevara of [facility], last visit 12/2023
Impression:
Admitted with acute hypoxic respiratory failure and acute HF 05/18/2025
Recent admission for acute HF 12/18/2024 until 12/28/2024 followed by rehab stay at [facility] until 04/05/2025
Previous admission to [facility] for new A-fib 12/14/2024 until 12/16/2024
Acute HFpEF
Elevated troponin
Paroxysmal Afib
Paroxysmal typical atrial flutter
Chronic Eliquis OAC
HTN
Hyperlipidemia
Thyroid nodule status post thyroidectomy
Resultant hypothyroidism
AAA
Former smoker, quit 12/2024
Obesity
MARLEY
Forgetfulness
DNR CODE STATUS
ECHO 12/18/24: Mild concentric LVH, EF 70 to 75%, normal RV, trace TR PASP 30 to 35 mmHg
Echo 05/19/2025: EF 70 to 75%, upper normal RV size and normal RV function, no significant valvular heart disease
Plan:
Acute hypoxic respiratory failure with acute heart failure with preserved ejection fraction
-Volume status assessment is difficult with morbid obesity and BMI greater than 50 but she still appears volume overloaded
- She is diuresing with IV Lasix however weight has plateaued
- Trial of Zaroxolyn 2.5 mg orally half hour before evening Lasix
- Close monitoring of renal function and electrolytes.
- Continue use of CPAP
-Patient had previously been on Farxiga 10 mg daily at the time of admission which is currently held. No contraindications would resume at time of discharge.
- As an outpatient she would likely benefit and be a good candidate for GLP-1 agonists
Abnormal cardiac troponin without chest pain, suspect acute nonischemic myocardial injury due to heart failure exacerbation
History of PAF/flutter on Eliquis anticoagulation and amiodarone
Chronic normocytic anemia with hemoglobin 8.3 g/dL�hemoglobin has been stable this admission but should have a workup if not previously done as an outpatient
History of hypothyroidism status post thyroidectomy for thyroid nodule�noted
History of COPD and sleep apnea�continue use of CPAP. Recommend outpatient pulmonary follow-up
Patient came to the ER yesterday with increased SOB and edema and was admitted with acute HF and cardiology has been consulted. Patient was admitted to [facility] from 12/18/2024 until 12/28/2024 with acute on chronic HF and acute on chronic hypoxic and
hypercapnic respiratory failure. During that admission the patient was diuresed to a discharge weight of 257 lbs. patient was sent to on Lasix 80 mg a.m. and 40 mg p.m. daily and the dose was eventually decreased to 80 mg daily and despite this
reduction in dose the patient reports that her LE edema was overall improved and stable and she was able to be discharged to home without oxygen. Patient was finally discharged to home 04/05/2025 and has had VNA services and is waiting for home
health aides through the [facility] on aging to start in the next couple weeks. In the meantime patient says that [place] [facility] called her PCP and got the dose of Lasix reduced to 60 mg in the last couple weeks. Patient reports that since she was
discharged to home she is ordering from [facility] and she has also been rewarding herself with treats because of her smoking cessation since December, so when she feels stressed instead of smoking she orders herself what ever she wants. Patient is not
following any salt or fluid restriction at home. She is incapable of weighing herself at home on a daily basis. Increased LE edema over the last 1 to 2 weeks. Towards the end of our conversation she admits that most of the time she does not take
any of her Lasix, but over the last week she started taking it daily and noticed some improvement in edema, and then she seemed to have overall decrease in urine output and edema got worse so she came to the ER yesterday. Patient feels
symptomatically improved following initial attempts at IV diuresis, but remains hypoxic and on supplemental oxygen. She was not using supplemental oxygen at home.
Progress Note - Button Spindler
Subjective
Date of Service: May 22, 2025
Seen and examined. Patient was lying supine and appears comfortable on room air. States that her breathing and leg edema have improved. Denies chest pain
Objective
Labs:
05/22/25 05:28
05/22/25 05:28
Labs
Hgb 8.3 g/dL (12.0-16.0) L 05/22/25 05:28
Hct 30.6 % (37.0-47.0) L 05/22/25 05:28
Plt Count 249 10^3/uL (130-400) 05/22/25 05:28
Sodium 139 mmol/L (135-145) 05/22/25 05:28
Potassium 3.8 mmol/L (3.5-5.1) 05/22/25 05:28
BUN 32 mg/dl (7-17) H 05/22/25 05:28
Creatinine 1.1 mg/dL (0.6-1.0) H 05/22/25 05:28
Glucose 79 mg/dl (70-99) 05/22/25 05:28
Vital Signs and I&O:
Vital Signs
Temp Pulse Resp BP Pulse Ox
97.5 F 60 16 150/68 92
05/22/25 07:17 05/22/25 07:41 05/22/25 07:41 05/22/25 08:52 05/22/25 08:30
Vital Signs
Temp Pulse Resp BP Pulse Ox
97.5 F 60 16 150/68 92
05/22/25 07:17 05/22/25 07:41 05/22/25 07:41 05/22/25 08:52 05/22/25 08:30
Intake & Output
05/20/25 05/21/25 05/22/25 05/23/25
06:59 06:59 06:59 06:59
Intake Total 810 / 810 1160 / 1160 2420 / 2420
Output Total 2900 / 2900 3450 / 3450 2200 / 2200 450 / 450
Balance -0 / -2089 -2290 / -2290 220 / 220 -450 / -450
Physical Exam
Physical Exam
GEN: No distress, awake, Ox3, lying in bed, morbidly obese
HEENT: supple, anicteric, mmm
LUNGS: CTA, no wheezes/rales
CV: Reg, S1/S2, no murmur, rub or gallop
ABD: soft, BS+, NT/ND
EXT: Trace edema, legs wrapped with compression Efraín bandages
[2025-05-22] MEDS: ZAROXOLYN 2.5 MG PO (16:04)
[2025-05-22] MEDS: SENOKOT-S 1 TABLET PO (21:41)
[2025-05-23 03:39] VITALS: BP 130/47
[2025-05-23 05:17] VITALS: BMI 52.7
[2025-05-23 06:18] LABS: Blood Urea Nitrogen 32 mg/dl (7-17); Calcium 8.8 mg/dl (8.4-10.2); Chloride 97 mmol/L (98-107); Estimated Creatinine Clearance 55 ml/min; Glucose 85 mg/dl (70-99); Potassium 3.5 mmol/L (3.5-5.1); Sodium 139 mmol/L (135-145); eGFR 51.43
[2025-05-23 06:27] LABS: Carbon Dioxide 36 mmol/L (22-30)
[2025-05-23] MEDS: SYNTHROID 200 MCG PO (06:35)
[2025-05-23] MEDS: ADVAIR HFA 115/21 MCG INHALER 2 PUFF INH (07:07)
--- NOTE | 2025-05-23 07:29 | W.PN.UPDATE ---
Update Note
Progress Note Update
RN advised that patient had multiple >3 second pauses while sleeping. Vital signs stable. Cardiology following.
--- NOTE | 2025-05-23 07:55 | PTCARENOTE ---
Pt with a 3.8 sec pause while sleeping- VSS- tele strip in chart
[2025-05-23 08:11] VITALS: BP 142/56
[2025-05-23] MEDS: DESENEX/MITRAZOL/ZEASORB 1 APPLIC TOPICAL ×2 (08:34→21:38)
[2025-05-23] MEDS: LIPITOR 20 MG PO (08:34)
[2025-05-23] MEDS: ELIQUIS 5 MG PO ×2 (08:34→21:35)
[2025-05-23] MEDS: PACERONE 200 MG PO (08:35)
[2025-05-23] MEDS: SENOKOT-S PO ×2 (08:35→21:34)
[2025-05-23] MEDS: MIRALAX PO (08:35)
[2025-05-23] MEDS: LASIX 80 MG IV ×2 (08:38→17:04)
[2025-05-23] MEDS: TOPROL XL 25 MG PO (08:39)
--- NOTE | 2025-05-23 09:22 | W.PN.HOSP.TC ---
Today's Communication/Plan
-
Replete potassium
Check magnesium
Continue diuretics
Assessment / Plan
Assessment / Plan
Gen-AAOx3, NAD
HEENT-NC, AT, anicteric, clear oral mm
Neck-supple
CV-reg, no M, +S1/S2
Lungs-clear B/L
Abd-soft, NT, ND
Ext-bilateral lower extremity edema, improving
Musculoskeletal-no cyanosis, clubbing
Skin-warm and dry
Neuro-grossly non-focal
Psych-calm, cooperative
Acute hypoxic respiratory failure -due to acute heart failure induced pulmonary edema. Oxygenation improved, now on room air. Does not use oxygen at baseline.
Admission chest x-ray shows cardiomegaly with small bilateral pleural effusions and mild interstitial edema.
Acute on chronic heart failure with preserved EF -continue IV Lasix. Cardiology following.
Her discharge weight in December was 116 kg. Admission weight now 137 kg, now 130 kg. Appears that Zaroxolyn has helped. Received a dose yesterday.
Developing contraction alkalosis, BUN to creatinine ratio elevated but stable.
Echocardiogram shows LVEF 70 to 75%, upper normal RV size with normal systolic function. No significant valvular disease. No significant change compared to December echocardiogram.
Sinus pauses -noted overnight, 3.4 seconds. Defer to cardiology. Potassium 3.5, will replete. Check magnesium level.
Troponin elevation -suspect acute nonischemic myocardial injury due to heart failure exacerbation. Troponin trended down.
Hypokalemia -improved.
Hypocalcemia -improved. Elevated PTH noted, 99.5. Suspect underlying vitamin D deficiency. Could be evaluated and treated as an outpatient.
Hypomagnesemia -improved.
COPD without exacerbation -stable.
Paroxysmal atrial fibs/flutter -on amiodarone, Eliquis.
Essential hypertension -stable.
Hyperlipidemia -atorvastatin.
Abdominal aortic aneurysm
Sleep apnea -on CPAP.
Hypothyroidism -continue levothyroxine. Underwent previous thyroidectomy. TSH 7.8, free T4 1.5. Previous TSH was 8.0 in December, free T4 was 0.86.
Levothyroxine dose increased to 200 mcg daily in the hospital, recheck thyroid labs in 3 to 4 weeks.
Chronic iron deficiency anemia -has pica. Will need evaluation for etiology of anemia if not already done.
Hemoglobin currently at baseline. Discharge hemoglobin in December was 7.7.
Hemoglobin here has been stable.
History of tobacco dependence -she quit smoking.
DNR
Super morbid obesity
PT/OT -Home health recommended.
Anticipated Discharge: > 48 hours
Subjective/Interval History
-
Date of Service: May 23, 2025
Patient seen and examined. No complaints.
Objective Data
-
Labs:
Laboratory Results
05/23/25
05:31
Sodium 139
Potassium 3.5
Chloride 97 L
Carbon Dioxide 36 H
BUN 32 H
Creatinine 1.1 H
Glucose 85
Calcium 8.8
Vital Signs:
Vital Signs
Temp Pulse Resp BP Pulse Ox
97.9 F 69 18 142/56 92
05/23/25 08:11 05/23/25 08:38 05/23/25 08:11 05/23/25 08:39 05/23/25 08:11
I&O
05/22/25 05/23/25 05/24/25
06:59 06:59 06:59
Intake Total 2420 / 2420 840 / 840
Output Total 2200 / 2200 3220 / 3220
Balance 220 / 220 -2380 / -2380
Review of Systems
-
History Source: Patient
All other systems: Reviewed and negative
[2025-05-23] MEDS: KCL 40 MEQ PO (09:34)
[2025-05-23 09:40] LABS: Magnesium 2.0 mg/dl (1.6-2.3)
[2025-05-23 11:53] VITALS: BP 120/56
[2025-05-23 15:02] VITALS: BP 120/71; BP 122/71; BP 124/75; PULSE 53; PULSE 54
--- NOTE | 2025-05-23 18:46 | W.PN.CARDCBS ---
Today's Communication / Plan
-
Continue efforts for diuretics. Will give a dose of Zaroxolyn 2.5 mg 30 minutes prior to a.m. dose of Lasix on 05/24
Impression / Plan
-
PCP: Dr. Preethi Rush
Primary Basket Hand Braider: Dr. Guevara of [facility], last visit 12/2023
Impression:
Admitted with acute hypoxic respiratory failure and acute HF 05/18/2025
Recent admission for acute HF 12/18/2024 until 12/28/2024 followed by [place]hab stay [facility] [place] 04[place]25
Previous admission to [facility] for new A-fib 12/14/2024 until 12/16/2024
Acute HFpEF
Elevated troponin
Paroxysmal Afib
Paroxysmal typical atrial flutter
Chronic Eliquis OAC
HTN
Hyperlipidemia
Thyroid nodule status post thyroidectomy
Resultant hypothyroidism
AAA
Former smoker, quit 12/2024
Obesity
MARLEY
Forgetfulness
DNR CODE STATUS
ECHO 12/18/24: Mild concentric LVH, EF 70 to 75%, normal RV, trace TR PASP 30 to 35 mmHg
Echo 05/19/2025: EF 70 to 75%, upper normal RV size and normal RV function, no significant valvular heart disease
Plan:
Acute hypoxic respiratory failure with acute heart failure with preserved ejection fraction
-Volume status assessment is difficult with morbid obesity and BMI greater than 50 but she still appears volume overloaded
- She did well with the addition of Zaroxolyn 2.5 mg daily yesterday however has requested not to have an additional dose of Zaroxolyn today due to increased urination throughout the night. Will change dose of Zaroxolyn 2.5 mg to 30 minutes prior
to a.m. dose of Lasix on 05/24/2025.
- Close monitoring of renal function and electrolytes.
-Patient had previously been on Farxiga 10 mg daily at the time of admission which is currently held. If no contraindications would resume at time of discharge.
- As an outpatient she would likely benefit and be a good candidate for GLP-1 agonists
Sinus pauses during sleep noted on telemetry likely related to sleep apnea. Patient is compliant with CPAP at home however has not been utilizing during this hospitalization. Will order CPAP through respiratory.Monitor telemetry
Abnormal cardiac troponin without chest pain, suspect acute nonischemic myocardial injury due to heart failure exacerbation
History of PAF/flutter on Eliquis anticoagulation and amiodarone
Chronic normocytic anemia with hemoglobin 8.3 g/dL�hemoglobin has been stable this admission but should have a workup if not previously done as an outpatient
History of hypothyroidism status post thyroidectomy for thyroid nodule�noted
History of COPD and sleep apnea�continue use of CPAP. Recommend outpatient pulmonary follow-up
Patient came to the ER yesterday with increased SOB and edema and was admitted with acute HF and cardiology has been consulted. Patient was admitted to [facility] from 12/18/2024 until 12/28/2024 with acute on chronic HF and acute on chronic hypoxic and
hypercapnic respiratory failure. During that admission the patient was diuresed to a discharge weight of 257 lbs. patient was sent to on Lasix 80 mg a.m. and 40 mg p.m. daily and the dose was eventually decreased to 80 mg daily and despite this
reduction in dose the patient reports that her LE edema was overall improved and stable and she was able to be discharged to home without oxygen. Patient was finally discharged to home 04/05/2025 and has had VNA services and is waiting for home
health aides through the [facility] to start in the next couple weeks. In the meantime patient says that [facility] called her PCP and got the dose of Lasix reduced to 60 mg in the last couple weeks. Patient reports that since she was
discharged to home she is ordering from [employer] and she has also been rewarding herself with treats because of her smoking cessation since December, so when she feels stressed instead of smoking she orders herself what ever she wants. Patient is not
following any salt or fluid restriction at home. She is incapable of weighing herself at home on a daily basis. Increased LE edema over the last 1 to 2 weeks. Towards the end of our conversation she admits that most of the time she does not take
any of her Lasix, but over the last week she started taking it daily and noticed some improvement in edema, and then she seemed to have overall decrease in urine output and edema got worse so she came to the ER yesterday. Patient feels
symptomatically improved following initial attempts at IV diuresis, but remains hypoxic and on supplemental oxygen. She was not using supplemental oxygen at home.
Progress Note - Basket Hand Braider
Subjective
Date of Service: May 23, 2025
Seen and examined. Sitting out of bed to chair and overall feeling less shortness of breath and fullness. Reports that she diuresed throughout the night with poor sleep yesterday after dose of Zaroxolyn.
Objective
Labs:
05/22/25 05:28
05/23/25 05:31
Labs
Hgb 8.3 g/dL (12.0-16.0) L 05/22/25 05:28
Hct 30.6 % (37.0-47.0) L 05/22/25 05:28
Plt Count 249 10^3/uL (130-400) 05/22/25 05:28
Sodium 139 mmol/L (135-145) 05/23/25 05:31
Potassium 3.5 mmol/L (3.5-5.1) 05/23/25 05:31
BUN 32 mg/dl (7-17) H 05/23/25 05:31
Creatinine 1.1 mg/dL (0.6-1.0) H 05/23/25 05:31
Glucose 85 mg/dl (70-99) 05/23/25 05:31
Vital Signs and I&O:
Vital Signs
Temp Pulse Resp BP Pulse Ox
98 F 71 18 120/56 96
05/23/25 15:02 05/23/25 11:53 05/23/25 15:02 05/23/25 12:07 05/23/25 15:02
Vital Signs
Temp Pulse Resp BP Pulse Ox
98 F 71 18 120/56 96
05/23/25 15:02 05/23/25 11:53 05/23/25 15:02 05/23/25 12:07 05/23/25 15:02
Intake & Output
05/21/25 05/22/25 05/23/25 05/24/25
06:59 06:59 06:59 06:59
Intake Total 1160 / 1160 2420 / 2420 840 / 840 720 / 720
Output Total 3450 / 3450 2200 / 2200 3220 / 3220 2200 / 2200
Balance -2290 / -2290 220 / 220 -2380 / -2380 -1480 / -1480
Physical Exam
Physical Exam
GEN: No distress, awake, Ox3, lying in bed, morbidly obese
HEENT: supple, anicteric, mmm
LUNGS: CTA, no wheezes/rales
CV: Reg, S1/S2, no murmur, rub or gallop
ABD: soft, BS+, NT/ND
EXT: Trace edema, legs wrapped with compression Efraín bandages
[2025-05-23 19:52] VITALS: BP 131/60
[2025-05-23] MEDS: ADVAIR HFA 115/21 MCG INHALER INH (20:53)
[2025-05-23] MEDS: KCL 20 MEQ PO (21:35)
[2025-05-23 23:25] VITALS: BP 130/66
[2025-05-24] VITALS (7 sets, daily range): BP systolic 96–149; BP diastolic 48–78; PULSE 64–78; BMI 50.8
[2025-05-24] MEDS: SYNTHROID 200 MCG PO (05:09)
[2025-05-24] MEDS: ADVAIR HFA 115/21 MCG INHALER 2 PUFF INH ×2 (07:58→19:18)
--- NOTE | 2025-05-24 08:10 | W.PN.HOSP.TC ---
Today's Communication/Plan
-
Continue IV Lasix
AM Labs
Continue monitoring on telemetry
Assessment / Plan
Assessment / Plan
Gen-AAOx3, NAD
HEENT-NC, AT, anicteric, clear oral mm
Neck-supple
CV-reg, no M, +S1/S2
Lungs-clear B/L
Abd-soft, NT, ND
Ext-bilateral lower extremity edema, improving
Musculoskeletal-no cyanosis, clubbing
Skin-warm and dry
Neuro-grossly non-focal
Psych-calm, cooperative
Acute hypoxic respiratory failure -due to acute heart failure induced pulmonary edema. Oxygenation improved, now on room air. Does not use oxygen at baseline.
Admission chest x-ray shows cardiomegaly with small bilateral pleural effusions and mild interstitial edema.
Acute on chronic heart failure with preserved EF - continue IV Lasix. Continue Zaroxolyn as per cardiology. Cardiology following.
Her discharge weight in December was 116 kg. Admission weight now 137 kg, now 130 kg. Appears that Zaroxolyn has helped. Received a dose yesterday.
Developing contraction alkalosis, BUN to creatinine ratio elevated but stable.
Echocardiogram shows LVEF 70 to 75%, upper normal RV size with normal systolic function. No significant valvular disease. No significant change compared to December echocardiogram.
Sinus pauses (suspected secondary to sleep apnea) - noted this admission, during sleep, 3.4 seconds. Defer to cardiology. Bradycardia and pauses improved with CPAP during hospitalization. Keep potassium >4 and magnesium >2.
Troponin elevation -suspect acute nonischemic myocardial injury due to heart failure exacerbation. Troponin trended down.
Hypokalemia -improved.
Hypocalcemia -improved. Elevated PTH noted, 99.5. Suspect underlying vitamin D deficiency. Could be evaluated and treated as an outpatient.
Hypomagnesemia -improved.
COPD without exacerbation -stable.
Paroxysmal atrial fibs/flutter -on amiodarone, Eliquis.
Essential hypertension -stable.
Hyperlipidemia -atorvastatin.
Abdominal aortic aneurysm
Sleep apnea -on CPAP.
Hypothyroidism -continue levothyroxine. Underwent previous thyroidectomy. TSH 7.8, free T4 1.5. Previous TSH was 8.0 in December, free T4 was 0.86.
Levothyroxine dose increased to 200 mcg daily in the hospital, recheck thyroid labs in 3 to 4 weeks.
Chronic iron deficiency anemia -has pica. Will need evaluation for etiology of anemia if not already done.
Hemoglobin currently at baseline. Discharge hemoglobin in December was 7.7.
Hemoglobin here has been stable.
History of tobacco dependence -she quit smoking.
DNR
Super morbid obesity
PT/OT -Home health recommended.
Anticipated Discharge: 24 - 48 hours
Subjective/Interval History
-
Date of Service: May 24, 2025
Patient was seen and examined. She reported feeling much better, she denied any new symptoms or complaints.
Objective Data
-
Labs:
Laboratory Results
05/24/25
07:27
Sodium Pending
Potassium Pending
Chloride Pending
Carbon Dioxide Pending
BUN Pending
Creatinine Pending
Glucose Pending
Calcium Pending
Vital Signs:
Vital Signs
Temp Pulse Resp BP Pulse Ox
97.9 F 60 14 109/78 92
05/24/25 07:30 05/24/25 08:05 05/24/25 08:05 05/24/25 07:30 05/24/25 08:05
I&O
05/23/25 05/24/25 05/25/25
06:59 06:59 06:59
Intake Total 840 / 840 1020 / 1020
Output Total 3220 / 3220 4050 / 4050
Balance -2380 / -2380 -3030 / -3030
[2025-05-24] MEDS: DESENEX/MITRAZOL/ZEASORB 1 APPLIC TOPICAL ×2 (08:46→19:42)
[2025-05-24] MEDS: KCL 20 MEQ PO ×2 (08:47→19:42)
[2025-05-24] MEDS: SENOKOT-S PO ×2 (08:48→19:35)
[2025-05-24] MEDS: MIRALAX PO (08:48)
[2025-05-24] MEDS: LIPITOR 20 MG PO (08:49)
[2025-05-24] MEDS: ELIQUIS 5 MG PO ×2 (08:49→19:42)
[2025-05-24] MEDS: TOPROL XL PO (08:52)
[2025-05-24] MEDS: PACERONE 200 MG PO (08:53)
[2025-05-24] MEDS: ZAROXOLYN 2.5 MG PO (08:53)
[2025-05-24 09:06] LABS: Blood Urea Nitrogen 35 mg/dl (7-17); Calcium 9.3 mg/dl (8.4-10.2); Chloride 95 mmol/L (98-107); Estimated Creatinine Clearance 54 ml/min; Glucose 79 mg/dl (70-99); Magnesium 2.0 mg/dl (1.6-2.3); Potassium 3.9 mmol/L (3.5-5.1); Sodium 138 mmol/L (135-145); eGFR 51.43
[2025-05-24 09:18] LABS: Carbon Dioxide 34 mmol/L (22-30)
[2025-05-24] MEDS: LASIX 80 MG IV ×2 (09:20→16:15)
--- NOTE | 2025-05-24 12:47 | W.PN.CARDCBS ---
Addendum entered and electronically signed by Robinson Love MD 05/24/25 13:58:
I saw and examined the patient.
The SKEINER or PA's note was reviewed and I agree with the note.
Comment: General: Well developed, well nourished in NAD.
Neck: Supple, no JVD, HJR, carotids +2 B/L, no bruits bilaterally.
Heart: Non displaced PMI, RRR, no murmurs, No S3, S4, no rubs.
Lungs: Scattered rhonchi
Extremities: No clubbing, cyanosis or edema bilaterally.
Neuro: Grossly nonfocal, awake, alert and oriented x3.
Very difficult volume status. She continues to lose weight with stable creatinine of 1.1. She received Zaroxolyn and Lasix today. Reassess on 05/25 AM.
Original Note:
Today's Communication / Plan
-
Give Zaroxolyn 2.5 mg today
Continue IV diuresis
Replete potassium
Impression / Plan
-
PCP: Dr. Preethi Rush
Primary Bleach Packer: Dr. Guevara of [facility], last visit 12/2023
Impression:
Admitted with acute hypoxic respiratory failure and acute HF 05/18/2025
Recent admission for acute HF 12/18/2024 until 12/28/2024 followed by rehab stay at [facility] until 04/05/2025
Previous admission to [facility] for new A-fib 12/14/2024 until 12/16/2024
Acute HFpEF
Elevated troponin
Paroxysmal Afib
Paroxysmal typical atrial flutter
Chronic Eliquis OAC
HTN
Hyperlipidemia
Thyroid nodule status post thyroidectomy
Resultant hypothyroidism
AAA
Former smoker, quit 12/2024
Obesity
MARLEY
Forgetfulness
DNR CODE STATUS
ECHO 12/18/24: Mild concentric LVH, EF 70 to 75%, normal RV, trace TR PASP 30 to 35 mmHg
Echo 05/19/2025: EF 70 to 75%, upper normal RV size and normal RV function, no significant valvular heart disease
Plan:
Acute hypoxic respiratory failure with acute heart failure with preserved ejection fraction
-Volume status assessment is difficult with morbid obesity and BMI greater than 50 but she still appears volume overloaded
- She did well with the addition of Zaroxolyn 2.5 mg on 05/22 with 17 lns weight loss in 2 days. Will give an additional dose of Zaroxolyn 2.5 mg (05/24) today. Creat stable at 1.1
- proBNP improved from 1600 (05/18) to 854 (05/24)
- Close monitoring of renal function and electrolytes.
- K+ 3.9 will replete, continue 20 meq BID
-Patient had previously been on Farxiga 10 mg daily at the time of admission which is currently held. If no contraindications would resume at time of discharge.
- As an outpatient she would likely benefit and be a good candidate for GLP-1 agonists
Sinus pauses during sleep noted on telemetry likely related to sleep apnea. Patient is compliant with CPAP at home however has not been utilizing during this hospitalization. Bradycardia and pauses improved with CPAP during hospitalization. Monitor
telemetry
Abnormal cardiac troponin without chest pain, suspect acute nonischemic myocardial injury due to heart failure exacerbation
History of PAF/flutter on Eliquis anticoagulation and amiodarone
Chronic normocytic anemia with hemoglobin 8.3 g/dL�hemoglobin has been stable this admission but should have a workup if not previously done as an outpatient
History of hypothyroidism status post thyroidectomy for thyroid nodule�noted
History of COPD and sleep apnea�continue use of CPAP. Recommend outpatient pulmonary follow-up
Patient came to the ER yesterday with increased SOB and edema and was admitted with acute HF and cardiology has been consulted. Patient was admitted to [facility] from 12/18/2024 until 12/28/2024 with acute on chronic HF and acute on chronic hypoxic and
hypercapnic respiratory failure. During that admission the patient was diuresed to a discharge weight of 257 lbs. patient was sent to on Lasix 80 mg a.m. and 40 mg p.m. daily and the dose was eventually decreased to 80 mg daily and despite this
reduction in dose the patient reports that her LE edema was overall improved and stable and she was able to be discharged to home without oxygen. Patient was finally discharged to home 04/05/2025 and has had VNA services and is waiting for home
health aides through the [facility] to start in the next couple weeks. In the meantime [facility] and got the dose of Lasix reduced to 60 mg in the last couple weeks. Patient reports that since she was
discharged to home she is ordering from [employer] and she has also been rewarding herself with treats because of her smoking cessation since December, so when she feels stressed instead of smoking she orders herself what ever she wants. Patient is not
following any salt or fluid restriction at home. She is incapable of weighing herself at home on a daily basis. Increased LE edema over the last 1 to 2 weeks. Towards the end of our conversation she admits that most of the time she does not take
any of her Lasix, but over the last week she started taking it daily and noticed some improvement in edema, and then she seemed to have overall decrease in urine output and edema got worse so she came to the ER yesterday. Patient feels
symptomatically improved following initial attempts at IV diuresis, but remains hypoxic and on supplemental oxygen. She was not using supplemental oxygen at home.
Progress Note - Bleach Packer
Subjective
Date of Service: May 24, 2025
Patient seen and examined. Patient resting comfortably in bed. Reports significantly improved shortness of breath. Continues to have good response to ongoing diuresis. Denies chest pain
Objective
Labs:
05/22/25 05:28
05/24/25 07:27
Labs
Hgb 8.3 g/dL (12.0-16.0) L 05/22/25 05:28
Hct 30.6 % (37.0-47.0) L 05/22/25 05:28
Plt Count 249 10^3/uL (130-400) 05/22/25 05:28
Sodium 138 mmol/L (135-145) 05/24/25 07:27
Potassium 3.9 mmol/L (3.5-5.1) 05/24/25 07:27
BUN 35 mg/dl (7-17) H 05/24/25 07:27
Creatinine 1.1 mg/dL (0.6-1.0) H 05/24/25 07:27
Glucose 79 mg/dl (70-99) 05/24/25 07:27
Vital Signs and I&O:
Vital Signs
Temp Pulse Resp BP Pulse Ox
97.5 F 73 18 109/66 95
05/24/25 11:30 05/24/25 12:32 05/24/25 11:30 05/24/25 12:32 05/24/25 11:30
Vital Signs
Temp Pulse Resp BP Pulse Ox
97.5 F 73 18 109/66 95
05/24/25 11:30 05/24/25 12:32 05/24/25 11:30 05/24/25 12:32 05/24/25 11:30
Intake & Output
05/22/25 05/23/25 05/24/25 05/25/25
06:59 06:59 06:59 06:59
Intake Total 2420 / 2420 840 / 840 1020 / 1020
Output Total 2200 / 2200 3220 / 3220 4050 / 4050
Balance 220 / 220 -2380 / -2380 -3030 / -3030
Physical Exam
Physical Exam
GEN: No distress, awake, Ox3, lying in bed, morbidly obese
HEENT: supple, anicteric, mmm
LUNGS: CTA, no wheezes/rales; on room air
CV: Reg, S1/S2, no murmur, rub or gallop
ABD: soft, BS+, NT/ND
EXT: Trace edema, legs wrapped with compression Efraín bandages
NEURO: Gross non-focal
SKIN: No rash, warm dry pink
--- NOTE | 2025-05-24 13:13 | CM ---
PT indicated VN .
Remains on IV Lasix.
Pt requested resumption of [facility] . Accepted in Care port .
Pt may need van for discharge.
PLAN Home with [facility] fax [phone]
[2025-05-25] VITALS (7 sets, daily range): BP systolic 115–148; BP diastolic 48–69; PULSE 70; O2SAT 96; BMI 48.9
[2025-05-25] MEDS: SYNTHROID 200 MCG PO (05:51)
[2025-05-25 07:07] LABS: Blood Urea Nitrogen 38 mg/dl (7-17); Calcium 9.4 mg/dl (8.4-10.2); Chloride 92 mmol/L (98-107); Estimated Creatinine Clearance 44 ml/min; Glucose 82 mg/dl (70-99); Potassium 3.5 mmol/L (3.5-5.1); Sodium 139 mmol/L (135-145); eGFR 42.09
[2025-05-25 07:15] LABS: Carbon Dioxide 38 mmol/L (22-30)
--- NOTE | 2025-05-25 07:22 | W.PN.HOSP.TC ---
Today's Communication/Plan
-
Weight decreasing
1x dose of IV Lasix today, no further Zaroxolyn
Assessment / Plan
Assessment / Plan
Physical Exam
Gen-AAOx3, NAD
HEENT-NC, AT, clear oral mm
Neck-supple
CV-reg, no M, +S1/S2
Lungs-clear B/L
Abd-soft, NT, ND
Ext-bilateral lower extremity edema, improving
Musculoskeletal-no cyanosis
Skin-warm and dry
Neuro-grossly non-focal
Psych-calm, cooperative
Assessment/Plan
Acute hypoxic respiratory failure -due to acute heart failure induced pulmonary edema. Oxygenation improved, now on room air. Does not use oxygen at baseline.
Admission chest x-ray shows cardiomegaly with small bilateral pleural effusions and mild interstitial edema.
Acute on chronic heart failure with preserved EF - continue IV Lasix -- 1x dose today. No further Zaroxolyn today, especially with decrease in weight, increase in creatinine, improvement in proBNP.
Appears that Zaroxolyn has helped.
Developing contraction alkalosis, BUN to creatinine ratio elevated but stable.
Echocardiogram shows LVEF 70 to 75%, upper normal RV size with normal systolic function. No significant valvular disease. No significant change compared to December echocardiogram.
Sinus pauses (suspected secondary to sleep apnea) - noted this admission, during sleep, 3.4 seconds. Defer to cardiology. Bradycardia and pauses improved with CPAP during hospitalization. Keep potassium >4 and magnesium >2.
Troponin elevation -suspect acute nonischemic myocardial injury due to heart failure exacerbation. Troponin trended down.
Hypokalemia -improved.
Hypocalcemia -improved. Elevated PTH noted, 99.5. Suspect underlying vitamin D deficiency. Could be evaluated and treated as an outpatient.
Hypomagnesemia -improved.
COPD without exacerbation -stable.
Paroxysmal atrial fibs/flutter -on amiodarone, Eliquis.
Essential hypertension -stable.
Hyperlipidemia -atorvastatin.
Abdominal aortic aneurysm
Sleep apnea -on CPAP.
Hypothyroidism -continue levothyroxine. Underwent previous thyroidectomy. TSH 7.8, free T4 1.5. Previous TSH was 8.0 in December, free T4 was 0.86.
Levothyroxine dose increased to 200 mcg daily in the hospital, recheck thyroid labs in 3 to 4 weeks.
Chronic iron deficiency anemia -has pica. Will need evaluation for etiology of anemia if not already done.
Hemoglobin currently at baseline. Discharge hemoglobin in December was 7.7.
Hemoglobin here has been stable.
History of tobacco dependence -she quit smoking.
DNR
Super morbid obesity
PT/OT -Home health recommended.
Anticipated Discharge: 24 - 48 hours
Subjective/Interval History
-
Date of Service: May 25, 2025
Patient was seen and examined. She denied any chest pain, SOB or any other new symptoms or complaints.
Objective Data
-
Labs:
Laboratory Results
05/25/25
06:08
Sodium 139
Potassium 3.5
Chloride 92 L
Carbon Dioxide 38 H
BUN 38 H
Creatinine 1.3 H
Glucose 82
Calcium 9.4
Vital Signs:
Vital Signs
Temp Pulse Resp BP Pulse Ox
98.4 F 74 22 148/60 92
05/25/25 03:23 05/25/25 03:23 05/25/25 03:23 05/25/25 03:23 05/25/25 03:23
I&O
05/24/25 05/25/25 05/26/25
06:59 06:59 06:59
Intake Total 1020 / 1020 1320 / 1320
Output Total 4050 / 4050 6280 / 6280
Balance -3030 / -3030 -4960 / -4960
[2025-05-25] MEDS: ADVAIR HFA 115/21 MCG INHALER 2 PUFF INH ×2 (07:30→19:24)
--- NOTE | 2025-05-25 09:20 | W.PN.CARDCBS ---
Addendum entered and electronically signed by Braxton Borjas, DO 05/25/25 09:41:
..
Pt did not receive her am lasix. Will give Lasix 80 mg PO X 1 this am and assess response and cr.
Original Note:
Today's Communication / Plan
-
Weight continues to come down. She received Zaroxolyn 05/24 with lasix
Within 10 lbs of prior dry wt from December 2024 admit. Her actual dry wt is unclear and with rising cr she may be close to it.
Hold further lasix today and reassess volume status and cr in AM.
No further Zaroxolyn for now
proBNP improved from 1600 (05/18) to 854 (05/24)
Cont to replete lytes as needed.
Impression / Plan
-
.
PCP: Dr. Preethi Rush
Primary Rn Palliative Care: Dr. Guevara of [facility], last visit 12/2023
Impression:
Admitted with acute hypoxic respiratory failure and acute HF 05/18/2025
Recent admission for acute HF 12/18/2024 until 12/28/2024 followed by rehab stay at [facility] until 04/05/2025
Previous admission to [facility] for new A-fib 12/14/2024 until 12/16/2024
Acute HFpEF
Elevated troponin
Paroxysmal Afib
Paroxysmal typical atrial flutter
Chronic Eliquis OAC
HTN
Hyperlipidemia
Thyroid nodule status post thyroidectomy
Resultant hypothyroidism
AAA
Former smoker, quit 12/2024
Obesity
MARLEY
Forgetfulness
DNR CODE STATUS
ECHO 12/18/24: Mild concentric LVH, EF 70 to 75%, normal RV, trace TR PASP 30 to 35 mmHg
Echo 05/19/2025: EF 70 to 75%, upper normal RV size and normal RV function, no significant valvular heart disease
Plan:
Weight continues to come down. She received Zaroxolyn 05/24 with lasix
Within 10 lbs of prior dry wt from December 2024 admit. Her actual dry wt is unclear and with rising cr she may be close to it.
Hold further lasix today and reassess volume status and cr in AM.
No further Zaroxolyn for now
proBNP improved from 1600 (05/18) to 854 (05/24)
Cont to replete lytes as needed.
Patient had previously been on Farxiga 10 mg daily at the time of admission which is currently held. If no contraindications could consider resuming at time of discharge.
Sinus pauses during sleep noted on telemetry likely related to sleep apnea. Patient is compliant with CPAP at home however has not been utilizing during this hospitalization.
Bradycardia and pauses improved with CPAP during hospitalization.
Cont medical therapy of nonMI troponin.
History of PAF/flutter on Eliquis anticoagulation and amiodarone
Monitor H/H
History of hypothyroidism status post thyroidectomy for thyroid nodule
History of COPD and sleep apnea�continue use of CPAP.
Discussed with nursing
Patient came to the ER yesterday with increased SOB and edema and was admitted with acute HF and cardiology has been consulted. Patient was admitted to [facility] from 12/18/2024 until 12/28/2024 with acute on chronic HF and acute on chronic hypoxic and
hypercapnic respiratory failure. During that admission the patient was diuresed to a discharge weight of 257 lbs. patient was sent to on Lasix 80 mg a.m. and 40 mg p.m. daily and the dose was eventually decreased to 80 mg daily and despite this
reduction in dose the patient reports that her LE edema was overall improved and stable and she was able to be discharged to home without oxygen. Patient was finally discharged to home 04/05/2025 and has had VNA services and is waiting for home
health aides through the [facility] agency on aging to start in the next couple weeks. In the meantime patient says that Georgia SWEENEY called her PCP and got the dose of Lasix reduced to 60 mg in the last couple weeks. Patient reports that since she was
discharged to home she is ordering from [employer] and she has also been rewarding herself with treats because of her smoking cessation since December, so when she feels stressed instead of smoking she orders herself what ever she wants. Patient is not
following any salt or fluid restriction at home. She is incapable of weighing herself at home on a daily basis. Increased LE edema over the last 1 to 2 weeks. Towards the end of our conversation she admits that most of the time she does not take
any of her Lasix, but over the last week she started taking it daily and noticed some improvement in edema, and then she seemed to have overall decrease in urine output and edema got worse so she came to the ER yesterday. Patient feels
symptomatically improved following initial attempts at IV diuresis, but remains hypoxic and on supplemental oxygen. She was not using supplemental oxygen at home.
Progress Note - Rn Palliative Care
Subjective
Date of Service: May 25, 2025
Pt seen and examined. Breathing better. No cp.
Objective
Labs:
05/22/25 05:28
05/25/25 06:08
Labs
Hgb 8.3 g/dL (12.0-16.0) L 05/22/25 05:28
Hct 30.6 % (37.0-47.0) L 05/22/25 05:28
Plt Count 249 10^3/uL (130-400) 05/22/25 05:28
Sodium 139 mmol/L (135-145) 05/25/25 06:08
Potassium 3.5 mmol/L (3.5-5.1) 05/25/25 06:08
BUN 38 mg/dl (7-17) H 05/25/25 06:08
Creatinine 1.3 mg/dL (0.6-1.0) H 05/25/25 06:08
Glucose 82 mg/dl (70-99) 05/25/25 06:08
Vital Signs and I&O:
Vital Signs
Temp Pulse Resp BP Pulse Ox
98.4 F 69 16 148/60 94
05/25/25 03:23 05/25/25 07:34 05/25/25 07:34 05/25/25 03:23 05/25/25 07:34
Vital Signs
Temp Pulse Resp BP Pulse Ox
98.4 F 69 16 148/60 94
05/25/25 03:23 05/25/25 07:34 05/25/25 07:34 05/25/25 03:23 05/25/25 07:34
Intake & Output
05/23/25 05/24/25 05/25/25 05/26/25
06:59 06:59 06:59 06:59
Intake Total 840 / 840 1020 / 1020 1320 / 1320
Output Total 3220 / 3220 4050 / 4050 6280 / 6280
Balance -2380 / -2380 -3030 / -3030 -4960 / -4960
Physical Exam
Physical Exam
General: No acute distress, AAOX3
Neck: Negative JVD
Heart: Regular, Negative S3 positive S1/S2, Negative S4, No murmur
Lungs: CTA b/l, negative wheezes/rales/rhonchi
Abd: Obesity. Positive BS, NT/ND, neg rebound/rigidity/guarding
Ext: Negative cyanosis/clubbing/edema
Neuro: nonfocal
[2025-05-25] MEDS: KCL 20 MEQ PO ×3 (10:25→19:55)
[2025-05-25] MEDS: LASIX 80 MG PO (10:25)
[2025-05-25] MEDS: SENOKOT-S PO ×3 (10:25→19:57)
[2025-05-25] MEDS: LIPITOR 20 MG PO (10:26)
[2025-05-25] MEDS: PACERONE 200 MG PO (10:26)
[2025-05-25] MEDS: ELIQUIS 5 MG PO ×2 (10:27→19:56)
[2025-05-25] MEDS: MIRALAX PO ×2 (10:27→10:32)
[2025-05-25] MEDS: TOPROL XL 25 MG PO (10:27)
[2025-05-25] MEDS: LASIX IV (10:27)
[2025-05-25] MEDS: DESENEX/MITRAZOL/ZEASORB 1 APPLIC TOPICAL ×2 (10:28→19:56)
[2025-05-25] MEDS: FLUSH (NSS) 1 FLUSH IV (10:28)
--- NOTE | 2025-05-25 16:37 | CM ---
Watching creatinine overnight. Continues with IV Lasix Possible DC in the a.m.
Plan: Home with Georgia SWEENEY
[2025-05-25] MEDS: TYLENOL 650 MG PO (21:36)
--- NOTE | 2025-05-26 03:02 | DOWNTIME ---
There was a [employer] Downtime on 05/26/2025 from 0100 to 05/26/2025 at 0255. Downtime documentation of patient's care, including medication administrations, has been reconciled in the electronic record per guidelines. Refer to the
patient's paper chart under the miscellaneous tab to see printed paper medication records and downtime forms.
[2025-05-26 03:48] VITALS: BP 141/61
[2025-05-26 05:05] VITALS: BMI 48.7
[2025-05-26] MEDS: SYNTHROID 200 MCG PO (07:12)
--- NOTE | 2025-05-26 07:28 | W.PN.HOSP.TC ---
Addendum entered and electronically signed by Jah Liu MD 05/29/25 12:45:
CKD 3
Original Note:
Today's Communication/Plan
-
Discharge today
Assessment / Plan
Assessment / Plan
Physical Exam
Gen-AAOx3, NAD
HEENT-NC, AT, clear oral mm
Neck-supple
CV-reg, no M, +S1/S2
Lungs-clear B/L
Abd-soft, NT, ND
Ext-bilateral lower extremity edema, improving
Musculoskeletal-no cyanosis
Skin-warm and dry
Neuro-grossly non-focal
Psych-calm, cooperative
Assessment/Plan
Acute hypoxic respiratory failure -due to acute heart failure induced pulmonary edema. Oxygenation improved, now on room air. Does not use oxygen at baseline.
Admission chest x-ray shows cardiomegaly with small bilateral pleural effusions and mild interstitial edema. Patient does not need home oxygen on discharge, confirmed with nurse on 05/26/25 based on O2 assessment.
Acute on chronic heart failure with preserved EF - resume Lasix on discharge with Lasix 80 mg PO BID. No further Zaroxolyn, especially with decrease in weight, increase in creatinine, improvement in proBNP.
Appears that Zaroxolyn has helped.
Developing contraction alkalosis, BUN to creatinine ratio elevated but stable.
Echocardiogram shows LVEF 70 to 75%, upper normal RV size with normal systolic function. No significant valvular disease. No significant change compared to December echocardiogram.
Recheck BMP and Magnesium in 1 week
Sinus pauses (suspected secondary to sleep apnea) - noted this admission, during sleep, 3.4 seconds. Defer to cardiology. Bradycardia and pauses improved with CPAP during hospitalization. Keep potassium >4 and magnesium >2.
Troponin elevation -suspect acute nonischemic myocardial injury due to heart failure exacerbation. Troponin trended down.
Hypokalemia -improved.
Hypocalcemia -improved. Elevated PTH noted, 99.5. Suspect underlying vitamin D deficiency. Could be evaluated and treated as an outpatient.
Hypomagnesemia -improved.
COPD without exacerbation -stable.
Paroxysmal atrial fibs/flutter -on amiodarone, Eliquis.
Essential hypertension -stable.
Hyperlipidemia -atorvastatin.
Abdominal aortic aneurysm
Sleep apnea -on CPAP.
History of hypothyroidism status post thyroidectomy for thyroid nodule-continue levothyroxine. Underwent previous thyroidectomy. TSH 7.8, free T4 1.5. Previous TSH was 8.0 in December, free T4 was 0.86.
Levothyroxine dose increased to 200 mcg daily in the hospital, recheck thyroid labs in 3 to 4 weeks.
Chronic iron deficiency anemia -has pica. Will need evaluation for etiology of anemia if not already done.
Hemoglobin currently at baseline. Discharge hemoglobin in December was 7.7.
Hemoglobin here has been stable.
History of tobacco dependence -she quit smoking.
DNR
Super morbid obesity
PT/OT -Home health recommended.
More than 30 minutes spent in discharge including
Final examination of the patient
Summarizing hospital stay
Instructions for continuing care to all relevant caregivers
Preparation of discharge records, prescriptions, and referral forms
Total time spent (in minutes): 37
Anticipated Discharge: Today
Subjective/Interval History
-
Date of Service: May 26, 2025
Patient was seen and examined. She denied any chest pain, shortness of breath or any other new symptoms or complaints.
Objective Data
-
Labs:
Laboratory Results
05/26/25
06:50
Sodium Pending
Potassium Pending
Chloride Pending
Carbon Dioxide Pending
BUN Pending
Creatinine Pending
Glucose Pending
Calcium Pending
Vital Signs:
Vital Signs
Temp Pulse Resp BP Pulse Ox
97.8 F 64 20 141/61 96
05/26/25 03:48 05/26/25 03:48 05/26/25 03:48 05/26/25 03:48 05/26/25 03:48
I&O
05/25/25 05/26/25 05/27/25
06:59 06:59 06:59
Intake Total 1320 / 1320 1080 / 1080
Output Total 6280 / 6280 3400 / 3400
Balance -4960 / -4960 -2320 / -2320
[2025-05-26] MEDS: ADVAIR HFA 115/21 MCG INHALER 2 PUFF INH (07:29)
[2025-05-26 07:39] VITALS: BP 117/50
[2025-05-26 08:18] LABS: Blood Urea Nitrogen 37 mg/dl (7-17); Calcium 9.4 mg/dl (8.4-10.2); Chloride 96 mmol/L (98-107); Estimated Creatinine Clearance 52 ml/min; Glucose 79 mg/dl (70-99); Magnesium 2.1 mg/dl (1.6-2.3); Potassium 3.6 mmol/L (3.5-5.1); Sodium 139 mmol/L (135-145); eGFR 51.43
[2025-05-26] MEDS: LIPITOR 20 MG PO (08:35)
[2025-05-26] MEDS: PACERONE 200 MG PO (08:35)
[2025-05-26] MEDS: SENOKOT-S PO (08:36)
[2025-05-26] MEDS: MIRALAX PO (08:36)
[2025-05-26] MEDS: TOPROL XL 25 MG PO (08:36)
[2025-05-26] MEDS: ELIQUIS 5 MG PO (08:36)
[2025-05-26] MEDS: DESENEX/MITRAZOL/ZEASORB 1 APPLIC TOPICAL (08:37)
[2025-05-26] MEDS: KCL 20 MEQ PO (08:37)
[2025-05-26 09:21] LABS: Carbon Dioxide 35 mmol/L (22-30)
--- NOTE | 2025-05-26 10:21 | W.PN.CARDCBS ---
Today's Communication / Plan
-
Changed to p.o. Lasix and restart Farxiga
Stable cardiology status for discharge
Will sign off, call with questions
Impression / Plan
-
.
PCP: Dr. Preethi Rush
Primary Grain Elevator Superintendent: Dr. Guevara of [facility], last visit 12/2023
Impression:
Admitted with acute hypoxic respiratory failure and acute HF 05/18/2025
Recent admission for acute HF 12/18/2024 until 12/28/2024 followed by rehab stay at [facility] until 04/05/2025
Previous admission to [facility] for new A-fib 12/14/2024 until 12/16/2024
Acute HFpEF
Elevated troponin
Paroxysmal Afib
Paroxysmal typical atrial flutter
Chronic Eliquis OAC
HTN
Hyperlipidemia
Thyroid nodule status post thyroidectomy
Resultant hypothyroidism
AAA
Former smoker, quit 12/2024
Obesity
MARLEY
Forgetfulness
DNR CODE STATUS
ECHO 12/18/24: Mild concentric LVH, EF 70 to 75%, normal RV, trace TR PASP 30 to 35 mmHg
Echo 05/19/2025: EF 70 to 75%, upper normal RV size and normal RV function, no significant valvular heart disease
Plan:
She is a very difficult examination and unclear what is her dry weight
She remains on room air
Her weight is 266 pounds and she was 257 pounds in December 2024 on discharge
Will change IV Lasix to Lasix 80 mg p.o. twice daily
Check renal profile in 1 week
Will resume Farxiga
Stable cardiology status for discharge
Cont medical therapy of nonMI troponin.
History of PAF/flutter on Eliquis anticoagulation and amiodarone
History of hypothyroidism status post thyroidectomy for thyroid nodule
History of COPD and sleep apnea�continue use of CPAP.
Discussed with primary service
Patient came to the ER yesterday with increased SOB and edema and was admitted with acute HF and cardiology has been consulted. Patient was admitted to [facility] from 12/18/2024 until 12/28/2024 with acute on chronic HF and acute on chronic hypoxic and
hypercapnic respiratory failure. During that admission the patient was diuresed to a discharge weight of 257 lbs. patient was sent to on Lasix 80 mg a.m. and 40 mg p.m. daily and the dose was eventually decreased to 80 mg daily and despite this
reduction in dose the patient reports that her LE edema was overall improved and stable and she was able to be discharged to home without oxygen. Patient was finally discharged to home 04/05/2025 and has had VNA services and is waiting for home
health aides through the [facility] on aging to start in the next couple weeks. In the meantime patient says that [place] called her PCP and got the dose of Lasix reduced to 60 mg in the last couple weeks. Patient reports that since she was
discharged to home she is ordering from [employer] and she has also been rewarding herself with treats because of her smoking cessation since December, so when she feels stressed instead of smoking she orders herself what ever she wants. Patient is not
following any salt or fluid restriction at home. She is incapable of weighing herself at home on a daily basis. Increased LE edema over the last 1 to 2 weeks. Towards the end of our conversation she admits that most of the time she does not take
any of her Lasix, but over the last week she started taking it daily and noticed some improvement in edema, and then she seemed to have overall decrease in urine output and edema got worse so she came to the ER yesterday. Patient feels
symptomatically improved following initial attempts at IV diuresis, but remains hypoxic and on supplemental oxygen. She was not using supplemental oxygen at home.
Progress Note - Grain Elevator Superintendent
Subjective
Date of Service: May 26, 2025
No complaints
Objective
Labs:
05/22/25 05:28
05/26/25 06:50
Labs
Hgb 8.3 g/dL (12.0-16.0) L 05/22/25 05:28
Hct 30.6 % (37.0-47.0) L 05/22/25 05:28
Plt Count 249 10^3/uL (130-400) 05/22/25 05:28
Sodium 139 mmol/L (135-145) 05/26/25 06:50
Potassium 3.6 mmol/L (3.5-5.1) 05/26/25 06:50
BUN 37 mg/dl (7-17) H 05/26/25 06:50
Creatinine 1.1 mg/dL (0.6-1.0) H 05/26/25 06:50
Glucose 79 mg/dl (70-99) 05/26/25 06:50
Vital Signs and I&O:
Vital Signs
Temp Pulse Resp BP Pulse Ox
97.7 F 60 18 117/50 98
05/26/25 07:39 05/26/25 08:35 05/26/25 07:39 05/26/25 08:35 05/26/25 07:39
Vital Signs
Temp Pulse Resp BP Pulse Ox
97.7 F 60 18 117/50 98
05/26/25 07:39 05/26/25 08:35 05/26/25 07:39 05/26/25 08:35 05/26/25 07:39
Intake & Output
05/24/25 05/25/25 05/26/25 05/27/25
06:59 06:59 06:59 06:59
Intake Total 1020 / 1020 1320 / 1320 1080 / 1080
Output Total 4050 / 4050 6280 / 6280 3400 / 3400
Balance -3030 / -3030 -4960 / -4960 -2320 / -2320
Physical Exam
Physical Exam
General: Well developed, well nourished in NAD.
Neck: Supple, no JVD, HJR, carotids +2 B/L, no bruits bilaterally.
Heart: Non displaced PMI, RRR, no murmurs, No S3, S4, no rubs.
Lungs: Scattered rhonchi
Extremities: No clubbing, cyanosis or edema bilaterally.
Neuro: Grossly nonfocal, awake, alert and oriented x3.
[2025-05-26] MEDS: FARXIGA 10 MG PO (10:30)
--- NOTE | 2025-05-26 12:53 | CM ---
MD indicated patient ready
Remains on IV Lasix.
Pt requested resumption of [facility] . Accepted in Care port .
Pt said family will transport her home.
PLAN Home with Georgia SWEENEY fax [phone]
--- NOTE | 2025-05-26 12:57 | PTCARENOTE ---
pt w/ pulse ox 97% at rest. pt ambulated to the hallway and back with pulse ox drop to 90%. Dr. degroot made aware.
[2025-05-26 13:01] VITALS: BP 115/58
[2025-05-26] MEDS: KCL 40 MEQ PO (13:38)
--- NOTE | 2025-05-26 13:44 | W.DCSUMMARY ---
Discharge Summary
Discharge Data
Date of Admission: 05/18/25
Date of Discharge: 05/26/25
Total time spent discharging patient (in min): 37
-
Pending Results: No
Hospital Course
79-year-old female with past medical history of chronic heart failure preserved EF, chronic hypoxic/hypercapnic respiratory failure on CPAP, COPD, ex-smoker, A-fib/a flutter new Dx 12/16/2024 Zoltan Cardona, HTN, HLD, abdominal aortic aneurysm,
tobacco use, obesity, sleep apnea, thyroid nodule status post thyroidectomy/hypothyroidism, forgetfulness, class III obesity, chronic ambulatory dysfunction uses walker at baseline and iron deficiency anemia, presented with bilateral lower extremity
edema and worsening shortness of breath. Patient was started on intravenous Lasix. Patient's Midodrine was reduced since blood pressure was elevated. Echo showed stable ejection fraction which was preserved (not reduced). Patient's TSH was checked
and was 7.8, free T4 was 1.5 -- previous TSH was 8.0 in December, and free T4 was 0.86. Patient's Levothyroxine was increased from 175 mcg daily to 200 mcg daily. Patient was given Zaroxolyn diuretics too. Patient had significant pauses, greater than 3
seconds, on her heart rhythm while sleeping -- cardiology that patient's sinus pauses during sleep on telemetry was likely related to sleep apnea -- patient was noted to be compliant with CPAP at home however had not been utilizing it during the
hospitalization. Patient's creatinine increased and further diuretic was held temporarily. Patient was soon stable for discharge with oral diuretics.
Discharge Plan
-
Patient Disposition: Home with Home Care
Discharge Diagnosis/Procedures: Cardiomegaly with small bilateral pleural effusions and likely mild interstitial edema, as per radiologist's Chest X-Ray report
Acute hypoxic respiratory failure - due to acute heart failure induced pulmonary edema
Acute on chronic heart failure with preserved ejection fraction
Sinus pauses (suspected secondary to sleep apnea)
Troponin elevation - suspect acute non-ischemic myocardial injury due to heart failure exacerbation
Hypokalemia -improved.
Hypocalcemia -improved
Elevated PTH level noted, 99.5
Hypomagnesemia -improved.
COPD without exacerbation
Paroxysmal atrial fibrillation/flutter
Essential hypertension
Hyperlipidemia
Abdominal aortic aneurysm
Sleep apnea-on CPAP.
History of hypothyroidism status post thyroidectomy for thyroid nodule
Chronic iron deficiency anemia
History of tobacco dependence
Super morbid obesity
Condition: Fair
Diet: Low Fat, Low Cholesterol, Low Sodium and Restrict fluids to 64 oz
Activity: As tolerated
Blood Work: CBC, BMP and Magnesium in 4 to 5 days with your primary care provider's office
Other Services: VN
Specialty Instructions: Weigh Daily- Call MD for wt gain/loss 3 lbs overnight/5 lbs in 1 week
Activity Restrictions/Additional Instructions:
Your outpatient doctor needs to try to keep your blood potassium level 4 mmol/L or above (but of course still within normal limits) and your blood magnesium level 2 mg/dl or above (but of course still within normal limits)
Continue CPAP at home
You need to tell your outpatient doctor to check your parathyroid hormone levels and also your Vitamin D levels
Instructions: *[facility] Heart Failure Instructions
Referrals:
Preethi Rush MD [Family Provider, Family Practice] - in less than 1 week
Referral Note: Hospitalization Follow-Up
Yg Arredondo MD [Active, Pulmonary Medicine] - in three to four weeks
Referral Note: Sleep apnea follow-up
Additional Discharge Medication Instructions: Furosemide increased to 80 mg TWICE per day (from 80 mg once per day).
Levothyroxine dose increased to 200 mcg daily in the hospital, recheck thyroid labs in 3 to 4 weeks.
Metoprolol Succinate REDUCED from 25 mg BID to 25 mg ONCE daily.
Midodrine reduced from 10 mg TID to 5 mg TID.
Dapagliflozin is a new medication for your heart.
Ferrous Sulfate is a new medication.
Prescriptions:
New
dapagliflozin propanediol [Farxiga] 10 mg tablet
10 mg PO DAILY Qty: 30 11RF
furosemide 80 mg Tablet
80 mg PO BID@0800,1600 Qty: 60 1RF
levothyroxine 200 mcg Tablet
200 mcg PO DAILY@0600 Qty: 30 1RF
metoprolol succinate 25 mg Tablet Extended Release 24 Hr
25 mg PO DAILY Qty: 30 1RF
midodrine 5 mg Tablet
5 mg PO TID@0800,1300,1800 Qty: 90 1RF
Rx Instructions:
*Avoid dosing after evening meal or within 4 hours of bedtime*
ferrous sulfate 325 mg (65 mg iron) tablet
325 mg PO Q48H Qty: 14 0RF
Continued
atorvastatin 20 mg Tablet
20 mg PO DAILY
apixaban 5 mg Tablet
5 mg PO BID
ipratropium-albuterol 0.5 mg-3 mg(2.5 mg base)/3 mL Solution For Nebulization
3 ml inhalation R Q4HPRN PRN (Reason: sob) Qty: 0 0RF
fluticasone propion-salmeterol [Advair Diskus] 250-50 mcg/dose Blister With Device
1 inh INHALATION R BID
amiodarone 200 mg tablet
200 mg PO DAILY
potassium chloride 20 mEq tablet,ER particles/crystals
20 meq PO BID
docusate sodium 100 mg capsule
100 mg PO BIDPRN PRN (Reason: constipation)
Discontinued
levothyroxine 175 mcg Tablet
175 mcg PO DAILY
midodrine 10 mg Tablet
10 mg PO TID
furosemide 80 mg tablet
80 mg PO DAILY
metoprolol succinate 25 mg tablet extended release 24 hr
25 mg PO BID
Discharge Orders:
Discharge Patient (As Directed); Ordered 05/26/25
Ordered By: Jah Liu
Discharge Date and Time
Discharge Date/Time: 05/26/25 15:36
Print Language: KINYARWANDA
[2025-05-26] MEDS: FLUZONE HIGH-DOSE 2025-26 0.5 ML IM (13:53)
--- NOTE | 2025-05-26 14:16 | PN.CDI ---
CDI
- -
CDI:
Physician Documentation Request
Admit Date: 05/18/25 17:53
Dear Doctor Noe,
Please review the following and provide your response in the progress notes.
Clinical Indicators:
- Patient admit for acute on chronic HFpEF
- per H&P no renal medical history
- 05/18-05/24 IV Lasix given
Laboratory Tests
05/19/25 05/21/25 05/22/25
06:20 07:09 05:28
Creatinine 1.1 H 1.1 H 1.1 H
eGFR 51.43 51.43 51.43
05/24/25 05/25/25 05/26/25
07:27 06:08 06:50
Creatinine 1.1 H 1.3 H 1.1 H
eGFR 51.43 42.09 51.43
Please clarify which of the following accurately represents the patient's renal status:
DIONICIO (please specify baseline creatinine)
CKD 3
Other (please specify)
Criteria for DIONICIO*
1 Increase in serum creatinine by > or = to 0.3 mg/dL (> or = to 26.5 micromol/L) within 48 hours, OR
2 Increase in serum creatinine to > or = to 1.5 times baseline, which is known or presumed to have occurred within 7 days, OR
3 Urine volume < 0.5 nL/kg/hour for six hours
Stages of Chronic Kidney Disease*
Level Description GFR
G1 Normal or High >90
G2 Mildly decreased 60-89
G3a Mildly to moderately decreased 45-59
G3b Moderately to severely decreased 30-44
G4 Severely decreased 15-29
G5 Kidney failure <15
Use of terms such as suspected, likely, concern for, or probable (associated with a specific diagnosis that is being evaluated, monitored, or treated as if it exists) are acceptable and can be coded in the inpatient setting, when documented at the
time of discharge.
Thank you,
Tyler Uriarte RN
CDI Specialist
Please use your independent medical judgment in providing your response.
*Source: Kidney Disease: Improving Global Outcomes (KDIGO) 2012
--- NOTE | 2025-05-28 10:42 | W.HF.CON ---
Heart Failure
- LV Function
Left ventricular function study result: LV Ejection fraction >/= 50%
Ejection Fraction Percentage: 70-75
- ARNI
Patient already on ARNI: No
Heart Failure ARNI Not Indicated: LV Ejection Fraction >/= 40%
- ACEI/ARB
Patient already on ACEI/ARB: No
Heart Failure ACEI/ARB Not Indicated: LV Ejection Fraction > 40%
- Beta Linda
Patient already on Evidence Based Beta Linda: Yes
- Mineralocorticord Receptor Antagonist
Patient already on MRA: No
Heart Failure MRA Not Indicated: LV Ejection Fraction > 40%
- SGLT-2 Inhibitor
Patient already on SGLT-2 Inhibitor: Yes
- Afib Anticoagulation
Patient already on Anticoagulation for Afib: Yes
- NYHA CHF Classification
NYHA CHF Classification Level: Class III - Symptoms w/ min exertion, interferes w/ nml daily activity (COPD)
- ACC/AHA Stage
ACC/AHA Stage: Stage C: Symptomatic Heart Failure
== END 2025-05-26 15:36 | disposition home health service (06) | DRG 682 ==
LOC: 4 EAST ACU 17:53
PROVIDERS: Clinical Nurse Specialist Family Health; Hospitalist; Internal Medicine Cardiovascular Disease; Physician Assistant; Physician Assistant Medical; ADMITTING PHYSICIAN Internal Medicine; ATTENDING PHYSICIAN Hospitalist; EMERGENCY PHYSICIAN Emergency Medicine; FAMILY PHYSICIAN Student in an Organized Health Care Education/Training Program; OTHER PHYSICIAN Internal Medicine Cardiovascular Disease
PROC: 5A09357 Assistance with Respiratory Ventilation, Less than 24 Consecutive Hours, Continuous Positive Airway Pressure (ICD-10-PCS; 2025-05-26)
PROC: 3E02340 Introduction of Influenza Vaccine into Muscle, Percutaneous Approach (ICD-10-PCS; 2025-05-26)
DX: I13.10 Hypertensive heart and chronic kidney disease without heart failure, with stage 1 through stage 4 chronic kidney disease, or unspecified chronic kidney disease (principal); I50.33 Acute on chronic diastolic (congestive) heart failure; J96.01 Acute respiratory failure with hypoxia; I48.3 Typical atrial flutter; Z68.43 Body mass index [BMI] 50.0-59.9, adult; I5A Non-ischemic myocardial injury (non-traumatic); N18.30 Chronic kidney disease, stage 3 unspecified; E83.51 Hypocalcemia; F17.200 Nicotine dependence, unspecified, uncomplicated; D72.829 Elevated white blood cell count, unspecified; E89.0 Postprocedural hypothyroidism; E66.813 Obesity, class 3; E78.00 Pure hypercholesterolemia, unspecified; D50.9 Iron deficiency anemia, unspecified; I95.1 Orthostatic hypotension; E87.6 Hypokalemia; E83.42 Hypomagnesemia; J44.9 Chronic obstructive pulmonary disease, unspecified; G47.33 Obstructive sleep apnea (adult) (pediatric); I71.40 Abdominal aortic aneurysm, without rupture, unspecified; E04.1 Nontoxic single thyroid nodule; Z66 Do not resuscitate; I95.9 Hypotension, unspecified; I48.0 Paroxysmal atrial fibrillation; Z79.01 Long term (current) use of anticoagulants; Z79.899 Other long term (current) drug therapy; Z79.890 Hormone replacement therapy; Z23 Encounter for immunization; Z79.51 Long term (current) use of inhaled steroids
CPT/HCPCS: 71046; 80048; 80053; 80061; 82728; 83540; 83550; 83735; 83880; 83970; 84100; 84439; 84443; 84484; 85025; 90662; 93005; 93308; 94640; 94660; 96365; 96375; 97163; 97167; 97530; 99285; 99406; G0008; Q9957